=== PATIENT | female | born 1970 | race Caucasian/White ===

== ENCOUNTER 2016-10-19 14:25 | Emergency (ER) | payer BC ==
[~2016-10-19 14:25] MED LIST: ALLE180T33 PO; BIAX500T PO; BIOT300T PO; FLUTISP; PERCOCET PO; SINGULAIR PO; TOPA100T PO; VICO7.5T11 PO; VITA500019 PO; ZANT150T PO; [UNRECOGNIZED DRUG - OTHER] PO
[2016-10-19] MEDS ORDERED: ONDANSETRON 4MG/2ML VIAL (J2405) As Ordered ONE (15:00)
[2016-10-19 15:13] LABS: BASO % 0.5 % (0.0-1.0); EOS # 0.3 K/mm3 (0.0-0.50); EOS % 3.3 % (0.0-3.0); LARGE UNSTAINED CELL # 0.2 K/mm3 (0.0-0.4); LARGE UNSTAINED CELL % 2.1 % (0.0-4.0); LYMPH # 3.1 K/mm3 (1.5-4.5); LYMPH % 32.7 % (24.0-44.0); MEAN CORPUSCULAR HEMOGLOBIN 28.6 pg (27.0-33.0); MEAN CORPUSCULAR HGB CONC 33.8 g/dl (32.0-36.5); MEAN CORPUSCULAR VOLUME 84.6 fl (80.0-96.0); MONO # 0.5 K/mm3 (0.0-0.8); MONO % 5.8 % (0.0-5.0); NEUTROPHILS # 5.2 K/mm3 (1.8-7.7); NEUTROPHILS % 55.6 % (36.0-66.0); PLATELET COUNT, AUTOMATED 278 k/mm3 (150-450); RED CELL DISTRIBUTION WIDTH 12.7 % (11.5-14.5); WHITE BLOOD COUNT 9.3 K/mm3 (4.0-10.0)
[2016-10-19 15:31] LABS: ALBUMIN 3.8 GM/DL (3.2-5.2); ALBUMIN/GLOBULIN RATIO 1.46 (1.00-1.93); ALKALINE PHOSPHATASE 48 U/L (45-117); ALT/SGPT 18 U/L (12-78); ANION GAP 9 MEQ/L (8-16); AST/SGOT 15 U/L (15-37); BILIRUBIN,DIRECT < 0.1 MG/DL (0.0-0.2); BILIRUBIN,TOTAL 0.1 MG/DL (0.2-1.0); BLOOD UREA NITROGEN 17 MG/DL (7-18); CALCIUM LEVEL 8.3 MG/DL (8.5-10.1); CARBON DIOXIDE LEVEL 21 MEQ/L (21-32); CHLORIDE LEVEL 110 MEQ/L (98-107); CREATININE FOR GFR 0.97 MG/DL (0.55-1.02); GLOMERULAR FILTRATION RATE > 60.0 (>58); GLUCOSE, FASTING 122 MG/DL (70-105); POTASSIUM SERUM 3.7 MEQ/L (3.5-5.1); SODIUM LEVEL 140 MEQ/L (136-145); TOTAL PROTEIN 6.4 GM/DL (6.4-8.2)
--- NOTE | 2016-10-19 16:53 | REP ---
Abdominal right upper quadrant ultrasound: There is a positive Richards's sign to transducer pressure over the right upper quadrant. The pancreas is obscured by bowel. There is no cholelithiasis, gallbladder wall thickening or pericholecystic fluid. There is no intrahepatic biliary duct dilatation. The common duct is not identified or measured. The right kidney is normal size surgeon: Seventh craniocaudad length. There is no hydronephrosis or calculus. There are scattered microcalcifications, likely vascular atheroma. There is a small sub centimeter upper pole renal cortical cyst. Impression: No cholelithiasis. No evidence of acute cholecystitis. No intrahepatic biliary duct dilatation, the common duct is not identified and measured. No hydronephrosis. Right renal cortical cyst. Pancreas obscured by bowel. No ascites. Signed by Daniel Wilcox MD 10/19/2016 04:44 P
[2016-10-19] MEDS ORDERED: GASTROGRAFIN SOLUTION 30ML (Q9963) As Ordered ONE (17:22)
[2016-10-19] MEDS ORDERED: ISOVUE-370 76% 100ML VIAL (Q9967) As Ordered ONE (18:56)
--- NOTE | 2016-10-19 19:50 | REPUSA ---
CLINICAL HISTORY: Abdominal pain. TECHNIQUE: Multiple axial, sagittal and coronal CT images were obtained through the abdomen and pelvi s after administration of oral and intravenous contrast material. COMMENTS: The liver is of uniform attenuation without mass or defect. There is no intra or extrahepatic biliary ductal dilatation. The spleen is normal. The gallbladder is within normal limits. The pancreas is of normal contour and attenuation characteristics. There is no evidence of adrenal mass. Both kidneys demonstrate prompt and equal nephrograms. The kidneys are normal in size, shape and conf iguration. There is no evidence of renal or ureteral mass. No renal or ureteral calculi are identifie d. There is no hydroureter or hydronephrosis. No evidence for appendicitis. There is no bowel wall thickening. No evidence for small or large araceli l obstruction. There is no evidence of abdominal ascites or lymphadenopathy. There is no evidence of intrinsic or extrinsic bladder mass. There is no pelvic ascites or lymphadeno agustín. S/p hysterectomy. Images of the lung bases show no evidence of pleural or parenchymal mass. There are no pleural effusi ons. The bony structures are free of lytic or blastic lesions. Multilev IMPRESSION: No evidence of acute abdominal or pelvic pathology. Thank you for your kind referral of this patient.
--- NOTE | 2016-10-19 21:03 | EDDOCDS ---
Nurse's Notes [facility] Name: Ashlee Christine Age: 46 yrs Sex: Female : 1970 Arrival Date: 10/19/2016 Time: 14:25 Bed 10 Private MD: Sil Diagnosis: Generalized abdominal pain Presentation: 10/19 14:28 Presenting complaint: Patient states: Sharp abdominal pain radiating to back and up to ck1 shoulders. C/O Nausea, denies vomiting. Risk factors: the patient reports no vaginal bleeding. Adult Sepsis Screening: The patient does not have new or worsening altered mentation. Patient's respiratory rate is less than 22. Systolic blood pressure is greater than 100. Patient has a qSOFA score of 0- Negative Sepsis Screen. Suicide/Homicide risk assessment- the patient denies having any suicidal and/or homicidal ideations and does not present with any other emotional, behavioral or mental health complaints. Status: Patient is not a neon sign servicer or dependent. Transition of care: patient was not received from another setting of care. 14:28 Acuity: POP Level 3 ck1 14:28 Method Of Arrival: Walkin/Carried/Asstd ck1 Triage Assessment: 14:35 General: Appears in no apparent distress, comfortable, Behavior is appropriate for age, ck1 cooperative. Pain: Location: back Pain currently is 5 out of 10 on a pain scale. HIV screening NA for this visit Offered previously. Respiratory: Respiratory effort is unlabored, Respiratory pattern is regular, symmetrical. GI: Reports nausea, Denies vomiting, no BM x's 3 days. Derm: Skin is intact, is healthy with good turgor, Skin is pink, warm & dry. GEOLOGICAL E LOGGER: 14:35 LMP N/A - partial hysterectomy ck1 Historical: - Allergies: Morphine (Vomit); - Home Meds: 1. Topamax 100 mg Oral tab daily 2. Nortriptyline Unknown Oral once daily 3. Singulair 10 mg Oral tab 1 tab once daily 4. Phenobarbital Oral once daily 5. Shaista 180 mg oral tab once daily 6. omeprazole 40 mg Oral cpDR 1 cap 2 times per day 7. cefdinir 300 mg Oral cap 1 cap every 12 hours 8. Vicodin ES 7.5-300 mg Oral tab PRN (Last dose: Unknown) - PMHx: GERD; Seasonal Allergies; gallbladder disease; - PSHx: back surgery; partial hysterectomy; Laparoscopy; - Social history: Smoking status: Patient states former smoker of tobacco. No barriers to communication noted, The patient speaks fluent Croatian, Speaks appropriately for age. - Family history: Not pertinent. - : The pt / caregiver states he / she is not on anticoagulants. Home medication list is obtained from the patient. - Exposure Risk Screening:: None identified. Screenin:03 Screening information is obtained from the patient. Fall risk: No risks identified. kr3 Assistance ADL's: requires no assistance with activities of daily living. Abuse/DV Screen: The patient / caregiver reports he/she is: not in a situation that causes fear, pain or injury. Nutritional screening: No deficits noted. Advance Directives: Currently, there is no health care proxy. home support is adequate. Assessment: 15:02 General: Appears in no apparent distress, comfortable, Behavior is appropriate for age, kr3 cooperative. Pain: Location: right upper quadrant Pain currently is 4 out of 10 on a pain scale. Neurological: No deficits noted. Respiratory: Respiratory effort is even, unlabored. GI: Abdomen is distended, Bowel sounds present X 4 quads. Abd is tender to palpation in right upper quadrant Reports bloating, constipation, nausea. Derm: Skin is pink, warm & dry. 15:27 Reassessment: Patient states feeling better. resting with eyes closed. kr3 16:32 Reassessment: Patient appears in no apparent distress at this time. Pain: Location: kr3 right upper quadrant Pain currently is 0 out of 10 on a pain scale. At worst was 8 out of 10 on a pain scale. Pain: Quality of pain is described as sharp, stabbing. GI: Denies nausea. Derm: Skin is normal. 16:32 Adult Sepsis Screening: The patient does not have new or worsening altered mentation. kr3 Patient's respiratory rate is less than 22. Patient has a qSOFA score of 0- Negative Sepsis Screen. 17:14 Reassessment: Patient appears in no apparent distress at this time. kr3 18:44 Reassessment: Patient appears in no apparent distress at this time. resting with eyes kr3 closed. Respiratory: Respiratory effort is even, unlabored. 19:19 Reassessment: continues to c/o upper abdominal pain.. General: Appears in no apparent jp6 distress, comfortable, Behavior is appropriate for age, cooperative. Pain: Location: abdomen Pain currently is 4 out of 10 on a pain scale. Neurological: No deficits noted. EENT: No deficits noted. Cardiovascular: Capillary refill < 3 seconds Heart tones S1 S2 present. Respiratory: Airway is patent Respiratory effort is even, unlabored, Respiratory pattern is regular, symmetrical, Breath sounds are clear bilaterally. GI: Abdomen is distended, Bowel sounds present X 4 quads. hyperactive in right upper quadrant, left upper quadrant, right lower quadrant and left lower quadrant. : No deficits noted. Derm: Skin is pink, warm & dry. Musculoskeletal: No deficits noted. 21:00 Reassessment: Patient appears in no apparent distress at this time. Patient states jp6 feeling better. Pain: Pain currently is 2 out of 10 on a pain scale. Respiratory: Airway is patent Respiratory effort is even, unlabored, Respiratory pattern is regular, symmetrical. Derm: Skin is pink, warm & dry. Vital Signs: 14:27 BP 135 / 82; Pulse 80; Resp 18; Temp 97.4(O); Pulse Ox 100% on R/A; Weight 68.04 kg elp (R); Height 5 ft. 1 in. (154.94 cm) (R); Pain 8/10; 17:53 BP 106 / 62; Pulse 62; Resp 16; Pulse Ox 100% on R/A; kr3 21:00 BP 118 / 73; Pulse 68; Resp 16; Temp 96.6; Pulse Ox 95% on R/A; Pain 2/10; jp6 14:27 Body Mass Index 28.34 (68.04 kg, 154.94 cm) [facility] Vitals: 14:27 Log In Time: October 19, 2016 at 14:17. [facility] ED Course: 14:26 Patient visited by Arielle Coffman PCA. elp 14:26 Patient moved to Waiting elp 14:27 Sil is Private Physician. elp 14:28 Patient visited by Arielle Coffman PCA. elp 14:28 Patient moved to Pre RCE elp 14:30 Triage Initiated ck1 14:36 Elsi Durham,NELSON is Primary Nurse. ck1 14:36 Kevin Arteaga MD is Attending Physician. br1 14:36 Patient moved to 10 ck1 14:45 Patient visited by Kevin Arteaga MD. br1 15:01 Lipase Sent. kr3 15:01 Liver Profile Sent. kr3 15:02 BMP Sent. kr3 15:02 CBC with Diff Sent. kr3 15:03 The patient / caregiver is instructed regarding the plan of care and ED course. Patient janeth has correct armband on for positive identification. Placed in gown. Bed in low position. Side rails up X 1. 15:27 Patient visited by Elsi Durham RN. kr3 16:03 Patient moved to Ultrasound kr3 16:03 Inserted saline lock: 20 gauge in left antecubital area The patient tolerated the kr3 procedure well. 16:03 No procedures done that require assistance. kr3 16:31 Patient moved to 10 kr3 16:32 Patient visited by Elsi Durham RN. kr3 17:08 [facility] Payment Agreement was scanned into [employer] and attached to record. zo 17:12 Patient visited by Kevin Arteaga MD. br1 17:14 Assisted to bathroom. kr3 17:30 Ultrasound Abd Limited Returned. EDMS 17:47 Patient visited by Elsi Durham RN. kr3 18:44 Patient visited by Elsi Durham RN. kr3 19:29 Primary Nurse role handed off by Elsi Durham RN jp6 19:29 Jeannie Thacker,RN is Primary Nurse. jp6 20:01 Patient visited by Jeannie Thacker RN. jp6 20:05 Patient visited by Kevin Arteaga MD. br1 20:14 Sil is Referral Physician. br1 20:14 Edu Fernando is Referral Physician. br1 20:14 CT ABD & PELVIS: IV and Oral Contrast Returned. EDMS 21:00 Discontinued lock intact, bleeding controlled, pressure dressing applied, No jp6 redness/swelling at site. Administered Medications: 15:01 Not Given (Patient Refused): morphine 4 mg IVP once br1 15:05 Drug: Ondansetron 4 mg [ondansetron HCl 2 mg/mL intravenous solution (2 mL)] Route: ld5 IVP; Site: left antecubital; 15:27 Follow up: Response: Nausea is decreased kr3 15:13 Drug: NS 0.9% 1000 ml [sodium chloride 0.9 % intravenous solution] Route: IV; Rate: 150 ld5 mL/hr; Site: left antecubital; 17:37 Drug: Diatrizoate Meglumine & Sodium 10 ml [diatrizoate meglumine and diat.sodium 66 kr3 %-10 % oral solution (10 mL)] Route: PO; 18:05 Drug: Diatrizoate Meglumine & Sodium 10 ml [diatrizoate meglumine and diat.sodium 66 kr3 %-10 % oral solution (10 mL)] Route: PO; Order Results: Lab Order: CBC with Diff; SPEC'M 10/19/16 14:59 Test: WHITE BLOOD COUNT; Value: 9.3; Range: 4.0-10.0; Units: K/mm3; Status: F Test: RED BLOOD COUNT; Value: 4.62; Range: 4.00-5.40; Units: M/mm3; Status: F Test: HEMOGLOBIN; Value: 13.2; Range: 12.0-16.0; Units: g/dl; Status: F Test: HEMATOCRIT; Value: 39.1; Range: 36.0-47.0; Units: %; Status: F Test: MEAN CORPUSCULAR VOLUME; Value: 84.6; Range: 80.0-96.0; Units: fl; Status: F Test: MEAN CORPUSCULAR HEMOGLOBIN; Value: 28.6; Range: 27.0-33.0; Units: pg; Status: F Test: MEAN CORPUSCULAR HGB CONC; Value: 33.8; Range: 32.0-36.5; Units: g/dl; Status: F Test: RED CELL DISTRIBUTION WIDTH; Value: 12.7; Range: 11.5-14.5; Units: %; Status: F Test: PLATELET COUNT, AUTOMATED; Value: 278; Range: 150-450; Units: k/mm3; Status: F Test: NEUTROPHILS %; Value: 55.6; Range: 36.0-66.0; Units: %; Status: F Test: LYMPH %; Value: 32.7; Range: 24.0-44.0; Units: %; Status: F Test: MONO %; Value: 5.8; Range: 0.0-5.0; Abnormal: Above high normal; Units: %; Status: F Test: EOS %; Value: 3.3; Range: 0.0-3.0; Abnormal: Above high normal; Units: %; Status: F Test: BASO %; Value: 0.5; Range: 0.0-1.0; Units: %; Status: F Test: LARGE UNSTAINED CELL %; Value: 2.1; Range: 0.0-4.0; Units: %; Status: F Test: NEUTROPHILS #; Value: 5.2; Range: 1.8-7.7; Units: K/mm3; Status: F Test: LYMPH #; Value: 3.1; Range: 1.5-4.5; Units: K/mm3; Status: F Test: MONO #; Value: 0.5; Range: 0.0-0.8; Units: K/mm3; Status: F Test: EOS #; Value: 0.3; Range: 0.0-0.50; Units: K/mm3; Status: F Test: BASO #; Value: 0.0; Range: 0.0-0.2; Units: K/mm3; Status: F Test: LARGE UNSTAINED CELL #; Value: 0.2; Range: 0.0-0.4; Units: K/mm3; Status: F Lab Order: [facility]; SPEC'M 10/19/16 14:59 Test: GLUCOSE, FASTING; Value: 122; Range: 70-105; Abnormal: Above high normal; Units: MG/DL; Status: F Test: BLOOD UREA NITROGEN; Value: 17; Range: 7-18; Units: MG/DL; Status: F Test: CREATININE FOR GFR; Value: 0.97; Range: 0.55-1.02; Units: MG/DL; Status: F Test: GLOMERULAR FILTRATION RATE; Value: > 60.0; Range: >58; Status: F Test: SODIUM LEVEL; Value: 140; Range: 136-145; Units: MEQ/L; Status: F Test: POTASSIUM SERUM; Value: 3.7; Range: 3.5-5.1; Units: MEQ/L; Status: F Test: CHLORIDE LEVEL; Value: 110; Range: 98-107; Abnormal: Above high normal; Units: MEQ/L; Status: F Test: CARBON DIOXIDE LEVEL; Value: 21; Range: 21-32; Units: MEQ/L; Status: F Test: ANION GAP; Value: 9; Range: 8-16; Units: MEQ/L; Status: F Test: CALCIUM LEVEL; Value: 8.3; Range: 8.5-10.1; Abnormal: Below low normal; Units: MG/DL; Status: F Test Note: ; Units are mL/min/1.73 m2 Chronic Kidney Disease Staging per NKF: Stage I & II GFR >=60 Normal to Mildly Decreased Stage III GFR 30-59 Moderately Decreased Stage IV GFR 15-29 Severely Decreased Stage V GFR <15 Very Little GFR Left ESRD GFR <15 on PILOT FUEL ENGINEER Lab Order: Liver Profile; SPEC'M 10/19/16 14:59 Test: AST/SGOT; Value: 15; Range: 15-37; Units: U/L; Status: F Test: ALT/SGPT; Value: 18; Range: 12-78; Units: U/L; Status: F Test: ALKALINE PHOSPHATASE; Value: 48; Range: 45-117; Units: U/L; Status: F Test: BILIRUBIN,TOTAL; Value: 0.1; Range: 0.2-1.0; Abnormal: Below low normal; Units: MG/DL; Status: F Test: BILIRUBIN,DIRECT; Value: < 0.1; Range: 0.0-0.2; Units: MG/DL; Status: F Test: TOTAL PROTEIN; Value: 6.4; Range: 6.4-8.2; Units: GM/DL; Status: F Test: ALBUMIN; Value: 3.8; Range: 3.2-5.2; Units: GM/DL; Status: F Test: ALBUMIN/GLOBULIN RATIO; Value: 1.46; Range: 1.00-1.93; Status: F Lab Order: Lipase; SPEC'10/19/16 14:59 Test: LIPASE; Value: 215; Range: 73-393; Units: U/L; Status: F Radiology Order: Ultrasound Abd Limited Test: Ultrasound Abd Limited REASON FOR EXAMINATION: Biliary Colic; Abdominal right upper quadrant ultrasound:; ; There is a positive Richards's sign to transducer pressure over the right upper; quadrant.; ; The pancreas is obscured by bowel.; ; There is no cholelithiasis, gallbladder wall thickening or pericholecystic; fluid.; ; There is no intrahepatic biliary duct dilatation. The common duct is not; identified or measured.; ; The right kidney is normal size surgeon: Seventh craniocaudad length. There is; no hydronephrosis or calculus. There are scattered microcalcifications, likely; vascular atheroma.; ; There is a small sub centimeter upper pole renal cortical cyst.; ; Impression:; ; No cholelithiasis. No evidence of acute cholecystitis. No intrahepatic biliary; duct dilatation, the common duct is not identified and measured.; ; No hydronephrosis. Right renal cortical cyst. Pancreas obscured by bowel.; ; No ascites.; ; ; Signed by; Daniel Wilcox MD 10/19/2016 04:44 P; Radiology Order: CT ABD & PELVIS: IV and Oral Contrast Test: CT ABD & PELVIS: IV and Oral Contrast REASON FOR EXAMINATION: Abdomen Pain; ; CLINICAL HISTORY: Abdominal pain.; TECHNIQUE: Multiple axial, sagittal and coronal CT images were obtained through the abdomen and pelvi; s after administration of oral and intravenous contrast material.; COMMENTS:; The liver is of uniform attenuation without mass or defect. There is no intra or extrahepatic biliary; ductal dilatation. The spleen is normal. The gallbladder is within normal limits. The pancreas is of; normal contour and attenuation characteristics. There is no evidence of adrenal mass.; Both kidneys demonstrate prompt and equal nephrograms. The kidneys are normal in size, shape and conf; iguration. There is no evidence of renal or ureteral mass. No renal or ureteral calculi are identifie; d. There is no hydroureter or hydronephrosis.; No evidence for appendicitis. There is no bowel wall thickening. No evidence for small or large araceli; l obstruction. There is no evidence of abdominal ascites or lymphadenopathy.; There is no evidence of intrinsic or extrinsic bladder mass. There is no pelvic ascites or lymphadeno; agustín. S/p hysterectomy.; Images of the lung bases show no evidence of pleural or parenchymal mass. There are no pleural effusi; ons.; The bony structures are free of lytic or blastic lesions. Multilev; IMPRESSION:; No evidence of acute abdominal or pelvic pathology.; Thank you for your kind referral of this patient.; ; Outcome: 16:03 Ultrasound Study completed. kr3 20:14 Discharge ordered by Provider. br1 21:00 Discharge Assessment: Patient awake, alert and oriented x 3. No cognitive and/or jp6 functional deficits noted. Patient verbalized understanding of disposition instructions. patient administered narcotics - yes. Pt provided with safe discharge. The following High Risk Discharge criteria are identified: None. Discharged to home ambulatory. Condition: good Condition: improved. Discharge instructions given to patient, Instructed on discharge instructions, follow up and referral plans. medication usage, Demonstrated understanding of instructions, medications, Pt was receptive of discharge instructions/ teaching. Prescriptions given X 2. Property sent home with patient. 21:02 Patient left the ED. jp6 Signatures: Dispatcher [employer] EDMS Danielle Cope,RN RN ck1 Elsi Durham,RN RN kr3 Marsha Francisco Brian, MD MD br1 Kayley Williamson,RN RN ld5 Arielle Coffman, Jeannie Marquez,RN RN jp6 Corrections: (The following items were deleted from the chart) 15:03 14:34 Allergies: no known allergies; ck1 kr3 MTDJeannine
--- NOTE | 2016-10-19 21:03 | EDDOCDS ---
Physician Documentation [facility] Name: Ashlee Christine Age: 46 yrs Sex: Female : 1970 Arrival Date: 10/19/2016 Time: 14:25 Bed 10 Private MD: Sil Disposition: 10/19 20:18 A printed prescription was provided to the patient due to temporary technical issues br1 which prevented electronic transmission. Disposition: 10/19/16 20:14 Discharged to Home/Self Care. Impression: Generalized abdominal pain. - Condition is Stable. - Discharge Instructions: Abdominal Pain, Adult. - Prescriptions for Percocet 5- 325 mg Oral Tablet - take 1 tablet by ORAL route every 6 hours As needed MDD: 4 tabs; 10 tablet. ZOFRAN ODT 4 mg - dissolve 1 tablet by ORAL route 4 times per day As needed do not chew, do not swallow whole; 10 tablet. - Medication Reconciliation, Local Pharmacy Hours form. - Follow up: Sil; When: 2 - 3 days; Reason: Recheck today's complaints. Follow up: Edu Fernando; When: 2 - 3 days; Reason: Recheck today's complaints. - Problem is new. - Symptoms are unchanged. - Notes: You were seen in the ED for abdominal pain. Bloodwork along with ultrasound and CT scan of the abdomen showed no clear cause of the symptoms. Ultrasound did show a renal cyst that will need recheck and further evaluation with your primary doctor. You may take Percocet as needed for pain (no driving or operating machinery while on this medicine). You may take Zofran as needed for nausea. Call your primary doctor and your GI doctor in the morning to discuss today's ED visit and arrange to be seen.
Return to the ED for any return or worsening of pain, fever, inability to tolerate oral foods or liquids or any other concerns. Historical: - Allergies: Morphine (Vomit); - Home Meds: 1. Topamax 100 mg Oral tab daily 2. Nortriptyline Unknown Oral once daily 3. Singulair 10 mg Oral tab 1 tab once daily 4. Phenobarbital Oral once daily 5. Shaista 180 mg oral tab once daily 6. omeprazole 40 mg Oral cpDR 1 cap 2 times per day 7. cefdinir 300 mg Oral cap 1 cap every 12 hours 8. Vicodin ES 7.5-300 mg Oral tab PRN (Last dose: Unknown) - PMHx: GERD; Seasonal Allergies; gallbladder disease; - PSHx: back surgery; partial hysterectomy; Laparoscopy; - Social history: Smoking status: Patient states former smoker of tobacco. No barriers to communication noted, The patient speaks fluent Maldivian, Speaks appropriately for age. - Family history: Not pertinent. - : The pt / caregiver states he / she is not on anticoagulants. Home medication list is obtained from the patient. - Exposure Risk Screening:: None identified. DIRECTOR OF SPECIAL EDUCATION: 14:35 LMP N/A - partial hysterectomy ck1 Vital Signs: 14:27 BP 135 / 82; Pulse 80; Resp 18; Temp 97.4(O); Pulse Ox 100% on R/A; Weight 68.04 kg / elp 150 lbs (R); Height 5 ft. 1 in. (154.94 cm) (R); Pain 8/10; 17:53 BP 106 / 62; Pulse 62; Resp 16; Pulse Ox 100% on R/A; kr3 21:00 BP 118 / 73; Pulse 68; Resp 16; Temp 96.6; Pulse Ox 95% on R/A; Pain 2/10; jp6 14:27 Body Mass Index 28.34 (68.04 kg, 154.94 cm) elp MDM: 14:47 IV Saline Lock ordered. br1 14:47 NS 0.9% 1000 ml IV at 150 mL/hr continuous ordered. br1 14:47 morphine 4 mg IVP once ordered. br1 14:47 Ondansetron 4 mg IVP once ordered. br1 14:48 CBC with Diff Ordered. EDMS 14:48 BMP Ordered. EDMS 14:48 Liver Profile Ordered. EDMS 14:48 Lipase Ordered. EDMS 14:49 Ultrasound Abd Limited Ordered. EDMS 14:49 NOTHING BY MOUTH+DIET ordered. EDMS 15:24 CBC with Diff Reviewed. br1 15:35 BMP Reviewed. br1 15:35 Liver Profile Reviewed. br1 15:35 Lipase Reviewed. br1 17:05 Financial registration complete. zo 17:08 [facility] Payment Agreement was scanned into [employer] and attached to record. zo 17:13 CT ABD & PELVIS: IV and Oral Contrast Ordered. EDMS 17:21 Diatrizoate Meglumine & Sodium Liquid 10 ml PO once; mix in 290cc of water give at 5:35 kr3 ordered. 17:21 Diatrizoate Meglumine & Sodium Liquid 10 ml PO once; mix in 290cc of water give at 6:05 kr3 ordered. Administered Medications: 15:01 Not Given (Patient Refused): morphine 4 mg IVP once br1 15:05 Drug: Ondansetron 4 mg [ondansetron HCl 2 mg/mL intravenous solution (2 mL)] Route: ld5 IVP; Site: left antecubital; 15:27 Follow up: Response: Nausea is decreased kr3 15:13 Drug: NS 0.9% 1000 ml [sodium chloride 0.9 % intravenous solution] Route: IV; Rate: 150 ld5 mL/hr; Site: left antecubital; 17:37 Drug: Diatrizoate Meglumine & Sodium 10 ml [diatrizoate meglumine and diat.sodium 66 kr3 %-10 % oral solution (10 mL)] Route: PO; 18:05 Drug: Diatrizoate Meglumine & Sodium 10 ml [diatrizoate meglumine and diat.sodium 66 kr3 %-10 % oral solution (10 mL)] Route: PO; Signatures: Dispatcher [employer] EDMS Danielle CopeRN RN ck1 Elsi Durham RN RN kr3 Marsha Francisco Brian, MD MD br1 Jeannie Thacker RN RN jp6 Kayley Williamson RN ld5 The chart was reviewed and I authenticate all verbal orders and agree with the evaluation and treatment provided.Corrections: (The following items were deleted from the chart) 15:03 14:34 Allergies: no known allergies; ck1 kr3 Attachments: 17:08 [facility] [place] [place] [facility]
--- NOTE | 2016-10-21 22:03 | EDDOCDS ---
Nurse's Notes [facility] Name: Ashlee Christine Age: 46 yrs Sex: Female : 1970 Arrival Date: 10/19/2016 Time: 14:25 Bed 10 Private MD: Sil Diagnosis: Generalized abdominal pain Presentation: 10/19 14:28 Presenting complaint: Patient states: Sharp abdominal pain radiating to back and up to ck1 shoulders. C/O Nausea, denies vomiting. Risk factors: the patient reports no vaginal bleeding. Adult Sepsis Screening: The patient does not have new or worsening altered mentation. Patient's respiratory rate is less than 22. Systolic blood pressure is greater than 100. Patient has a qSOFA score of 0- Negative Sepsis Screen. Suicide/Homicide risk assessment- the patient denies having any suicidal and/or homicidal ideations and does not present with any other emotional, behavioral or mental health complaints. Status: Patient is not a bilingual customer service or dependent. Transition of care: patient was not received from another setting of care. 14:28 Acuity: POP Level 3 ck1 14:28 Method Of Arrival: Walkin/Carried/Asstd ck1 Triage Assessment: 14:35 General: Appears in no apparent distress, comfortable, Behavior is appropriate for age, ck1 cooperative. Pain: Location: back Pain currently is 5 out of 10 on a pain scale. HIV screening NA for this visit Offered previously. Respiratory: Respiratory effort is unlabored, Respiratory pattern is regular, symmetrical. GI: Reports nausea, Denies vomiting, no BM x's 3 days. Derm: Skin is intact, is healthy with good turgor, Skin is pink, warm & dry. 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 Topamax 100 mg Oral tab daily 2. Nortriptyline Unknown Oral once daily 3. Singulair 10 mg Oral tab 1 tab once daily 4. Phenobarbital Oral once daily 5. Shaista 180 mg oral tab once daily 6. omeprazole 40 mg Oral cpDR 1 cap 2 times per day 7. cefdinir 300 mg Oral cap 1 cap every 12 hours 8. Vicodin ES 7.5-300 mg Oral tab PRN (Last dose: Unknown) - PMHx: GERD; Seasonal Allergies; gallbladder disease; - PSHx: back surgery; partial hysterectomy; Laparoscopy; - Social history: Smoking status: Patient states former smoker of tobacco. No barriers to communication noted, The patient speaks fluent Vietnamese, Speaks appropriately for age. - Family history: Not pertinent. - : The pt / caregiver states he / she is not on anticoagulants. Home medication list is obtained from the patient. - Exposure Risk Screening:: None identified. Screenin:03 Screening information is obtained from the patient. Fall risk: No risks identified. kr3 Assistance ADL's: requires no assistance with activities of daily living. Abuse/DV Screen: The patient / caregiver reports he/she is: not in a situation that causes fear, pain or injury. Nutritional screening: No deficits noted. Advance Directives: Currently, there is no health care proxy. home support is adequate. Assessment: 15:02 General: Appears in no apparent distress, comfortable, Behavior is appropriate for age, kr3 cooperative. Pain: Location: right upper quadrant Pain currently is 4 out of 10 on a pain scale. Neurological: No deficits noted. Respiratory: Respiratory effort is even, unlabored. GI: Abdomen is distended, Bowel sounds present X 4 quads. Abd is tender to palpation in right upper quadrant Reports bloating, constipation, nausea. Derm: Skin is pink, warm & dry. 15:27 Reassessment: Patient states feeling better. resting with eyes closed. kr3 16:32 Reassessment: Patient appears in no apparent distress at this time. Pain: Location: kr3 right upper quadrant Pain currently is 0 out of 10 on a pain scale. At worst was 8 out of 10 on a pain scale. Pain: Quality of pain is described as sharp, stabbing. GI: Denies nausea. Derm: Skin is normal. 16:32 Adult Sepsis Screening: The patient does not have new or worsening altered mentation. kr3 Patient's respiratory rate is less than 22. Patient has a qSOFA score of 0- Negative Sepsis Screen. 17:14 Reassessment: Patient appears in no apparent distress at this time. kr3 18:44 Reassessment: Patient appears in no apparent distress at this time. resting with eyes kr3 closed. Respiratory: Respiratory effort is even, unlabored. 19:19 Reassessment: continues to c/o upper abdominal pain.. General: Appears in no apparent jp6 distress, comfortable, Behavior is appropriate for age, cooperative. Pain: Location: abdomen Pain currently is 4 out of 10 on a pain scale. Neurological: No deficits noted. EENT: No deficits noted. Cardiovascular: Capillary refill < 3 seconds Heart tones S1 S2 present. Respiratory: Airway is patent Respiratory effort is even, unlabored, Respiratory pattern is regular, symmetrical, Breath sounds are clear bilaterally. GI: Abdomen is distended, Bowel sounds present X 4 quads. hyperactive in right upper quadrant, left upper quadrant, right lower quadrant and left lower quadrant. : No deficits noted. Derm: Skin is pink, warm & dry. Musculoskeletal: No deficits noted. 21:00 Reassessment: Patient appears in no apparent distress at this time. Patient states jp6 feeling better. Pain: Pain currently is 2 out of 10 on a pain scale. Respiratory: Airway is patent Respiratory effort is even, unlabored, Respiratory pattern is regular, symmetrical. Derm: Skin is pink, warm & dry. Vital Signs: 14:27 BP 135 / 82; Pulse 80; Resp 18; Temp 97.4(O); Pulse Ox 100% on R/A; Weight 68.04 kg elp (R); Height 5 ft. 1 in. (154.94 cm) (R); Pain 8/10; 17:53 BP 106 / 62; Pulse 62; Resp 16; Pulse Ox 100% on R/A; kr3 21:00 BP 118 / 73; Pulse 68; Resp 16; Temp 96.6; Pulse Ox 95% on R/A; Pain 2/10; jp6 14:27 Body Mass Index 28.34 (68.04 kg, 154.94 cm) [facility] Vitals: 14:27 Log In Time: October 19, 2016 at 14:17. [facility] ED Course: 14:26 Patient visited by Arielle Coffman PCA. elp 14:26 Patient moved to Waiting elp 14:27 Sil is Private Physician. elp 14:28 Patient visited by Arielle Coffman PCA. elp 14:28 Patient moved to Pre RCE elp 14:30 Triage Initiated ck1 14:36 Elsi Durham,NELSON is Primary Nurse. ck1 14:36 Kevin Arteaga MD is Attending Physician. br1 14:36 Patient moved to 10 ck1 14:45 Patient visited by Kevin Arteaga MD. br1 15:01 Lipase Sent. kr3 15:01 Liver Profile Sent. kr3 15:02 BMP Sent. kr3 15:02 CBC with Diff Sent. kr3 15:03 The patient / caregiver is instructed regarding the plan of care and ED course. Patient janeth has correct armband on for positive identification. Placed in gown. Bed in low position. Side rails up X 1. 15:27 Patient visited by Elsi Durham RN. kr3 16:03 Patient moved to Ultrasound kr3 16:03 Inserted saline lock: 20 gauge in left antecubital area The patient tolerated the kr3 procedure well. 16:03 No procedures done that require assistance. kr3 16:31 Patient moved to 10 kr3 16:32 Patient visited by Elsi Durham RN. kr3 17:08 [facility] Payment Agreement was scanned into [employer] and attached to record. zo 17:12 Patient visited by Kevin Arteaga MD. br1 17:14 Assisted to bathroom. kr3 17:30 Ultrasound Abd Limited Returned. EDMS 17:47 Patient visited by Elsi Durham RN. kr3 18:44 Patient visited by Elsi Durham RN. kr3 19:29 Primary Nurse role handed off by Elsi Durham RN jp6 19:29 Jeannie Thacker,RN is Primary Nurse. jp6 20:01 Patient visited by Jeannie Thacker RN. jp6 20:05 Patient visited by Kevin Arteaga MD. br1 20:14 Sil is Referral Physician. br1 20:14 Edu Fernando is Referral Physician. br1 20:14 CT ABD & PELVIS: IV and Oral Contrast Returned. EDMS 21:00 Discontinued lock intact, bleeding controlled, pressure dressing applied, No jp6 redness/swelling at site. 10/20 09:09 T-Sheet-- Draft Copy was scanned into [employer] and attached to record. gb 09:10 Radiology Report was scanned into [employer] and attached to record. gb Administered Medications: 10/19 15:01 Not Given (Patient Refused): morphine 4 mg IVP once br1 15:05 Drug: Ondansetron 4 mg [ondansetron HCl 2 mg/mL intravenous solution (2 mL)] Route: ld5 IVP; Site: left antecubital; 15:27 Follow up: Response: Nausea is decreased kr3 15:13 Drug: NS 0.9% 1000 ml [sodium chloride 0.9 % intravenous solution] Route: IV; Rate: 150 ld5 mL/hr; Site: left antecubital; 17:37 Drug: Diatrizoate Meglumine & Sodium 10 ml [diatrizoate meglumine and diat.sodium 66 kr3 %-10 % oral solution (10 mL)] Route: PO; 18:05 Drug: Diatrizoate Meglumine & Sodium 10 ml [diatrizoate meglumine and diat.sodium 66 kr3 %-10 % oral solution (10 mL)] Route: PO; Order Results: Lab Order: CBC with Diff; SPEC'M 10/19/16 14:59 Test: WHITE BLOOD COUNT; Value: 9.3; Range: 4.0-10.0; Units: K/mm3; Status: F Test: RED BLOOD COUNT; Value: 4.62; Range: 4.00-5.40; Units: M/mm3; Status: F Test: HEMOGLOBIN; Value: 13.2; Range: 12.0-16.0; Units: g/dl; Status: F Test: HEMATOCRIT; Value: 39.1; Range: 36.0-47.0; Units: %; Status: F Test: MEAN CORPUSCULAR VOLUME; Value: 84.6; Range: 80.0-96.0; Units: fl; Status: F Test: MEAN CORPUSCULAR HEMOGLOBIN; Value: 28.6; Range: 27.0-33.0; Units: pg; Status: F Test: MEAN CORPUSCULAR HGB CONC; Value: 33.8; Range: 32.0-36.5; Units: g/dl; Status: F Test: RED CELL DISTRIBUTION WIDTH; Value: 12.7; Range: 11.5-14.5; Units: %; Status: F Test: PLATELET COUNT, AUTOMATED; Value: 278; Range: 150-450; Units: k/mm3; Status: F Test: NEUTROPHILS %; Value: 55.6; Range: 36.0-66.0; Units: %; Status: F Test: LYMPH %; Value: 32.7; Range: 24.0-44.0; Units: %; Status: F Test: MONO %; Value: 5.8; Range: 0.0-5.0; Abnormal: Above high normal; Units: %; Status: F Test: EOS %; Value: 3.3; Range: 0.0-3.0; Abnormal: Above high normal; Units: %; Status: F Test: BASO %; Value: 0.5; Range: 0.0-1.0; Units: %; Status: F Test: LARGE UNSTAINED CELL %; Value: 2.1; Range: 0.0-4.0; Units: %; Status: F Test: NEUTROPHILS #; Value: 5.2; Range: 1.8-7.7; Units: K/mm3; Status: F Test: LYMPH #; Value: 3.1; Range: 1.5-4.5; Units: K/mm3; Status: F Test: MONO #; Value: 0.5; Range: 0.0-0.8; Units: K/mm3; Status: F Test: EOS #; Value: 0.3; Range: 0.0-0.50; Units: K/mm3; Status: F Test: BASO #; Value: 0.0; Range: 0.0-0.2; Units: K/mm3; Status: F Test: LARGE UNSTAINED CELL #; Value: 0.2; Range: 0.0-0.4; Units: K/mm3; Status: F Lab Order: [facility]; SPEC'M 10/19/16 14:59 Test: GLUCOSE, FASTING; Value: 122; Range: 70-105; Abnormal: Above high normal; Units: MG/DL; Status: F Test: BLOOD UREA NITROGEN; Value: 17; Range: 7-18; Units: MG/DL; Status: F Test: CREATININE FOR GFR; Value: 0.97; Range: 0.55-1.02; Units: MG/DL; Status: F Test: GLOMERULAR FILTRATION RATE; Value: > 60.0; Range: >58; Status: F Test: SODIUM LEVEL; Value: 140; Range: 136-145; Units: MEQ/L; Status: F Test: POTASSIUM SERUM; Value: 3.7; Range: 3.5-5.1; Units: MEQ/L; Status: F Test: CHLORIDE LEVEL; Value: 110; Range: 98-107; Abnormal: Above high normal; Units: MEQ/L; Status: F Test: CARBON DIOXIDE LEVEL; Value: 21; Range: 21-32; Units: MEQ/L; Status: F Test: ANION GAP; Value: 9; Range: 8-16; Units: MEQ/L; Status: F Test: CALCIUM LEVEL; Value: 8.3; Range: 8.5-10.1; Abnormal: Below low normal; Units: MG/DL; Status: F Test Note: ; Units are mL/min/1.73 m2 Chronic Kidney Disease Staging per NKF: Stage I & II GFR >=60 Normal to Mildly Decreased Stage III GFR 30-59 Moderately Decreased Stage IV GFR 15-29 Severely Decreased Stage V GFR <15 Very Little GFR Left ESRD GFR <15 on [employer] Lab Order: Liver Profile; SPEC'M 10/19/16 14:59 Test: AST/SGOT; Value: 15; Range: 15-37; Units: U/L; Status: F Test: ALT/SGPT; Value: 18; Range: 12-78; Units: U/L; Status: F Test: ALKALINE PHOSPHATASE; Value: 48; Range: 45-117; Units: U/L; Status: F Test: BILIRUBIN,TOTAL; Value: 0.1; Range: 0.2-1.0; Abnormal: Below low normal; Units: MG/DL; Status: F Test: BILIRUBIN,DIRECT; Value: < 0.1; Range: 0.0-0.2; Units: MG/DL; Status: F Test: TOTAL PROTEIN; Value: 6.4; Range: 6.4-8.2; Units: GM/DL; Status: F Test: ALBUMIN; Value: 3.8; Range: 3.2-5.2; Units: GM/DL; Status: F Test: ALBUMIN/GLOBULIN RATIO; Value: 1.46; Range: 1.00-1.93; Status: F Lab Order: Lipase; SPEC'M 10/19/16 14:59 Test: LIPASE; Value: 215; Range: 73-393; Units: U/L; Status: F Radiology Order: Ultrasound Abd Limited Test: Ultrasound Abd Limited REASON FOR EXAMINATION: Biliary Colic; Abdominal right upper quadrant ultrasound:; ; There is a positive Richards's sign to transducer pressure over the right upper; quadrant.; ; The pancreas is obscured by bowel.; ; There is no cholelithiasis, gallbladder wall thickening or pericholecystic; fluid.; ; There is no intrahepatic biliary duct dilatation. The common duct is not; identified or measured.; ; The right kidney is normal size surgeon: Seventh craniocaudad length. There is; no hydronephrosis or calculus. There are scattered microcalcifications, likely; vascular atheroma.; ; There is a small sub centimeter upper pole renal cortical cyst.; ; Impression:; ; No cholelithiasis. No evidence of acute cholecystitis. No intrahepatic biliary; duct dilatation, the common duct is not identified and measured.; ; No hydronephrosis. Right renal cortical cyst. Pancreas obscured by bowel.; ; No ascites.; ; ; Signed by; Dnaiel Wilcox MD 10/19/2016 04:44 P; Radiology Order: CT ABD & PELVIS: IV and Oral Contrast Test: CT ABD & PELVIS: IV and Oral Contrast REASON FOR EXAMINATION: Abdomen Pain; ; CLINICAL HISTORY: Abdominal pain.; TECHNIQUE: Multiple axial, sagittal and coronal CT images were obtained through the abdomen and pelvi; s after administration of oral and intravenous contrast material.; COMMENTS:; The liver is of uniform attenuation without mass or defect. There is no intra or extrahepatic biliary; ductal dilatation. The spleen is normal. The gallbladder is within normal limits. The pancreas is of; normal contour and attenuation characteristics. There is no evidence of adrenal mass.; Both kidneys demonstrate prompt and equal nephrograms. The kidneys are normal in size, shape and conf; iguration. There is no evidence of renal or ureteral mass. No renal or ureteral calculi are identifie; d. There is no hydroureter or hydronephrosis.; No evidence for appendicitis. There is no bowel wall thickening. No evidence for small or large araceli; l obstruction. There is no evidence of abdominal ascites or lymphadenopathy.; There is no evidence of intrinsic or extrinsic bladder mass. There is no pelvic ascites or lymphadeno; agustín. S/p hysterectomy.; Images of the lung bases show no evidence of pleural or parenchymal mass. There are no pleural effusi; ons.; The bony structures are free of lytic or blastic lesions. Multilev; IMPRESSION:; No evidence of acute abdominal or pelvic pathology.; Thank you for your kind referral of this patient.; ; Outcome: 16:03 Ultrasound Study completed. kr3 20:14 Discharge ordered by Provider. br1 21:00 Discharge Assessment: Patient awake, alert and oriented x 3. No cognitive and/or jp6 functional deficits noted. Patient verbalized understanding of disposition instructions. patient administered narcotics - yes. Pt provided with safe discharge. The following High Risk Discharge criteria are identified: None. Discharged to home ambulatory. Condition: good Condition: improved. Discharge instructions given to patient, Instructed on discharge instructions, follow up and referral plans. medication usage, Demonstrated understanding of instructions, medications, Pt was receptive of discharge instructions/ teaching. Prescriptions given X 2. Property sent home with patient. 21:02 Patient left the ED. jp6 Signatures: Dispatcher [employer] EDMS Karmen Thurston, Reg Reg Danielle Yoon,RN RN ck1 Elsi Durham,RN RN kr3 Marsha Francisco Brian, MD MD br1 Kayley Williamson,RN RN ld5 Arielle Coffman PCA PCA elp Palmer, Jessica,RN RN jp6 Corrections: (The following items were deleted from the chart) 15:03 14:34 Allergies: no known allergies; ck1 kr3 Chart Complete MTDD
--- NOTE | 2016-10-21 22:03 | EDDOCDS ---
Physician Documentation [facility] Name: Ashlee Christine Age: 46 yrs Sex: Female : 1970 Arrival Date: 10/19/2016 Time: 14:25 Bed 10 Private MD: Sil Disposition: 10/19 20:18 A printed prescription was provided to the patient due to temporary technical issues br1 which prevented electronic transmission. Disposition: 10/19/16 20:14 Discharged to Home/Self Care. Impression: Generalized abdominal pain. - Condition is Stable. - Discharge Instructions: Abdominal Pain, Adult. - Prescriptions for Percocet 5- 325 mg Oral Tablet - take 1 tablet by ORAL route every 6 hours As needed MDD: 4 tabs; 10 tablet. ZOFRAN ODT 4 mg - dissolve 1 tablet by ORAL route 4 times per day As needed do not chew, do not swallow whole; 10 tablet. - Medication Reconciliation, Local Pharmacy Hours form. - Follow up: Sil; When: 2 - 3 days; Reason: Recheck today's complaints. Follow up: Edu Fernando; When: 2 - 3 days; Reason: Recheck today's complaints. - Problem is new. - Symptoms are unchanged. - Notes: You were seen in the ED for abdominal pain. Bloodwork along with ultrasound and CT scan of the abdomen showed no clear cause of the symptoms. Ultrasound did show a renal cyst that will need recheck and further evaluation with your primary doctor. You may take Percocet as needed for pain (no driving or operating machinery while on this medicine). You may take Zofran as needed for nausea. Call your primary doctor and your GI doctor in the morning to discuss today's ED visit and arrange to be seen.
Return to the ED for any return or worsening of pain, fever, inability to tolerate oral foods or liquids or any other concerns. Historical: - Allergies: Morphine (Vomit); - Home Meds: 1. Topamax 100 mg Oral tab daily 2. Nortriptyline Unknown Oral once daily 3. Singulair 10 mg Oral tab 1 tab once daily 4. Phenobarbital Oral once daily 5. Shaista 180 mg oral tab once daily 6. omeprazole 40 mg Oral cpDR 1 cap 2 times per day 7. cefdinir 300 mg Oral cap 1 cap every 12 hours 8. Vicodin ES 7.5-300 mg Oral tab PRN (Last dose: Unknown) - PMHx: GERD; Seasonal Allergies; gallbladder disease; - PSHx: back surgery; partial hysterectomy; Laparoscopy; - Social history: Smoking status: Patient states former smoker of tobacco. No barriers to communication noted, The patient speaks fluent Albanian, Speaks appropriately for age. - Family history: Not pertinent. - : The pt / caregiver states he / she is not on anticoagulants. Home medication list is obtained from the patient. - Exposure Risk Screening:: None identified. 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 1 in. (154.94 cm) (R); Pain 8/10; 17:53 BP 106 / 62; Pulse 62; Resp 16; Pulse Ox 100% on R/A; kr3 21:00 BP 118 / 73; Pulse 68; Resp 16; Temp 96.6; Pulse Ox 95% on R/A; Pain 2/10; jp6 14:27 Body Mass Index 28.34 (68.04 kg, 154.94 cm) elp MDM: 14:47 IV Saline Lock ordered. br1 14:47 NS 0.9% 1000 ml IV at 150 mL/hr continuous ordered. br1 14:47 morphine 4 mg IVP once ordered. br1 14:47 Ondansetron 4 mg IVP once ordered. br1 14:48 CBC with Diff Ordered. EDMS 14:48 BMP Ordered. EDMS 14:48 Liver Profile Ordered. EDMS 14:48 Lipase Ordered. EDMS 14:49 Ultrasound Abd Limited Ordered. EDMS 14:49 NOTHING BY MOUTH+DIET ordered. EDMS 15:24 CBC with Diff Reviewed. br1 15:35 BMP Reviewed. br1 15:35 Liver Profile Reviewed. br1 15:35 Lipase Reviewed. br1 17:05 Financial registration complete. zo 17:08 [facility] Payment Agreement was scanned into [employer] and attached to record. zo 17:13 CT ABD & PELVIS: IV and Oral Contrast Ordered. EDMS 17:21 Diatrizoate Meglumine & Sodium Liquid 10 ml PO once; mix in 290cc of water give at 5:35 kr3 ordered. 17:21 Diatrizoate Meglumine & Sodium Liquid 10 ml PO once; mix in 290cc of water give at 6:05 kr3 ordered. 10/20 09:09 T-Sheet-- Draft Copy was scanned into [employer] and attached to record. gb 09:10 Radiology Report was scanned into [employer] and attached to record. gb Administered Medications: 10/19 15:01 Not Given (Patient Refused): morphine 4 mg IVP once br1 15:05 Drug: Ondansetron 4 mg [ondansetron HCl 2 mg/mL intravenous solution (2 mL)] Route: ld5 IVP; Site: left antecubital; 15:27 Follow up: Response: Nausea is decreased kr3 15:13 Drug: NS 0.9% 1000 ml [sodium chloride 0.9 % intravenous solution] Route: IV; Rate: 150 ld5 mL/hr; Site: left antecubital; 17:37 Drug: Diatrizoate Meglumine & Sodium 10 ml [diatrizoate meglumine and diat.sodium 66 kr3 %-10 % oral solution (10 mL)] Route: PO; 18:05 Drug: Diatrizoate Meglumine & Sodium 10 ml [diatrizoate meglumine and diat.sodium 66 kr3 %-10 % oral solution (10 mL)] Route: PO; Signatures: Dispatcher [employer] EDMS Karmen Thurston, Reg Reg gb Danielle CopeRN RN ck1 Elsi Durham RN RN kr3 Marsha Francisco Brian, MD MD br1 Jeannie Thacker RN RN jp6 Kayley Williamson RN ld5 The chart was reviewed and I authenticate all verbal orders and agree with the evaluation and treatment provided.Corrections: (The following items were deleted from the chart) 15:03 14:34 Allergies: no known allergies; ck1 kr3 Attachments: 17:08 [facility] Payment Agreement zo 10/20 09:09 T-Sheet-- Draft Copy gb Chart Complete MTDD
--- NOTE | 2016-10-21 22:03 | EDDOCDS ---
Physician Documentation [facility] Name: Ashlee Christine Age: 46 yrs Sex: Female : 1970 Arrival Date: 10/19/2016 Time: 14:25 Bed 10 Private MD: Sil Disposition: 10/19 20:18 A printed prescription was provided to the patient due to temporary technical issues br1 which prevented electronic transmission. Disposition: 10/19/16 20:14 Discharged to Home/Self Care. Impression: Generalized abdominal pain. - Condition is Stable. - Discharge Instructions: Abdominal Pain, Adult. - Prescriptions for Percocet 5- 325 mg Oral Tablet - take 1 tablet by ORAL route every 6 hours As needed MDD: 4 tabs; 10 tablet. ZOFRAN ODT 4 mg - dissolve 1 tablet by ORAL route 4 times per day As needed do not chew, do not swallow whole; 10 tablet. - Medication Reconciliation, Local Pharmacy Hours form. - Follow up: Sil; When: 2 - 3 days; Reason: Recheck today's complaints. Follow up: Edu Fernando; When: 2 - 3 days; Reason: Recheck today's complaints. - Problem is new. - Symptoms are unchanged. - Notes: You were seen in the ED for abdominal pain. Bloodwork along with ultrasound and CT scan of the abdomen showed no clear cause of the symptoms. Ultrasound did show a renal cyst that will need recheck and further evaluation with your primary doctor. You may take Percocet as needed for pain (no driving or operating machinery while on this medicine). You may take Zofran as needed for nausea. Call your primary doctor and your GI doctor in the morning to discuss today's ED visit and arrange to be seen.
Return to the ED for any return or worsening of pain, fever, inability to tolerate oral foods or liquids or any other concerns. Historical: - Allergies: Morphine (Vomit); - Home Meds: 1. Topamax 100 mg Oral tab daily 2. Nortriptyline Unknown Oral once daily 3. Singulair 10 mg Oral tab 1 tab once daily 4. Phenobarbital Oral once daily 5. Shaista 180 mg oral tab once daily 6. omeprazole 40 mg Oral cpDR 1 cap 2 times per day 7. cefdinir 300 mg Oral cap 1 cap every 12 hours 8. Vicodin ES 7.5-300 mg Oral tab PRN (Last dose: Unknown) - PMHx: GERD; Seasonal Allergies; gallbladder disease; - PSHx: back surgery; partial hysterectomy; Laparoscopy; - Social history: Smoking status: Patient states former smoker of tobacco. No barriers to communication noted, The patient speaks fluent Kinyarwanda, Speaks appropriately for age. - Family history: Not pertinent. - : The pt / caregiver states he / she is not on anticoagulants. Home medication list is obtained from the patient. - Exposure Risk Screening:: None identified. SNAILER: 14:35 LMP N/A - partial hysterectomy ck1 Vital Signs: 14:27 BP 135 / 82; Pulse 80; Resp 18; Temp 97.4(O); Pulse Ox 100% on R/A; Weight 68.04 kg / elp 150 lbs (R); Height 5 ft. 1 in. (154.94 cm) (R); Pain 8/10; 17:53 BP 106 / 62; Pulse 62; Resp 16; Pulse Ox 100% on R/A; kr3 21:00 BP 118 / 73; Pulse 68; Resp 16; Temp 96.6; Pulse Ox 95% on R/A; Pain 2/10; jp6 14:27 Body Mass Index 28.34 (68.04 kg, 154.94 cm) elp MDM: 14:47 IV Saline Lock ordered. br1 14:47 NS 0.9% 1000 ml IV at 150 mL/hr continuous ordered. br1 14:47 morphine 4 mg IVP once ordered. br1 14:47 Ondansetron 4 mg IVP once ordered. br1 14:48 CBC with Diff Ordered. EDMS 14:48 BMP Ordered. EDMS 14:48 Liver Profile Ordered. EDMS 14:48 Lipase Ordered. EDMS 14:49 Ultrasound Abd Limited Ordered. EDMS 14:49 NOTHING BY MOUTH+DIET ordered. EDMS 15:24 CBC with Diff Reviewed. br1 15:35 BMP Reviewed. br1 15:35 Liver Profile Reviewed. br1 15:35 Lipase Reviewed. br1 17:05 Financial registration complete. zo 17:08 [facility] Payment Agreement was scanned into [employer] and attached to record. zo 17:13 CT ABD & PELVIS: IV and Oral Contrast Ordered. EDMS 17:21 Diatrizoate Meglumine & Sodium Liquid 10 ml PO once; mix in 290cc of water give at 5:35 kr3 ordered. 17:21 Diatrizoate Meglumine & Sodium Liquid 10 ml PO once; mix in 290cc of water give at 6:05 kr3 ordered. 10/20 09:09 T-Sheet-- Draft Copy was scanned into [employer] and attached to record. gb 09:10 Radiology Report was scanned into [employer] and attached to record. gb Administered Medications: 10/19 15:01 Not Given (Patient Refused): morphine 4 mg IVP once br1 15:05 Drug: Ondansetron 4 mg [ondansetron HCl 2 mg/mL intravenous solution (2 mL)] Route: ld5 IVP; Site: left antecubital; 15:27 Follow up: Response: Nausea is decreased kr3 15:13 Drug: NS 0.9% 1000 ml [sodium chloride 0.9 % intravenous solution] Route: IV; Rate: 150 ld5 mL/hr; Site: left antecubital; 17:37 Drug: Diatrizoate Meglumine & Sodium 10 ml [diatrizoate meglumine and diat.sodium 66 kr3 %-10 % oral solution (10 mL)] Route: PO; 18:05 Drug: Diatrizoate Meglumine & Sodium 10 ml [diatrizoate meglumine and diat.sodium 66 kr3 %-10 % oral solution (10 mL)] Route: PO; Signatures: Dispatcher MedHoG2 Crowd EDMS Karmen Thurston, Reg Reg gb Danielle CopeRN RN ck1 Elsi Durham RN RN kr3 Marsha Francisco Brian, MD MD br1 Jeannie Thacker RN RN jp6 Kayley Williamson RN ld5 The chart was reviewed and I authenticate all verbal orders and agree with the evaluation and treatment provided.Corrections: (The following items were deleted from the chart) 15:03 14:34 Allergies: no known allergies; ck1 kr3 Attachments: 17:08 [facility] Payment Agreement zo 10/20 09:09 T-Sheet-- Draft Copy gb Chart Complete MTDD
== END 2016-10-19 21:02 | disposition home or self-care (01) ==
LOC: M ED 14:25
DX: R10.84 Generalized abdominal pain (principal); K21.9 Gastro-esophageal reflux disease without esophagitis; K82.9 Disease of gallbladder, unspecified; J30.9 Allergic rhinitis, unspecified; Z90.79 Acquired absence of other genital organ(s); Z87.891 Personal history of nicotine dependence; Z79.899 Other long term (current) drug therapy; Z88.5 Allergy status to narcotic agent
CPT/HCPCS: 74177; 76705; 80048; 80076; 83690; 85025; 96374; 99284; J2405; Q9963; Q9967

== ENCOUNTER → 2016-11-07 | Outpatient (CLI) | payer BC ==
--- NOTE | 2016-11-10 05:47 | SLEEPHOME ---
DATE OF PROCEDURE: 11/07/2016 ORDERED BY: Dya Neff NP Diagnostic home sleep testing was performed due to concern for the obstructive sleep apnea syndrome. For testing, a NOX-T3 respiratory monitoring device. Continuous record was made of pulse, oxygen saturation, airflow, chest and abdominal strain, and body position. 10 hours and 59 minutes of data were reviewed. 7 hours and 38 minutes were marked as time in bed. During the interval marked time in bed, there were 25 respiratory events identified of 10 seconds in duration or greater. The events were primarily obstructive. Baseline heart 72 beats per minute. Heart rate ranged 555-109. Baseline saturation 96%. Lowest oxygen saturation 89%. Testing was performed in both the supine and non-supine positions. The events were more frequent and more significant in the supine posture. IMPRESSION: Abnormal home sleep testing with repetitive respiratory events and oxygen desaturations to 89% with a respiratory event index of 3.3 is consistent with obstructive sleep apnea syndrome. RECOMMENDATION: Sleep position retraining for avoidance of the supine posture may be sufficient to address the patient's symptoms. If symptoms persist, formal in-laboratory testing has been found more sensitive for identifying mild disease.
== END ==
LOC: M SLEEP HO 11:25
PROVIDERS: ATTEND Nurse Practitioner Adult Health
DX: G47.30 Sleep apnea, unspecified (principal)

== ENCOUNTER → 2016-12-07 | Outpatient (CLI) | payer BC ==
[~2016-12-07] VITALS: Ht 154.9 cm; Wt 68.0 kg
[~2016-12-07] MED LIST changes: +DOXY-278 PO; +FENO48TA2 PO; +LIDOCAINE 2% INJ 100 MG/5 ML SDV (FOR ANES.) As Ordered ONE; +NORT50CA PO; +NS 1,000 ML IV SCH; +PROPOFOL 200 MG/20 ML VIAL As Ordered ONE; +PROT1TAB2 PO; +SING10TA32 PO; +TOPA100T8 PO
--- NOTE | 2016-12-07 10:00 | ROOR ---
Patient Name: Ashlee hCristine Procedure Date: 12/07/2016 9:44 AM Date of : 1970 Age: 46 Room: [facility] Gender: Female Note Status: Finalized Procedure: Upper GI endoscopy Indications: Epigastric abdominal pain Providers: Cholo Gordillo Jr, MD Referring MD: Jackie BARBER DO Requesting Provider: Medicines: Propofol per Anesthesia Complications: No immediate complications. Procedure: Pre-Anesthesia Assessment: - Prior to the procedure, a History and Physical was performed, and patient medications and allergies were reviewed. The patient is competent. The risks and benefits of the procedure and the sedation options and risks were discussed with the patient. All questions were answered and informed consent was obtained. Patient identification and proposed procedure were verified by the physician and the nurse in the pre-procedure area and in the procedure room. Mental Status Examination: alert and oriented. Airway Examination: normal oropharyngeal airway and neck mobility. Respiratory Examination: clear to auscultation. CV Examination: normal. ASA Grade Assessment: II - A patient with mild systemic disease. After reviewing the risks and benefits, the patient was deemed in satisfactory condition to undergo the procedure. The anesthesia plan was to use moderate sedation / analgesia (conscious sedation). Immediately prior to administration of medications, the patient was re-assessed for adequacy to receive sedatives. The heart rate, respiratory rate, oxygen saturations, blood pressure, adequacy of pulmonary ventilation, and response to care were monitored throughout the procedure. The physical status of the patient was re-assessed after the procedure. The Endoscope was introduced through the mouth, and advanced to the second part of duodenum. The upper GI endoscopy was accomplished without difficulty. The patient tolerated the procedure well. Findings: The upper third of the esophagus, middle third of the esophagus and lower third of the esophagus were normal. The gastroesophageal junction, cardia, gastric fundus and gastric body were normal. Patchy moderate inflammation characterized by congestion (edema), erythema and friability was found in the gastric antrum and in the prepyloric region of the stomach. Biopsies were taken with a cold forceps for histology. The duodenal bulb, first portion of the duodenum and second portion of the duodenum were normal. Biopsies for histology were taken with a cold forceps for evaluation of celiac disease. Impression: - Normal upper third of esophagus, middle third of esophagus and lower third of esophagus. - Normal gastroesophageal junction, cardia, gastric fundus and gastric body. - Gastritis. Biopsied. - Normal duodenal bulb, first portion of the duodenum and second portion of the duodenum. Biopsied. Recommendation: - Discharge patient to home (ambulatory). - Return to my office in 2 weeks. Cholo Gordillo MD Cholo Gordillo Jr, MD 12/07/2016 10:00:06 AM This report has been signed electronically. Number of Addenda: 0 Note Initiated On: 12/07/2016 9:44 AM Estimated Blood Loss: Estimated blood loss: none.
[2016-12-07 10:26] VITALS: BP 120/66
== END ==
LOC: M OPP 08:48
PROVIDERS: ATTEND Surgery
DX: K29.80 Duodenitis without bleeding (principal); R10.13 Epigastric pain; Z91.09 Other allergy status, other than to drugs and biological substances; Z88.5 Allergy status to narcotic agent; Z88.6 Allergy status to analgesic agent

== ENCOUNTER → 2017-01-18 | Outpatient (REF) | payer BC ==
[~2017-01-18] MED LIST changes: -LIDOCAINE 2% INJ 100 MG/5 ML SDV (FOR ANES.) As Ordered ONE; -NS 1,000 ML IV SCH; -PROPOFOL 200 MG/20 ML VIAL As Ordered ONE
== END ==
LOC: M LAB REF 14:35
PROVIDERS: ATTEND Physician Assistant
DX: R19.7 Diarrhea, unspecified (principal)

== ENCOUNTER → 2017-01-30 | Outpatient (REF) | payer BC | LOC: M LAB REF 09:10 | PROVIDERS: ATTEND Physician Assistant | DX: A02.0 Salmonella enteritis (principal) ==

== ENCOUNTER → 2017-01-31 | Outpatient (REF) | payer BC | LOC: M LAB REF 09:15 | PROVIDERS: ATTEND Physician Assistant | DX: A02.0 Salmonella enteritis (principal) ==

== ENCOUNTER → 2017-02-06 | Outpatient (REF) | payer BC | LOC: M LAB REF 09:09 | PROVIDERS: ATTEND Physician Assistant | DX: A02.0 Salmonella enteritis (principal) ==

== ENCOUNTER → 2017-06-28 | Outpatient (CLI) | payer BC ==
[~2017-06-28] MED LIST changes: +TOPA100T12 PO; -TOPA100T8 PO
--- NOTE | 2017-06-28 14:27 | REPMRS ---
Patient History The patient states she had a clinical breast exam in June 2017. Patient is nulliparous. Family history of colorectal cancer in maternal grandmother at age 50 or over. Taking estrogen for 1 year 4 months. Digital Mammo Diagnostic Bilateral: Left Breast - June 28, 2017 - Exam #: [id number] CC and MLO view(s) were taken of the left breast. Technologist: Lara Carranza, Technologist Prior study comparison: December 29, 2015, digital woman screen mammo, performed at [facility]. July 29, 2014, digital woman screen mammo, performed at [facility]. April 28, 2011, bilateral digital mammo screening bilat, performed at [facility]. FINDINGS: There are scattered fibroglandular densities. There has been no change in the appearance of the mammogram from the prior studies. There is a mild amount of scattered fibroglandular density which is fairly symmetric. There is no interval development of dominant mass, architectural distortion, or clustered microcalcification suggestive of malignancy. ASSESSMENT: BI-RADS/ACR category 1 mammogram. Negative. Recommendation Routine screening mammogram in 1 year (for women over age 40). This mammogram was interpreted with the aid of an FDA-approved computer-aided dectection system. Electronically Signed By: Yovany Ghosh MD 06/28/17 0967
== END ==
LOC: M RAD 13:50
PROVIDERS: ATTEND Nurse Practitioner Women's Health
DX: N64.4 Mastodynia (principal); Z92.23 Personal history of estrogen therapy

== ENCOUNTER → 2017-09-04 | Outpatient (REF) | payer BC | LOC: M SFHCWAGY 11:58 | PROVIDERS: ATTEND Nurse Practitioner Women's Health | DX: Z11.3 Encounter for screening for infections with a predominantly sexual mode of transmission (principal) ==

== ENCOUNTER → 2017-09-24 | Outpatient (CLI) | payer BC ==
[2017-09-24 21:49] LABS: BASO # 0.1 10^3/uL (0.0-0.2); BASO % 1.1 % (0.0-1.0); EOS # 0.2 10^3/uL (0.0-0.50); EOS % 2.7 % (0.0-3.0); HEMOGLOBIN 14.1 g/dl (12.0-16.0); IMMATURE GRANULOCYTE % 0.3 % (0-0); LYMPH # 3.1 10^3/uL (1.5-4.5); LYMPH % 39.5 % (24.0-44.0); MEAN CORPUSCULAR HEMOGLOBIN 28.6 pg (27.0-33.0); MEAN CORPUSCULAR HGB CONC 33.6 g/dl (32.0-36.5); MEAN CORPUSCULAR VOLUME 85.2 fl (80.0-96.0); MONO # 0.6 10^3/uL (0.0-0.8); MONO % 6.9 % (0.0-5.0); NEUTROPHILS # 3.9 10^3/uL (1.8-7.7); NEUTROPHILS % 49.5 % (36.0-66.0); PLATELET COUNT, AUTOMATED 361 10^3/uL (150-450); RED BLOOD COUNT 4.93 10^6/uL (4.00-5.40); RED CELL DISTRIBUTION WIDTH 12.5 % (11.5-14.5); WHITE BLOOD COUNT 7.9 10^3/uL (4.0-10.0)
[2017-09-25 08:18] LABS: CONTROL LINE MONO INT CTR LINE PRESENT; MONO SCRN NEGATIVE (NEGATIVE)
[2017-09-27 00:06] LABS: EBV VIRAL CAPSID AG IgM <36.0 U/mL (0.0-35.9)
[2017-09-27 00:06] LABS: EBV VIRAL CAPSID AG IgG 91.2 U/mL (0.0-17.9)
== END ==
LOC: M ADAMS 17:27
DX: J02.9 Acute pharyngitis, unspecified (principal); R53.83 Other fatigue
CPT/HCPCS: 86665

== ENCOUNTER → 2017-10-11 | Outpatient (REF) | payer BC ==
[2017-10-11 12:16] LABS: HEMATOCRIT 39.4 % (36.0-47.0); HEMOGLOBIN 12.9 g/dl (12.0-16.0); MEAN CORPUSCULAR HEMOGLOBIN 28.4 pg (27.0-33.0); MEAN CORPUSCULAR HGB CONC 32.7 g/dl (32.0-36.5); MEAN CORPUSCULAR VOLUME 86.8 fl (80.0-96.0); PLATELET COUNT, AUTOMATED 296 10^3/uL (150-450); RED BLOOD COUNT 4.54 10^6/uL (4.00-5.40); RED CELL DISTRIBUTION WIDTH 12.5 % (11.5-14.5)
[2017-10-11 12:42] LABS: ALBUMIN/GLOBULIN RATIO 1.43 (1.00-1.93); ALKALINE PHOSPHATASE 43 U/L (45-117); ALT/SGPT 21 U/L (12-78); ANION GAP 8 MEQ/L (8-16); AST/SGOT 13 U/L (7-37); BILIRUBIN,TOTAL 0.3 MG/DL (0.2-1.0); BLOOD UREA NITROGEN 19 MG/DL (7-18); CALCIUM LEVEL 8.7 MG/DL (8.5-10.1); CARBON DIOXIDE LEVEL 24 MEQ/L (21-32); CHLORIDE LEVEL 111 MEQ/L (98-107); CHOLESTEROL LEVEL 215 MG/DL (<200); CHOLESTEROL RISK RATIO 3.307 (<5); CREATININE FOR GFR 1.08 MG/DL (0.55-1.02); FREE T4 0.87 NG/DL (0.76-1.46); GLOMERULAR FILTRATION RATE 57.4 (>58); GLUCOSE, FASTING 109 MG/DL (70-100); HDL CHOLESTEROL 65 MG/DL (>40); LDL CHOLESTEROL 121.6 MG/DL (<100); NON-HDL-C 150 MG/DL; POTASSIUM SERUM 4.6 MEQ/L (3.5-5.1); SODIUM LEVEL 143 MEQ/L (136-145); TOTAL PROTEIN 6.8 GM/DL (6.4-8.2); TRIGLYCERIDES LEVEL 142 MG/DL (<150)
== END ==
LOC: M LABDRAW1 10:47
DX: Z13.220 Encounter for screening for lipoid disorders (principal); R19.7 Diarrhea, unspecified; Z13.29 Encounter for screening for other suspected endocrine disorder

== ENCOUNTER → 2018-01-17 | Outpatient (REF) | payer BC | LOC: M LAB REF 15:24 | DX: A09 Infectious gastroenteritis and colitis, unspecified (principal) | CPT/HCPCS: 87507 ==

== ENCOUNTER → 2018-02-12 | Outpatient (CLI) | payer BC ==
[2018-02-12 19:06] LABS: BASO # 0.1 10^3/uL (0.0-0.2); BASO % 0.8 % (0.0-1.0); EOS # 0.1 10^3/uL (0.0-0.50); EOS % 1.3 % (0.0-3.0); HEMATOCRIT 42.7 % (36.0-47.0); IMMATURE GRANULOCYTE % 0.3 % (0-3.0); LYMPH # 3.6 10^3/uL (1.5-4.5); LYMPH % 33.9 % (24.0-44.0); MEAN CORPUSCULAR HEMOGLOBIN 28.2 pg (27.0-33.0); MEAN CORPUSCULAR HGB CONC 32.8 g/dl (32.0-36.5); MEAN CORPUSCULAR VOLUME 86.1 fl (80.0-96.0); MONO # 0.6 10^3/uL (0.0-0.8); MONO % 5.7 % (0.0-5.0); NEUTROPHILS # 6.2 10^3/uL (1.8-7.7); PLATELET COUNT, AUTOMATED 378 10^3/uL (150-450); RED BLOOD COUNT 4.96 10^6/uL (4.00-5.40); RED CELL DISTRIBUTION WIDTH 13.2 % (11.5-14.5); WHITE BLOOD COUNT 10.7 10^3/uL (4.0-10.0)
[2018-02-12 19:47] LABS: TOTAL 25(OH) VITAMIN D 23.1 NG/ML (30.0-100.0)
[2018-02-12 19:51] LABS: ALBUMIN 4.4 GM/DL (3.2-5.2); ALBUMIN/GLOBULIN RATIO 1.42 (1.00-1.93); ALKALINE PHOSPHATASE 49 U/L (45-117); ALT/SGPT 44 U/L (12-78); ANION GAP 9 MEQ/L (8-16); AST/SGOT 27 U/L (7-37); BILIRUBIN,TOTAL 0.4 MG/DL (0.2-1.0); BLOOD UREA NITROGEN 20 MG/DL (7-18); CARBON DIOXIDE LEVEL 24 MEQ/L (21-32); CHLORIDE LEVEL 109 MEQ/L (98-107); CREATININE FOR GFR 1.17 MG/DL (0.55-1.30); FREE T4 0.94 NG/DL (0.76-1.46); GLOMERULAR FILTRATION RATE 52.3 (>58); GLUCOSE, FASTING 87 MG/DL (70-100); POTASSIUM SERUM 4.3 MEQ/L (3.5-5.1); SODIUM LEVEL 142 MEQ/L (136-145); TOTAL PROTEIN 7.5 GM/DL (6.4-8.2)
[2018-02-15 03:02] LABS: Lyme Disease IgG/IgM Antibodie <0.91 ISR (0.00-0.90); Lyme Disease IgM Ab Quantitati <0.80 index (0.00-0.79)
== END ==
LOC: M SMT 15:42
DX: R53.83 Other fatigue (principal)

== ENCOUNTER → 2018-02-25 | Outpatient (REF) | payer BC ==
[2018-02-25 13:45] LABS: APPEARANCE, URINE CLOUDY (CLEAR); BACTERIA, URINE AUTO 1+ (NEGATIVE); BILIRUBIN, URINE AUTO NEGATIVE (NEGATIVE); BLOOD, URINE BLOOD NEGATIVE (NEGATIVE); COLOR, URINE AMBER (YELLOW); GLUCOSE, URINE (UA) AUTO NEGATIVE (NEGATIVE); KETONE, URINE AUTO NEGATIVE (NEGATIVE); LEUKOCYTE ESTERASE, URINE AUTO TRACE (NEGATIVE); MUCUS, URINE SMALL (NEGATIVE); NITRITE, URINE AUTO NEGATIVE (NEGATIVE); PROTEIN, URINE AUTO NEGATIVE (NEGATIVE); RBC, URINE AUTO 0 /HPF (0-3); SPECIFIC GRAVITY URINE AUTO 1.006 (1.002-1.035); SQUAMOUS EPITHELIAL CELL UR AU 1 /HPF (0-6); UROBILINOGEN, URINE AUTO 0.2 mg/dL (0.0-2.0); WBC, URINE AUTO 3 /HPF (0-3)
== END ==
LOC: M LAB REF 13:11
DX: N39.0 Urinary tract infection, site not specified (principal)
CPT/HCPCS: 81001

== ENCOUNTER 2018-05-30 08:32 | Day surgery (SDC) | payer BC ==
[~2018-05-30 08:32] MED LIST changes: -ALLE180T33 PO; -BIAX500T PO; -BIOT300T PO; -DOXY-278 PO; -FENO48TA2 PO; -FLUTISP; +LIDOCAINE 2% INJ 100 MG/5 ML SDV (FOR ANES.) As Ordered; -NORT50CA PO; -PERCOCET PO; +PROPOFOL 200 MG/20 ML VIAL As Ordered; -PROT1TAB2 PO; -SING10TA32 PO; -SINGULAIR PO; -TOPA100T PO; -TOPA100T12 PO; -VICO7.5T11 PO; -VITA500019 PO; -ZANT150T PO; -[UNRECOGNIZED DRUG - OTHER] PO
[2018-05-30] MEDS: NS 1,000 ML IV (09:10)
== END 2018-05-30 10:33 | disposition home or self-care (01) ==
LOC: M OPP 08:32
DX: Z12.11 Encounter for screening for malignant neoplasm of colon (principal); D12.4 Benign neoplasm of descending colon; E78.5 Hyperlipidemia, unspecified; K21.9 Gastro-esophageal reflux disease without esophagitis; R12 Heartburn; M19.90 Unspecified osteoarthritis, unspecified site; G43.909 Migraine, unspecified, not intractable, without status migrainosus; J45.909 Unspecified asthma, uncomplicated; G47.30 Sleep apnea, unspecified; G62.9 Polyneuropathy, unspecified; J32.9 Chronic sinusitis, unspecified; Z88.5 Allergy status to narcotic agent; Z88.8 Allergy status to other drugs, medicaments and biological substances; Z79.899 Other long term (current) drug therapy
CPT/HCPCS: 45380

== ENCOUNTER → 2018-08-27 | Outpatient (CLI) | payer BC ==
[2018-08-27 14:08] LABS: ANION GAP 7 MEQ/L (8-16); BLOOD UREA NITROGEN 27 MG/DL (7-18); CALCIUM LEVEL 8.8 MG/DL (8.5-10.1); CARBON DIOXIDE LEVEL 22 MEQ/L (21-32); CHLORIDE LEVEL 111 MEQ/L (98-107); CHOLESTEROL LEVEL 223 MG/DL (<200); CHOLESTEROL RISK RATIO 3.596 (<5); CREATININE FOR GFR 1.71 MG/DL (0.55-1.30); GLOMERULAR FILTRATION RATE 33.6 (>51); GLUCOSE, FASTING 114 MG/DL (70-100); HDL CHOLESTEROL 62 MG/DL (>40); LDL CHOLESTEROL 134 MG/DL (<100); NON-HDL-C 161 MG/DL; POTASSIUM SERUM 4.9 MEQ/L (3.5-5.1); SODIUM LEVEL 140 MEQ/L (136-145); TRIGLYCERIDES LEVEL 133 MG/DL (<150)
[2018-08-27 14:28] LABS: ESTIMATED AVERAGE GLUCOSE 131 MG/DL (60-110); HEMOGLOBIN A1c 6.2 %
== END ==
LOC: M SMT 08:12
DX: R73.01 Impaired fasting glucose (principal); E78.2 Mixed hyperlipidemia
CPT/HCPCS: 83036

== ENCOUNTER → 2018-11-21 | Outpatient (CLI) | payer BC ==
[~2018-11-21] MED LIST changes: +ALLE180T33 PO; +BIAX500T PO; +BIOT300T PO; +DOXY-350 PO; +FENO48TA2 PO; +FLUTISP; -LIDOCAINE 2% INJ 100 MG/5 ML SDV (FOR ANES.) As Ordered; +METH75TA; +MULT1TAB10 PO; +NORT50CA PO; +PERCOCET PO; -PROPOFOL 200 MG/20 ML VIAL As Ordered; +PROT1TAB2 PO; +SING10TA32 PO; +SINGULAIR PO; +TOPA100T PO; +TOPA100T12 PO; +VICO7.5T11 PO; +VITA200015 PO; +VITA400C7 PO; +VITA500019 PO; +VITA500046 PO; +ZANT150T PO; +[UNRECOGNIZED DRUG - OTHER] PO; +[UNRECOGNIZED DRUG - OTHER] PO
[2018-11-21 10:53] LABS: BASO # 0.1 10^3/uL (0.0-0.2); EOS # 0.3 10^3/uL (0.0-0.50); EOS % 2.6 % (0.0-3.0); HEMOGLOBIN 13.4 g/dl (12.0-15.5); LYMPH # 2.9 10^3/uL (1.5-4.5); LYMPH % 26.5 % (24.0-44.0); MEAN CORPUSCULAR HEMOGLOBIN 28.5 pg (27.0-33.0); MEAN CORPUSCULAR HGB CONC 33.5 g/dl (32.0-36.5); MEAN CORPUSCULAR VOLUME 84.9 fl (80.0-96.0); MONO # 0.7 10^3/uL (0.0-0.8); MONO % 6.9 % (0.0-5.0); NEUTROPHILS # 6.8 10^3/uL (1.8-7.7); NEUTROPHILS % 62.7 % (36.0-66.0); PLATELET COUNT, AUTOMATED 323 10^3/uL (150-450); RED BLOOD COUNT 4.71 10^6/uL (4.00-5.40); WHITE BLOOD COUNT 10.8 10^3/uL (4.0-10.0)
[2018-11-21 11:41] LABS: ALBUMIN 3.8 GM/DL (3.2-5.2); BILIRUBIN,TOTAL 0.6 MG/DL (0.2-1.0); CALCIUM LEVEL 8.4 MG/DL (8.5-10.1); CHOLESTEROL RISK RATIO 4.555 (<5); CREATININE FOR GFR 1.04 MG/DL (0.55-1.30); GLOMERULAR FILTRATION RATE 59.7 (>51); POTASSIUM SERUM 4.5 MEQ/L (3.5-5.1); THYROID STIMULATING HORMONE 2.62 uIU/ML (0.358-3.740); TOTAL 25(OH) VITAMIN D 24.9 NG/ML (30.0-100.0); TOTAL PROTEIN 6.6 GM/DL (6.4-8.2)
[2018-11-21 11:52] LABS: HEMOGLOBIN A1c 5.9 %
== END ==
LOC: M LAB 08:54
PROVIDERS: ATTEND Internal Medicine Cardiovascular Disease
DX: E78.1 Pure hyperglyceridemia (principal); E55.9 Vitamin D deficiency, unspecified; E78.00 Pure hypercholesterolemia, unspecified

== ENCOUNTER → 2018-11-21 | Outpatient (CLI) | payer BC ==
--- NOTE | 2018-11-21 16:24 | REPMRS ---
Patient History The patient states she had a clinical breast exam in 11/2018. Patient is nulliparous. Family history of colorectal cancer at age 50 or over in maternal grandmother, breast cancer at age 68 in paternal aunt. Taking estrogen for 3 years. 3D TOMOSYNTHESIS WAS PERFORMED. Digital Woman Screen Mammo: November 21, 2018 - Exam #: [id number] Bilateral CC and MLO view(s) were taken. Technologist: Loretta Baron, Technologist Prior study comparison: June 28, 2017, left breast digital mammo diagnostic bilateral, performed at [facility]. December 29, 2015, digital woman screen mammo performed at [facility]. FINDINGS: There are scattered fibroglandular densities. There has been no change in the appearance of the mammogram from the prior studies. There is a mild amount of residual fibroglandular tissue which is fairly symmetric. There is no interval development of dominant mass, architectural distortion, or clustered microcalcification suggestive of malignancy. Assessment: BI-RADS/ACR category 1 mammogram. Negative Mammogram. Recommendation Routine screening mammogram in 1 year (for women over age 40). This mammogram was interpreted with the aid of an FDA-approved computer-aided dectection system. Electronically Signed By: Daniel Ford MD 11/21/18 5939
== END ==
LOC: M WHC 14:08
PROVIDERS: ATTEND Nurse Practitioner Women's Health
DX: Z12.31 Encounter for screening mammogram for malignant neoplasm of breast (principal); Z80.3 Family history of malignant neoplasm of breast; Z80.0 Family history of malignant neoplasm of digestive organs

== ENCOUNTER → 2019-05-14 | Outpatient (CLI) | payer BC ==
[~2019-05-14] MED LIST changes: +FLUT1SPR2; -FLUTISP; +METH750T2; -METH75TA; +OXYC1TAB23 PO; -PERCOCET PO
[2019-05-14 16:24] LABS: HEMATOCRIT 38.5 % (36.0-47.0); HEMOGLOBIN 12.6 g/dl (12.0-15.5); MEAN CORPUSCULAR HEMOGLOBIN 28.6 pg (27.0-33.0); MEAN CORPUSCULAR HGB CONC 32.7 g/dl (32.0-36.5); MEAN CORPUSCULAR VOLUME 87.5 fl (80.0-96.0); PLATELET COUNT, AUTOMATED 360 10^3/uL (150-450)
[2019-05-14 16:52] LABS: ALT/SGPT 35 U/L (12-78); BILIRUBIN,DIRECT < 0.1 MG/DL (0.0-0.2); BILIRUBIN,TOTAL 0.4 MG/DL (0.2-1.0); BLOOD UREA NITROGEN 24 MG/DL (7-18); CALCIUM LEVEL 9.4 MG/DL (8.5-10.1); CARBON DIOXIDE LEVEL 29 MEQ/L (21-32); CHLORIDE LEVEL 102 MEQ/L (98-107); CREATININE FOR GFR 1.03 MG/DL (0.55-1.30); GLOMERULAR FILTRATION RATE > 60.0 (>51); GLUCOSE, FASTING 117 MG/DL (70-100); PHOSPHORUS LEVEL 3.4 MG/DL (2.5-4.9); SODIUM LEVEL 136 MEQ/L (136-145); TOTAL PROTEIN 6.8 GM/DL (6.4-8.2)
== END ==
LOC: M LAB 15:58
PROVIDERS: ATTEND Podiatrist Foot & Ankle Surgery
DX: B35.1 Tinea unguium (principal); Z79.899 Other long term (current) drug therapy

== ENCOUNTER → 2019-07-22 | Outpatient (REF) | payer BC ==
[~2019-07-22] MED LIST changes: +FENO48TA13 PO; -FENO48TA2 PO; +VICO7.5T12 PO
== END ==
LOC: M SFHCPLAZ 18:24
PROVIDERS: ATTEND Dermatology
DX: D48.9 Neoplasm of uncertain behavior, unspecified (principal)

== ENCOUNTER → 2019-07-31 | Outpatient (REF) | payer BC | LOC: M LAB REF 18:07 | PROVIDERS: ATTEND Dermatology | DX: L28.0 Lichen simplex chronicus (principal) ==

== ENCOUNTER 2019-08-12 07:39 | Emergency (ER) | payer BC ==
[~2019-08-12] VITALS: Ht 157.5 cm; Wt 73.0 kg
[2019-08-12] MEDS ORDERED: ONDANSETRON 4MG/2ML VIAL (J2405) IV ONE (08:15)
[2019-08-12 08:55] LABS: BASO % 0.4 % (0.0-1.0); EOS % 0.4 % (0.0-3.0); HEMATOCRIT 39.5 % (36.0-47.0); HEMOGLOBIN 13.2 g/dl (12.0-15.5); LYMPH # 1.1 10^3/uL (1.5-5.0); LYMPH % 11.1 % (24.0-44.0); MEAN CORPUSCULAR HEMOGLOBIN 28.6 pg (27.0-33.0); MEAN CORPUSCULAR HGB CONC 33.4 g/dl (32.0-36.5); MEAN CORPUSCULAR VOLUME 85.5 fl (80.0-96.0); MONO # 0.7 10^3/uL (0.0-0.8); MONO % 6.8 % (0.0-5.0); NEUTROPHILS # 7.7 10^3/uL (1.5-8.5); NEUTROPHILS % 81.1 % (36.0-66.0); PLATELET COUNT, AUTOMATED 274 10^3/uL (150-450); RED BLOOD COUNT 4.62 10^6/uL (4.00-5.40); WHITE BLOOD COUNT 9.5 10^3/uL (4.0-10.0)
--- NOTE | 2019-08-12 09:11 | REP ---
Clinical: Right upper quadrant pain with nausea and vomiting. Technique: Real time crisostomo scale ultrasound examination using curved array transducer. Findings: Liver and visualized pancreas are normal in contour, size, echogenicity without focal hepatic or pancreatic lesion identified. The gallbladder is normal and without gallstones, wall thickening, or pericholecystic fluid. No biliary ductal dilatation is appreciated and the common bile duct measures 4.4 mm diameter. The right kidney measures 11.4 x 3.8 x 5.6 cm and includes 8 mm lower pole cyst without hydronephrosis. No ascites in the visualized right upper quadrant. Impression: 1. Subcentimeter left renal cyst. 2. Otherwise grossly unremarkable examination. Electronically Signed by Ilan Manuel MD 08/12/2019 09:03 A
[2019-08-12 09:21] LABS: ALBUMIN 3.7 GM/DL (3.2-5.2); ALT/SGPT 33 U/L (12-78); BILIRUBIN,DIRECT < 0.1 MG/DL (0.0-0.2); BILIRUBIN,TOTAL 0.4 MG/DL (0.2-1.0); LIPASE 118 U/L (73-393); TOTAL PROTEIN 6.6 GM/DL (6.4-8.2)
[2019-08-12 10:33] LABS: INFLUENZA A AMPLIFICATION NEGATIVE (NEGATIVE); INFLUENZA B AMPLIFICATION NEGATIVE (NEGATIVE)
--- NOTE | 2019-08-12 12:09 | REP ---
Clinical: Abdominal pain and hematuria. Technique: Axial noncontrast images from the lung bases to the pubic symphysis with coronal and sagittal re-formations. Comparison: 10/19/2016. Findings: Small nonobstructing intrarenal calculi measure up to approximately 3 mm bilaterally. No hydroureteronephrosis, perinephric stranding, or obstructing ureteral calculi identified. The bladder is unremarkable. Liver, spleen, pancreas, gallbladder, and bilateral adrenal glands are normal for noncontrast evaluation. The enteric system is without obstruction or acute inflammatory process. Pelvis demonstrates normal bladder and prior hysterectomy. No ascites. No free air. No adenopathy. Abdominal aorta without aneurysm. Musculoskeletal structures without focal abnormality. Lung bases are clear. Impression: 1. Few small bilateral nonobstructing nephroliths up to 3 mm. No acute obstructive uropathy. Electronically Signed by Ilan Manuel MD 08/12/2019 12:00 P
[2019-08-12 12:14] VITALS: BP 114/65
[2019-08-12] MEDS ORDERED: ONDA4TAB6 PO (12:33)
--- NOTE | 2019-08-13 08:42 | ECGEPIP ---
[facility] - ED Test Date: 2019-08-12 Pat Name: NAYLA KIM Department: Room: - Gender: Female Nuclear Physician: BARBRA : 1970 Requested By: MIKA FAY Order Number: [id number] Reading MD: Bull Stern Measurements Intervals [place] Rate: 86 P: 58 ME: 167 QRS: 99 QRSD: 91 T: 74 QT: 373 QTc: 448 Interpretive Statements SINUS RHYTHM BORDERLINE RIGHT AXIS DEVIATION NO PRIORS FOR COMPARISON Electronically Signed on 08-13-2019 8:42:22 EST by Bull Stern
== END 2019-08-12 12:53 | disposition home or self-care (01) ==
LOC: M ED 07:39
DX: R11.2 Nausea with vomiting, unspecified (principal); R50.9 Fever, unspecified; Z20.828 Contact with and (suspected) exposure to other viral communicable diseases; E78.9 Disorder of lipoprotein metabolism, unspecified; Z79.899 Other long term (current) drug therapy; Z88.5 Allergy status to narcotic agent; J30.81 Allergic rhinitis due to animal (cat) (dog) hair and dander; J30.1 Allergic rhinitis due to pollen
CPT/HCPCS: 74176; 76705; 80047; 80076; 81001; 83690; 85025; 87502; 93005; 96374; 99284; J2405

== ENCOUNTER → 2019-10-28 | Outpatient (REF) | payer BC ==
[~2019-10-28] MED LIST changes: -FENO48TA13 PO; +FENO48TA7 PO; +ONDA4TAB6 PO
== END ==
LOC: M LAB REF 09:38
PROVIDERS: ATTEND Dermatology
DX: D48.9 Neoplasm of uncertain behavior, unspecified (principal)

== ENCOUNTER → 2019-10-30 | Outpatient (REF) | payer BC ==
[2019-10-31 14:07] LABS: FATS NEUTRAL Normal (.); FATS TOTAL Normal (.)
== END ==
LOC: M LAB REF 13:48
PROVIDERS: ATTEND Nurse Practitioner Adult Health
DX: R10.816 Epigastric abdominal tenderness (principal); R19.5 Other fecal abnormalities

== ENCOUNTER → 2020-03-11 | Outpatient (REF) | payer BC | LOC: M LAB REF 17:30 | PROVIDERS: ATTEND Physician Assistant | DX: D23.9 Other benign neoplasm of skin, unspecified (principal) ==

== ENCOUNTER → 2020-04-08 | Outpatient (CLI) | payer BC ==
--- NOTE | 2020-04-08 10:28 | REPMRS ---
Patient History The patient states she had a clinical breast exam in 03/2020. Patient is nulliparous. Family history of colorectal cancer at age 50 or over in maternal grandmother, breast cancer at age 68 in paternal aunt, breast cancer at age 46 in sister. Took estrogen for 3 years. Digital Woman Screen Mammo: April 08, 2020 - Exam #: [id number] Bilateral CC and MLO view(s) were taken. Technologist: Loretta Baron, Technologist Prior study comparison: November 21, 2018, bilateral digital woman screen mammo performed at [facility]. June 28, 2017, left breast digital mammo diagnostic bilateral, performed at [facility]. December 29, 2015, digital woman screen mammo performed at [facility]. FINDINGS: There are scattered fibroglandular densities. The Volpara volumetric breast density category is:B. There has been no change in the appearance of the mammogram from the prior studies. There is a mild amount of scattered fibroglandular density which is fairly symmetric. There is no interval development of dominant mass, architectural distortion, or grouped microcalcification suggestive of malignancy. 3-D tomosynthesis shows no additional findings. Assessment: BI-RADS/ACR category 1 mammogram. Negative Mammogram. Recommendation Breast MRI of both breasts in 6 months. Routine screening mammogram of both breasts in 1 year (for women over age 40). This patient's Lifetime Breast Cancer Risk is estimated at 23.8 %. Annual screening Breast MRI scanniing is recommended for patient's whose lifetime risk assessment is over 20%. This mammogram was interpreted with the aid of an FDA-approved computer-aided dectection system. Electronically Signed By: Yovany Ghosh MD 04/08/20 0447
== END ==
LOC: M WHC 09:20
PROVIDERS: ATTEND Nurse Practitioner Women's Health
DX: Z12.31 Encounter for screening mammogram for malignant neoplasm of breast (principal)

== ENCOUNTER → 2020-10-05 | Outpatient (CLI) | payer BC ==
[~2020-10-05] MED LIST changes: +METH-1165; -METH750T2
[2020-10-05 08:26] LABS: BASO # 0.1 10^3/uL (0.0-0.2); BASO % 1.5 % (0.0-1.0); EOS # 0.3 10^3/uL (0.0-0.5); EOS % 4.1 % (0.0-3.0); HEMATOCRIT 41.3 % (36.0-47.0); HEMOGLOBIN 13.3 g/dl (12.0-15.5); LYMPH # 2.2 10^3/uL (1.5-5.0); LYMPH % 33.9 % (24.0-44.0); MEAN CORPUSCULAR HGB CONC 32.2 g/dl (32.0-36.5); MEAN CORPUSCULAR VOLUME 86.9 fl (80.0-96.0); MONO # 0.6 10^3/uL (0.0-0.8); MONO % 8.3 % (0.0-5.0); NEUTROPHILS # 3.4 10^3/uL (1.5-8.5); PLATELET COUNT, AUTOMATED 352 10^3/uL (150-450); RED BLOOD COUNT 4.75 10^6/uL (4.00-5.40); WHITE BLOOD COUNT 6.6 10^3/uL (4.0-10.0)
[2020-10-05 09:24] LABS: ALBUMIN 3.9 GM/DL (3.2-5.2); ALT/SGPT 33 U/L (12-78); BILIRUBIN,TOTAL 0.3 MG/DL (0.2-1.0); BLOOD UREA NITROGEN 15 MG/DL (7-18); CALCIUM LEVEL 9.3 MG/DL (8.5-10.1); CARBON DIOXIDE LEVEL 25 MEQ/L (21-32); CHLORIDE LEVEL 107 MEQ/L (98-107); CHOLESTEROL LEVEL 240 MG/DL (<200); CHOLESTEROL RISK RATIO 3.809 (<5); CREATININE FOR GFR 0.96 MG/DL (0.55-1.30); GLOMERULAR FILTRATION RATE > 60.0 (>51); GLUCOSE, FASTING 110 MG/DL (70-100); HDL CHOLESTEROL 63 MG/DL (>40); LDL CHOLESTEROL 140 MG/DL (<100); NON-HDL-C 177 MG/DL; POTASSIUM SERUM 4.4 MEQ/L (3.5-5.1); SODIUM LEVEL 140 MEQ/L (136-145); TOTAL PROTEIN 6.4 GM/DL (6.4-8.2); TRIGLYCERIDES LEVEL 184 MG/DL (<150)
[2020-10-05 11:18] LABS: HEMOGLOBIN A1c 5.9 %
[2020-10-05 11:45] LABS: TOTAL 25(OH) VITAMIN D 34.4 NG/ML (30.0-100.0)
== END ==
LOC: M LAB 07:18
PROVIDERS: ATTEND Nurse Practitioner Adult Health
DX: R73.03 Prediabetes (principal)

== ENCOUNTER → 2020-10-05 | Outpatient (CLI) | payer BC ==
[2020-10-06 12:17] LABS: ANTINUCLEAR ANTIBODIES DIRECT Negative (Negative)
== END ==
LOC: M LAB 07:20
PROVIDERS: ATTEND Physician Assistant Medical
DX: M79.673 Pain in unspecified foot (principal)

== ENCOUNTER 2020-11-12 13:54 | Emergency (ER) | payer BC ==
[~2020-11-12] VITALS: Ht 157.5 cm; Wt 72.3 kg
[2020-11-12] MEDS ORDERED: SULF1TAB93 PO (14:01)
--- OUTSIDE RECORDS SUMMARY | 2020-11-12 14:29 | CCD | Continuity of Care Document ---
Author Author Ashlee COOK P.A.-C. Organization Unknown Address [address] [place] [id number] Phone [phone] Care Team Providers Care Principal Security Architect Name Role Phone SilPaulinoll DO AUTM Vilma Cruzn ANP-BC AUTM [phone] Problems Description No Information Available Social History Type Date Description Comments Sex Unknown Allergies, Adverse Reactions, Alerts Active Allergies Reaction Severity Comments Date Tramadol severe vomiting and dizziness 09/12/2010 Neurontin makes her depressed 06/01/20 11 Relpax palpitations 06/01/2011 Lyrica wt gain 12/11/2011 Flexeril severe fatigue 05/24/2012 Naproxen GI distress 02/19/2014 Medications Active Medications SIG Qnty Indications Ordering Provide r Date Imitrex 100mg Tablets 1 by mouth at onset of headache. may repeat once in 2 hours 9tabs G43.709 Andre Lawson M.D. 10/30/2019 Hydrocodone-Acetaminophen 7.5-325mg Tablets 1 po tid prn 21tabs Andre Paiz M.D. 07/23/2015 Sumatriptan Succinate 6mg/0.5ML So lution inject 1 dose subcutaneously at the onset of migraine, may repeat once in 2 hours 9units Andre Paiz M.D. 06/06/2013 Robaxin-750 750mg Tablets 1 po q 8 hrs 90tabs Andre Paiz M.D. 11/01/2012 Bilateral Wrist Splints. b/l CTS G56.01 Andre Paiz M.D. 03/28/2011 History Medications Xray Left Foot And Ankle left foot and ankle pain M79.672 Andre Paiz M.D. 05/31/2020 - 08/30/2020 Amoxicillin/Clavulanate Potassium 875-125mg Tablets 1 po bid 20tabs J01.90 Andre Paiz M.D. 05/31/2020 - 08/30/2020 Diflucan 150mg Tablets 1 po b id 2tabs Andre Paiz M.D. 05/31/2020 - 08/30/2020 Immunizations Description No Information Available Vital Signs Date Vital Result Comment 05/31/2020 5:33am BP Systolic 140 mmHg BP Diastolic 80 mmHg Heart Rate 76 /min Respiratory Rate 16 /min Weight 164.00 lb 10/30/2019 6:56am BP Systolic 110 mmHg BP Diastolic 78 mmHg Heart Rate 80 /min Respiratory Rate 16 /min Results Test Acquired Date Facility Test Result H/L Range Note Laboratory test finding 10/05/2020 [facility] Erythrocyte Sedimentation Rate 6 mm/hr Normal 0-30 Rheumatoid Factor Quant < 10.0 IU/mL Normal <15.0 Antinuclear Antibodies 10/05/2020 [facility] Antinuclear Antibodies Direct Negative Normal Negative 1 1 Performed at: RN - [facility] [address] [id number] [employer] Dispatcher: Geraldine Martinez MD, Phone: [phone] Procedures Date Code Description Status 06/22/2020 57391 MRI Spine Lumbar W/O Contrast Co mpleted 06/22/2020 08558 MRI Spine Lumbar W/O Contrast Co mpleted Medical Devices Description No Information Available Encounters Type Date Location Provider Dx Diagnosis Office Visit 08/30/2020 10:45a Main office - [place] Maryse singh, P.A.-C. M54.5 Low back pain M51.36 Other intervertebral disc de generation, lumbar region M54.18 Radiculopathy, sacral and sa crococcygeal region M54.2 Cervicalgia M79.7 Fibromyalgia G43.709 Chronic migraine w/o aura, n ot intractable, w/o stat migr M54.81 Occipital neuralgia M25.572 Pain in left ankle and joint s of left foot Office Visit 05/31/2020 2:15p Main office - [place] Maryse singh P.A.-C. G43.709 Chronic migraine w/o aura, not intractab le, w/o stat migr M54.81 Occipital neuralgia M79.7 Fibromyalgia M54.2 Cervicalgia M54.5 Low back pain M54.18 Radiculopathy, sacral and sa crococcygeal region M79.672 Pain in left foot M25.572 Pain in left ankle and joint s of left foot J01.90 Acute sinusitis, unspecified Assessments Date Code Description Provider 08/30/2020 M54.5 Low back pain Star KeenanA.-C. 08/30/2020 M51.36 Other intervertebral disc degene ration, lumbar region Maryse Cook P.A.-C. 08/30/2020 M54.18 Radiculopathy, sacral and sacroc occygeal region Maryse Cook P.A.-C. 08/30/2020 M54.2 Cervicalgia Maryse Cook P.A.-C. 08/30/2020 M79.7 Fibromyalgia Maryse Cook P.A.-C. 08/30/2020 G43.709 Chronic migraine wit hout aura, not intractable, without status migrainosus Nereida Keenan.A.-C. 08/30/2020 M54.81 Occipital neuralgia Maryse singh P.A.-C. 08/30/2020 M25.572 Pain in left ankle and joints of left foot Nereida Keenan.A.-C. 06/22/2020 M54.5 Low back pain Andre Chencho, M.D . 06/22/2020 M54.5 Low back pain MRI 06/22/2020 M54.18 Radiculopathy, sacral and sacroc occygeal region Andre Chencho, M.D. 06/22/2020 M54.18 Radiculopathy, sacral and sacroc occygeal region MRI 06/22/2020 M51.36 Other intervertebral disc degene ration, lumbar region Andre Chencho, M.D. 06/22/2020 M51.36 Other intervertebral disc degene ration, lumbar region MRI 05/31/2020 G43.709 Chronic migraine wit hout aura, not intractable, without status migrainosus Nereida Keenan.A.-C. 05/31/2020 M54.81 Occipital neuralgia Maryse singh P.A.-C. 05/31/2020 M79.7 Fibromyalgia Nereida Keenan.A.-C. 05/31/2020 M54.2 Cervicalgia Maryse Cook P.A.-C. 05/31/2020 M54.5 Low back pain Maryse Cook P.A.-C. 05/31/2020 M54.18 Radiculopathy, sacral and sacroc occygeal region Maryse Cook P.A.-C. 05/31/2020 M79.672 Pain in left foot Star MattsonA.-C. 05/31/2020 M25.572 Pain in left ankle and joints of left foot Nereida Keenan.A.-C. 05/31/2020 J01.90 Acute sinusitis, unspecified Nereida Baker.A.-C. Plan of Treatment 08/30/2020 - Nereida Keenan.A.-C.* M54.5 Low back pain* Comments:* She declines a referral to pain management. Refill of hydrocodone for #21 tabs s ent eRx. She was reminded that it is being tapered. * M51.36 Other intervertebral disc degeneration, lumbar region * M54.18 Radiculopathy, sacral and sacrococcygeal region * M54.2 Cervicalgia* Comments:* Stable. * M79.7 Fibromyalgia* Comments:* Reassess at next appt. * G43.709 Chronic migraine without aura, not intractable, without status migrainosus* Comments:* Controlled. * M54.81 Occipital neuralgia* Comments:* Stable. * M25.572 Pain in left ankle and joints of left foot* Comments:* She did not have her labs or xray performed. There is a family history of RA. She was encouraged to have labs drawn. New order faxed. * Follow up:* 3 months Functional Status Description No Information Available Mental Status Description No Information Available Referrals Refer to Reason for Referral Status Appt Date Andre Paiz M.D. Created [facility] [place] [address] [phone] Andre Paiz M.D. Created [facility] [address] [place] [address] [phone]
--- OUTSIDE RECORDS SUMMARY | 2020-11-12 14:29 | CCD | Continuity of Care Document ---
Author Author Ashlee COOK P.A.-C. Organization Unknown Address [address] [place] [address] Phone [phone] Care Team Providers Care Site Safety Coordinator Name Role Phone Jackie Mujica DO AUTM [phone] AnthonyVilman ANP-BC AUTM [phone] Problems Description No Information Available Social History [...] 80 /min Respiratory Rate 16 /min Results Description No Information Available Procedures Date Code Description Status 06/22/2020 07087 MRI Spine Lumbar W/O Contrast Co mpleted 06/22/2020 57554 MRI Spine Lumbar W/O Contrast Co mpleted Medical Devices Description No Information Available Encounters Type Date Location Provider Dx Diagnosis Office Visit 05/31/2020 2:15p Main office - [place] Maryse singh P.A.-C. G43.709 Chronic migraine w/o aura, not intractab le, w/o stat migr M54.81 Occipital neuralgia M79.7 Fibromyalgia M54.2 Cervicalgia M54.5 Low back pain M54.18 Radiculopathy, sacral and sa crococcygeal region M79.672 Pain in left foot M25.572 Pain in left ankle and joint s of left foot J01.90 Acute sinusitis, unspecified Assessments Date Code Description Provider 08/30/2020 M54.5 Low back pain Maryse Cook P.A.-C. 08/30/2020 M51.36 Other intervertebral disc degene ration, lumbar region Maryse Cook P.A.-C. 08/30/2020 M54.18 Radiculopathy, sacral and sacroc occygeal region Maryse Cook P.A.-C. 08/30/2020 M54.2 Cervicalgia Nereida Keenan.A.-C. 08/30/2020 M79.7 Fibromyalgia Maryse Cook P.A.-C. 08/30/2020 G43.709 Chronic migraine wit hout aura, not intractable, without status migrainosus Nereida Keenan.A.-C. 08/30/2020 M54.81 Occipital neuralgia Nereida Gibbs.A.-C. 06/22/2020 M54.5 Low back pain Andre Chencho, [...] migrainosus Nereida Keenan.A.-C. 05/31/2020 M54.81 Occipital neuralgia Nereida Gibbs.A.-C. 05/31/2020 M79.7 Fibromyalgia Nereida Keenan.A.-C. 05/31/2020 M54.2 Cervicalgia Nereida Keenan.A.-C. 05/31/2020 M54.5 Low back pain Nereida Keenan.A.-C. 05/31/2020 M54.18 Radiculopathy, sacral and sacroc occygeal region Nereida Keenan.A.-C. 05/31/2020 M79.672 Pain in left foot Hua Mattson-CGiovani 05/31/2020 M25.572 Pain in left ankle and joints of left foot Nereida Keenan.A.-C. 05/31/2020 J01.90 Acute sinusitis, unspecified Star BakerA.BraydonCGiovani Plan of Treatment No Information Available Functional Status Description No Information Available Mental Status Description No Information Available Referrals Refer to Reason for Referral Status Appt Date Chencho, Andre, M.D. Created [facility] [address] [place] [address] [phone] Andre Paiz M.D. Created [facility] [address] [place] [address] [phone]
--- OUTSIDE RECORDS SUMMARY | 2020-11-12 14:29 | CCD | Continuity of Care Document ---
Author Author Ashlee COOK P.A.-C. Organization Unknown Address [address] [place] [address] Phone [phone] Care Team Providers Care Nuclear Medicine Pet Ct Technologist Name Role Phone Jackie Mujica DO AUTM [phone] AnthonyVilman ANP-BC AUTM [phone] Problems Description No Information Available Social History [...] Available Procedures Date Code Description Status 06/22/2020 15868 MRI Spine Lumbar W/O Contrast Co mpleted 06/22/2020 36199 MRI Spine Lumbar W/O Contrast Co mpleted Medical Devices Description No Information Available Encounters Type Date Location Provider Dx Diagnosis Office Visit 08/30/2020 10:45a Main office - [place] Maryse singh, P.A.-C. M54.5 Low back pain M51.36 Other intervertebral disc de generation, lumbar region M54.18 Radiculopathy, sacral and sa crococcygeal region M54.2 Cervicalgia M79.7 Fibromyalgia G43.709 Chronic migraine w/o aura, n ot intractable, w/o stat migr M54.81 Occipital neuralgia M25.572 Pain in left ankle and joint s of left foot Office Visit 05/31/2020 2:15p Main office - [place] Maryse singh, P.A.-C. G43.709 Chronic migraine w/o aura, not intractab le, w/o stat migr M54.81 Occipital neuralgia M79.7 Fibromyalgia M54.2 Cervicalgia M54.5 Low back pain M54.18 Radiculopathy, sacral and sa crococcygeal region M79.672 Pain in left foot M25.572 Pain in left ankle and joint s of left foot J01.90 Acute sinusitis, unspecified Assessments Date Code Description Provider 08/30/2020 M54.5 Low back pain Nereida Keenan.A.-C. 08/30/2020 M51.36 Other intervertebral disc degene ration, lumbar region Maryse Cook P.A.-C. 08/30/2020 M54.18 Radiculopathy, sacral and sacroc occygeal region Nereida Keenan.A.-C. 08/30/2020 M54.2 Cervicalgia Nereida Keenan.A.-C. 08/30/2020 M79.7 Fibromyalgia Maryse Cook P.A.-C. 08/30/2020 G43.709 Chronic migraine wit hout aura, not intractable, without status migrainosus Nereida Keenan.A.-C. 08/30/2020 M54.81 Occipital neuralgia Nereida Gibbs.A.-C. 08/30/2020 M25.572 Pain in left ankle and [...] Nereida Keenan.A.-C. 05/31/2020 M54.5 Low back pain Maryse Cook P.A.-C. 05/31/2020 M54.18 Radiculopathy, sacral and sacroc occygeal region Maryse Cook P.A.-C. 05/31/2020 M79.672 Pain in left foot Maryse coates P.A.-C. 05/31/2020 M25.572 Pain in left ankle and joints of left foot Maryse Cook P.A.-C. 05/31/2020 J01.90 Acute sinusitis, unspecified Silvina Cook P.A.-C. Plan of Treatment 08/30/2020 - Maryse Cook P.A.-C.* M54.5 Low back pain* Comments:* She declines [...] Status Appt Date Andre Paiz M.D. Created [facility] [address] [place] [address] [phone] Andre Paiz M.D. Created [facility] [address] [place] [address] [phone]
--- OUTSIDE RECORDS SUMMARY | 2020-11-12 14:29 | CCD | Continuity of Care Document ---
Author Author Ashlee ORR PA Organization Unknown Address [address] [place] [id number] Phone [phone] Care Team Providers Care Photographic Colorist Name Role Phone Theresa Mcintosh MD AUTM [phone] Emilee Cruz NP AUTM [phone] Problems Description No Information Available Social History Type Date Description Comments Sex Unknown Tobacco Use Start: Unknown End: Unknown Quit 05/25 ETOH Use Rarely consumes alcohol Tobacco Use Start: Unknown End: Unknown Patient is a former smoker Smoking Status Reviewed: 09/08/20 Patient is a former smoker Allergies, Adverse Reactions, Alerts Active Allergies Reaction Severity Comments Date Tramadol vomiting 07/09/2020 Morphine vomiting 07/09/2020 Inactive Allergies NKDA 05/24/2009 Medications Active Medications SIG Qnty Indications Ordering Provide r Date Sulfamethoxazole/Trimethoprim DS 800-160mg Tablets 1 by mouth twice a day x 7 days 14tabs J01.40 Bakari Alonso JR., M.D. 09/08/2020 Prednisone 20mg Tablets 1 tabs twice a day x 5 days 10tabs J01.40 Bakari Alonso JR., M.D. Fluticasone Propionate 50mcg/Act Suspension 2 spray each nostril every day 16gm J30.9 Bakari Alonso JR., M.D. 10/25/2016 Vicodin 5-500mg Tablets 1 tab every 6 hours as needed for pain Unknown 00//0 000 Mvi Unknown Vitamin D3 Maximum Strength 5000Unit Capsules qd Unknown Imitrex Statdose System 6mg/0.5ML Solution Auto-Inject as needed Unknown Vitamin E Unknown Ruthann Pot Unknown Fenofibrate Unknown Glucosamine Chondroitin 1500 Complex 1500Com Capsules Unknown History Medications Polymyxin B Sulfate/Trimethoprim Sulfate 39270-1.1Unit/ML-% Solution 1 drop four times a day to affected eye as directed for 5-7 days 10ml H10.31 Bakari Alonso JR., M.D. - 07/16/2020 Ketorolac Tromethamine 0.5% Soluti on 1 drop twice a day as needed for allergy symptoms / eye redness 3ml H10.31 Bakari Alonso JR., M.D. 07/09/2020 - 07/14/2020 Immunizations Description No Information Available Vital Signs Date Vital Result Comment 09/08/2020 4:51pm BP Systolic 124 mmHg BP Diastolic 84 mmHg Heart Rate 85 /min Respiratory Rate 18 /min O2 % BldC Oximetry 98 % Body Temperature 97.7 F Weight 164.00 lb Height 62 inches 5'2" BMI (Body Mass Index) 30.0 kg/m2 Pain Level 10 07/09/2020 12:09pm BP Systolic 127 mmHg BP Diastolic 86 mmHg Heart Rate 89 /min Respiratory Rate 12 /min O2 % BldC Oximetry 97 % Body Temperature 98.1 F Weight 164.00 lb Height 62 inches 5'2" BMI (Body Mass Index) 30.0 kg/m2 Pain Level 7 Results Description No Information Available Procedures Description No Information Available Medical Devices Description No Information Available Encounters Type Date Location Provider Dx Diagnosis Office Visit 09/08/2020 5:45p Main Office [facility] [place] J01.4 0 Acute pansinusitis, unspecified Z20.828 Contact w and exposure to ot h viral communicable diseases Office Visit 07/09/2020 12:50p Main Office Loly Navarrete NP H10. 31 Unspecified acute conjunctivitis, right eye Assessments Date Code Description Provider 09/08/2020 J01.40 Acute pansinusitis, unspecified [place] 09/08/2020 Z20.828 Contact with and (bowen spected) exposure to other viral communicable diseases [facility] [place] 07/09/2020 H10.31 Unspecified acute conjunctivitis , right eye Loly Navarrete NP Plan of Treatment No Information Available Functional Status Description No Information Available Mental Status Description No Information Available Referrals Description No Information Available
--- OUTSIDE RECORDS SUMMARY | 2020-11-12 14:29 | CCD | Continuity of Care Document ---
Author Author Ashlee ALFONSO PA Organization Unknown Address [address] [place] [address] Phone [phone] Care Team Providers Care Wedding Makeup Artist Name Role Phone Theresa Mcintosh MD AUTM [phone] Emilee Cruz NP AUTM [phone] Problems Description No Information Available Social History Type Date Description Comments Sex Unknown Tobacco Use Start: Unknown End: Unknown Quit 05/25 ETOH Use Rarely consumes alcohol Tobacco Use Start: Unknown End: Unknown Patient is a former smoker Smoking Status Reviewed: 10/31/20 Patient is a former smoker Allergies, Adverse Reactions, Alerts Active Allergies Reaction Severity Comments Date Tramadol vomiting 07/09/2020 Morphine vomiting 07/09/2020 Inactive Allergies NKDA 05/24/2009 Medications Active Medications SIG Qnty Indications Ordering Provide r Date Bactrim DS 800-160mg Tablets 1 tab by mouth q12 hours for 10 days 20tabs J01.90 Bakari Guillaume M.D. 10/31/2020 Prednisone 20mg Tablets 1 tab by mouth twice a day for 4 days 8tabs J01.90 Umair Zuñiga JR. 10/31/2020 Diflucan 150mg Tablets take 1 tab by mouth once 1tabs J01.90 Bakari Alonso JR., M.D. Fluticasone Propionate 50mcg/Act Suspension 2 spray each nostril every day 16gm J30.9 Bakari Alonso JR., M.D. 10/25/2016 Vicodin 5-500mg Tablets 1 tab every 6 hours as needed for pain Unknown 00/00/0 000 Mvi Unknown Vitamin D3 Maximum Strength 5000Unit Capsules qd Unknown Imitrex Statdose System 6mg/0.5ML Solution Auto-Inject as needed Unknown Vitamin E Unknown Ruthann Pot Unknown Fenofibrate Unknown Glucosamine Chondroitin 1500 Complex 1500Com Capsules Unknown History Medications Sulfamethoxazole/Trimethoprim DS 800-160mg Tablets 1 by mouth twice a day x 7 days 14tabs J01.40 Bakari Alonso JR., M.D. 09/08/2020 - 10/31/2020 Prednisone 20mg Tablets 1 tabs twice a day x 5 days 10tabs J01.40 Bakari Alonso JR., M.D. - 09/13/2020 Polymyxin B Sulfate/Trimethoprim Sulfate 80512-7.1Unit/ML-% Solution 1 drop four times a day to affected eye as directed for 5-7 days 10ml H10.31 Bakari Alonso JR., M.D. - 07/16/2020 Ketorolac Tromethamine 0.5% Soluti on 1 drop twice a day as needed for allergy symptoms / eye redness 3ml H10.31 Bakari Alonso JR., M.D. 07/09/2020 - 07/14/2020 Immunizations Description No Information Available Vital Signs Date Vital Result Comment 10/31/2020 2:32pm BP Systolic 124 mmHg BP Diastolic 85 mmHg Heart Rate 94 /min Respiratory Rate 13 /min O2 % BldC Oximetry 98 % Body Temperature 95.7 F Weight 164.00 lb Height 62 inches 5'2" BMI (Body Mass Index) 30.0 kg/m2 Pain Level 5 09/08/2020 4:51pm BP Systolic 124 mmHg BP Diastolic 84 mmHg Heart Rate 85 /min Respiratory Rate 18 /min O2 % BldC Oximetry 98 % Body Temperature 97.7 F Weight 164.00 lb Height 62 inches 5'2" BMI (Body Mass Index) 30.0 kg/m2 Pain Level 10 Results Description No Information Available Procedures Description No Information Available Medical Devices Description No Information Available Encounters Type Date Location Provider Dx Diagnosis Office Visit 10/31/2020 10:35a Main Office [facility] [place] J01.90 Acute sinusitis, unspecified Office Visit 09/08/2020 5:45p Main Office [place] J01.4 0 Acute pansinusitis, unspecified Z20.828 Contact w and exposure to ot h viral communicable diseases Office Visit 07/09/2020 12:50p Main Office Loly Navarrete NP H10. 31 Unspecified acute conjunctivitis, right eye Assessments Date Code Description Provider 10/31/2020 J01.90 Acute sinusitis, unspecified [place] 09/08/2020 J01.40 Acute pansinusitis, unspecified [place] 09/08/2020 Z20.828 Contact with and (bowen spected) exposure to other viral communicable diseases [place] 07/09/2020 H10.31 Unspecified acute conjunctivitis , right eye Loly Navarrete NP Plan of Treatment 10/31/2020 - [place]* J01.90 Acute sinusitis, unspecified* New Medication:* Bactrim DS 800-160 mg - 1 tab by mouth q12 hours for 10 days * Prednisone 20 mg - 1 tab by mouth twice a day for 4 days * Diflucan 150 mg - take 1 tab by mouth once Functional Status Description No Information Available Mental Status Description No Information Available Referrals Description No Information Available
--- OUTSIDE RECORDS SUMMARY | 2020-11-12 14:29 | CCD | Continuity of Care Document ---
Author Author Ashlee CRUZ Organization Unknown Address [address] [place] [address] Phone [phone] Care Team Providers Care Inspector Weights And Measures Name Role Phone Emilee Cruz AUTM [phone] Problems Active Problems Provider Date Migraine ELTON Presley PNP Onset: 9 Taking medication ELTON Presley PNP Onset: 9 Low back pain ELTON Presley PNP Onset: 9 Family history of diabetes mellitus ELTON Presley PNP Onset: 12/19/2018 Pure hypercholesterolemia ELTON Presley, DEJAN Onset: 12/2018 Pure hyperglyceridemia ELTON Presley, DEJAN Onset: 2018 Arthralgia of the pelvic region and thigh ELTON Presley , DEJAN Onset: 12/19/2018 Social History Type Date Description Comments Sex Unknown Tobacco Use Start: Unknown End: Quit Tobacco Use Start: Unknown Never Smoked Cigars Tobacco Use Start: Unknown Never Smoked A Pipe Tobacco Use Start: Unknown Never Used Smokeless Tobacco ETOH Use Rarely consumes alcohol Recreational Drug Use Denies Drug Use Tobacco Use Start: Unknown End: Unknown Patient is a former smoker Allergies, Adverse Reactions, Alerts Active Allergies Reaction Severity Comments Date Tramadol nausea and vomiting Moderate 12/20/19 19 Morphine Nausea, Vomiting Moderate 12/19/2018 Medications Active Medications SIG Qnty Indications Ordering Provide r Date Vitamin D (Ergocalciferol) 1.25mg (86016 Ut) Capsules take 1 capsule by mouth once a week 12caps J01.90 ELTON Presley, PNP 09/03/2020 Flonase Allergy Relief 50mcg/Act Suspension 2 sprays (50 mcg/spray) per nostril once daily 29.7ml ELTON Presley, PNP 12/19/2018 Hydrocodone-Acetaminophen 7.5-325mg Tablets 1 by mouth twice a day as needed 14tabs Maryse Cook PA Shaista Allergy 180mg Tablets 1 by mouth every day Unknown Multivitamin Adult Tablets 1 by mouth every day Unknown Vitamin E 1 by mouth every day Unknown Fenofibrate 54mg Tablets take 1 tablet by mouth once daily 90tabs ELTON Presley, PNP 000 Collagen Hydrolysate Powder 2 scoops every day Unknown Sumatriptan Succinate 100mg Tablet s Take One Tablet By Mouth AT Onset Of Headache May Repeat For One Dose In 2 Hours.Max Of 2 Tablets Per Day Unknown Sumatriptan Succinate 6mg/0.5ML Solution Auto-Inject Inject One Dose Subq AT The Onset Of Parmjit abdullahi May Repeat Once In 2 Hours . Max Of2 Doses Per Day Unknown Immunizations Description No Information Available Vital Signs Date Vital Result Comment 10/07/2020 9:59am BP Systolic 130 mmHg BP Diastolic 80 mmHg Heart Rate 82 /min Body Temperature 97.2 F Respiratory Rate 18 /min O2 % BldC Oximetry 98 % Weight 164.50 lb Weight 74.617 kg Height 62.25 inches 5'2.25" BMI (Body Mass Index) 29.8 kg/m2 BSA (Body Surface Area) 1.76 m2 12/29/2019 1:54pm BP Systolic 126 mmHg BP Diastolic 82 mmHg Heart Rate 94 /min Body Temperature 98.2 F Respiratory Rate 18 /min O2 % BldC Oximetry 97 % Weight 165.00 lb Weight 74.844 kg Height 62.25 inches 5'2.25" BMI (Body Mass Index) 29.9 kg/m2 BSA (Body Surface Area) 1.77 m2 Results Test Acquired Date Facility Test Result H/L Range Note Laboratory test finding 10/05/2020 [facility] Erythrocyte Sedimentation Rate 6 mm/hr Normal 0-30 Rheumatoid Factor Quant < 10.0 IU/mL Normal <15.0 Antinuclear Antibodies 10/05/2020 [facility] Antinuclear Antibodies Direct Negative Normal Negative 1 CBC With Differential 10/05/2020 [facility] White Blood Count 6.6 10 Normal 4.0-10.0 Red Blood Count 4.75 10 Normal 4.00-5.40 Hemoglobin 13.3 g/dL Normal 12.0-15.5 Hematocrit 41.3 % Normal 36.0-47.0 Mean Corpuscular Volume 86.9 fl Normal 80.0-96.0 Mean Corpuscular Hemoglobin 28.0 pg Normal 27.0-33.0 Mean Corpuscular HGB Conc 32.2 g/dL Normal 32.0-36.5 Red Cell Distribution Width 12.5 % Normal 11.5-14.5 Platelet Count, Automated 352 10 Normal 150-450 Neutrophils % 52.0 % Normal 36.0-66.0 Lymph % 33.9 % Normal 24.0-44.0 [place] % 8.3 % High 0.0-5.0 Eos % 4.1 % High 0.0-3.0 Baso % 1.5 % High 0.0-1.0 Immature Granulocyte % 0.2 % Normal 0-3.0 Nucleated Red Blood Cell % 0.0 % Normal 0-0 Neutrophils # 3.4 10 Normal 1.5-8.5 Lymph # 2.2 10 Normal 1.5-5.0 [place] # 0.6 10 Normal 0.0-0.8 Eos # 0.3 10 Normal 0.0-0.5 Baso # 0.1 10 Normal 0.0-0.2 Hemoglobin A1c 10/05/2020 [facility] Hemoglobin A1c 5.9 % Normal 2 Estimated Average Glucose 123 mg/dL High 60-110 Comprehensive Metabolic Profil 10/05/2020 [facility] Glucose, Fasting 110 mg/dL High 70-100 Blood Urea Nitrogen 15 mg/dL Normal 7-18 Creatinine For GFR 0.96 mg/dL Normal 0.55-1.30 Glomerular Filtration Rate > 60.0 Normal >51 3 Sodium Level 140 mEq/L Normal 136-145 Potassium Serum 4.4 mEq/L Normal 3.5-5.1 Chloride Level 107 mEq/L Normal 98-107 Carbon Dioxide Level 25 mEq/L Normal 21-32 Anion Gap 8 mEq/L Normal 8-16 Calcium Level 9.3 mg/dL Normal 8.5-10.1 Ast/Sgot 21 U/L Normal 7-37 Alt/SGPT 33 U/L Normal 12-78 Alkaline Phosphatase 45 U/L Normal 45-117 Bilirubin,Total 0.3 mg/dL Normal 0.2-1.0 Total Protein 6.4 GM/DL Normal 6.4-8.2 Albumin 3.9 GM/DL Normal 3.2-5.2 Albumin/Globulin Ratio 1.6 Normal 1.2-2.2 Lipid Panel 10/05/2020 [facility] Triglycerides Level 184 mg/dL High <150 Cholesterol Level 240 mg/dL High <200 HDL Cholesterol 63 mg/dL Normal >40 LDL Cholesterol 140 mg/dL High <100 Non-HDL-C 177 mg/dL Normal Cholesterol Risk Ratio 3.809 Normal <5 Laboratory test finding 10/05/2020 [facility] Thyroid Stimulating Hormone 2.690 uIU/ML Normal 0.358-3.740 Total 25(Oh) Vitamin D 34.4 NG/ML Normal 30.0-100.0 1 Performed at: RN - [facility] [address] [id number] Vegetable Grader: Geraldine Martinez MD, Phone: [phone] REFERENCE RANGES: <=5.6% NORMAL 5.7-6.4% SUGGESTS IMPAIRED GLUCOSE META BOLISM/PREDIABETIC >= 6.5% ABNORMAL 3 Units are mL/min/1.73 m2 Chronic Kidney Disease Staging per NKF: Stage I & II GFR >=60 Normal to Mildly Decreased Stage III GFR 30-59 Moderately Decreased Stage IV GFR 15-29 Severely Decreased Stage V GFR <15 Very Little GFR Left ESRD GFR <15 on LIQUOR DEPARTMENT MANAGER Procedures Date Code Description Status 10/07/2020 39474 Admin Patient Focused Health Ris k Assessment Instrument Completed Medical Devices Description No Information Available Encounters Description No Information Available Assessments Date Code Description Provider 10/07/2020 Z00.01 Encounter for genera l adult medical examination with abnormal findings ELTON Presley, PNP 10/07/2020 E78.00 Pure hypercholesterolemia, unspe cified ELTON Presley, PNP 10/07/2020 R73.03 Prediabetes DAVID Presley, PNP 10/07/2020 E55.9 Vitamin D deficiency, unspecifie d ELTON Presley, PNP 10/07/2020 E03.9 Hypothyroidism, unspecified ELTON Presley, PNP 10/07/2020 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 Recent labs reviewed. Goal is to keep her health issues stable so she can remain active and live independently. * E78.00 Pure hypercholesterolemia, unspecified* Comments:* Labs reviewed with the patient in detail.Lipid panel showed:TRG high at 184.CHOL high at 240.HDL at 63.LDL high at 140.She will continue with her current regimen.She was encouraged to maintain a low cholesterol diet and a regular exercise r egimen.We will continue to monitor. Total Cholesterol, LDL and TRG elevated, discussed dietary changes to improve, avoiding meat and dairy products, avoiding processed foodsDecrease saturated Fats (meat, dairy products and processed foods)Increase Unsaturated fats (fish, plants, nuts, seeds, beans and vegetable oils)Increase aerobic exerciseIncrease water intake Read Labels * R73.03 Prediabetes* Comments:* Patient's fasting glucose is high at 110 with an A1c at 5.9.Patient will benefit from maintaining a diabetic diet and a regular exercise regimen. Discussed decrease in sugar intake;No sugared drinksDo not keep sugar out where it can be readily usedNo concentrated sweets or baked goodsChoose fruits or vegetable snacksIncrease water intake.We will continue to monitor. * Follow up:* IN 3 months, fasting lab first. * E55.9 Vitamin D deficiency, unspecified* Comments:* Vit D 34.4. We will continue current supplements and will need to check bloodwork periodically. * Follow up:* FU in 3 months, fasting labs first. * E03.9 Hypothyroidism, unspecified* Comments:* TSH at 2.690.We will continue to monitor through periodic blood work. * Z79.899 Other assisted (current) drug therapy* Comments:* Patient to continue to follow the current plan of care and to look for any new or worsening symptoms. We will continue to monitor through periodic blood work. * Follow up:* FU in 3 months, fasting labs first. Functional Status Description No Information Available Mental Status Description No Information Available Referrals Refer to Reason for Referral Status Appt Date Created
--- OUTSIDE RECORDS SUMMARY | 2020-11-12 14:29 | CCD | Continuity of Care Document ---
Author Author Ashlee CRUZ Organization Unknown Address [address] [place] [address] Phone [phone] Care Team Providers Care Mortgage Loan Underwriter Name Role Phone Emilee Cruz AUTM [phone] Problems Active Problems Provider Date Migraine ELTON [...] Provide r Date Vitamin D (Ergocalciferol) 1.25mg (47299 Ut) Capsules take 1 capsule by mouth [...] H/L Range Note Laboratory test finding 10/05/2020 [facility] Erythrocyte Sedimentation Rate 6 mm/hr Normal 0-30 Rheumatoid Factor Quant < 10.0 IU/mL Normal <15.0 Antinuclear Antibodies 10/05/2020 [facility] Antinuclear Antibodies Direct Negative Normal Negative 1 CBC With Differential 10/05/2020 [facility] White Blood Count 6.6 10 Normal [...] 36.0-66.0 Lymph % 33.9 % Normal 24.0-44.0 Dundy % 8.3 % High 0.0-5.0 Eos % 4.1 % High 0.0-3.0 Baso % 1.5 % High 0.0-1.0 Immature Granulocyte % 0.2 % Normal 0-3.0 Nucleated Red Blood Cell % 0.0 % Normal 0-0 Neutrophils # 3.4 10 Normal 1.5-8.5 Lymph # 2.2 10 Normal 1.5-5.0 Dundy # 0.6 10 Normal 0.0-0.8 Eos # 0.3 10 Normal 0.0-0.5 Baso # 0.1 10 Normal 0.0-0.2 Hemoglobin A1c 10/05/2020 [facility] Hemoglobin A1c 5.9 % Normal 2 Estimated Average Glucose 123 mg/dL High 60-110 Comprehensive Metabolic Profil 10/05/2020 [facility] Glucose, Fasting 110 mg/dL High 70-100 [...] Ratio 1.6 Normal 1.2-2.2 Lipid Panel 10/05/2020 [facility] Triglycerides Level 184 mg/dL High <150 Cholesterol Level 240 mg/dL High <200 HDL Cholesterol 63 mg/dL Normal >40 LDL Cholesterol 140 mg/dL High <100 Non-HDL-C 177 mg/dL Normal Cholesterol Risk Ratio 3.809 Normal <5 Laboratory test finding 10/05/2020 [facility] Thyroid Stimulating Hormone 2.690 uIU/ML Normal 0.358-3.740 Total 25(Oh) Vitamin D 34.4 NG/ML Normal 30.0-100.0 1 Performed at: RN - [facility] [address] [id number] Engineer Rf Deployment: Geraldine Martinez MD, Phone: [phone] 2 REFERENCE RANGES: <=5.6% NORMAL 5.7-6.4% SUGGESTS IMPAIRED GLUCOSE META BOLISM/PREDIABETIC >= 6.5% ABNORMAL 3 Units are mL/min/1.73 m2 Chronic Kidney Disease Staging per NKF: Stage I & II GFR >=60 Normal to Mildly Decreased Stage III GFR 30-59 Moderately Decreased Stage IV GFR 15-29 Severely Decreased Stage V GFR <15 Very Little GFR Left ESRD GFR <15 on ORCHESTRA DIRECTOR Procedures Date Code Description Status 10/07/2020 15106 Admin Patient Focused Health Ris k Assessment [...] unspecified ELTON Presley, PNP 10/07/2020 Z79.899 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 * Z79.899 Other longterm (current) drug therapy* Comments:* Patient to continue [...]
--- OUTSIDE RECORDS SUMMARY | 2020-11-12 14:29 | CCD | Continuity of Care Document ---
Author Author Ashlee ALFONSO PA Organization Unknown Address [address] [place] [address] Phone [phone] Care Team Providers Care Assistant Banquet Manager Name Role Phone Theresa Mcintosh MD AUTM [phone] Emilee Cruz NP AUTM [phone] Problems Description No Information Available Social History [...] SIG Qnty Indications Ordering Provide r Date Fluticasone Propionate 50mcg/Act Suspension 2 spray each nostril every day 16gm J30.9 Bakari Alonso JR., M.D. 10/25/2016 Vicodin 5-500mg Tablets 1 tab every 6 hours as needed for pain Unknown 0 000 Mvi Unknown Vitamin D3 Maximum Strength [...] M.D. - 09/13/2020 Polymyxin B Sulfate/Trimethoprim Sulfate 71061-6.1Unit/ML-% Solution 1 drop four times a day [...] Description Provider 10/31/2020 J01.90 Acute sinusitis, unspecified Dee VON Rashid 09/08/2020 J01.40 Acute pansinusitis, unspecified VON Mcclelland 09/08/2020 Z20.828 Contact with and (bowen spected) exposure to other viral communicable diseases VON Mcclelland 07/09/2020 H10.31 Unspecified acute conjunctivitis , right eye Loly Navarrete NP Plan of Treatment No Information Available Functional Status Description No Information Available Mental Status Description No Information Available Referrals Description No Information Available
--- OUTSIDE RECORDS SUMMARY | 2020-11-12 14:29 | CCD | Continuity of Care Document ---
Author Organization Unknown Address Unknown Phone Unavailable Care Team Providers Care Fruit Sorter Name Role Phone Emilee Cruz AUTM [phone] Problems Active Problems Provider Date Migraine ELTON Presley PNP Onset: 9 Taking medication ELTON Presley PNP Onset: 9 Low back pain ELTON Presley PNP Onset: 9 Family history of diabetes mellitus ELTON Presley PNP Onset: 12/19/2018 Pure hypercholesterolemia ELTON Presley PNP Onset: 12/2018 Pure hyperglyceridemia ELTON Presley, DEJAN Onset: 2018 Arthralgia of the pelvic region and thigh ELTON Presley PNP Onset: 12/19/2018 Social History Type Date Description [...] Provide r Date Vitamin D (Ergocalciferol) 1.25mg (84890 Ut) Capsules take 1 capsule by mouth once a week 12caps J01.90 ELTON Presley, DEJAN 09/03/2020 Flonase Allergy Relief 50mcg/Act Suspension 2 sprays (50 mcg/spray) per nostril once daily 29.7ml ELTON Presley PNP 12/19/2018 Hydrocodone-Acetaminophen 7.5-325mg Tablets 1 by mouth twice a day as needed 14tabs Maryse Cook PA Shaista Allergy 180mg Tablets 1 by mouth every day Unknown Multivitamin Adult Tablets 1 by mouth every day Unknown Vitamin E 1 by mouth every day Unknown Fenofibrate 54mg Tablets take 1 tablet by mouth once daily 90tabs WILMAN Presley-BC, PNP 000 Collagen Hydrolysate Powder 2 scoops [...] H/L Range Note Laboratory test finding 10/05/2020 [facility] Erythrocyte Sedimentation Rate 6 mm/hr Normal 0-30 Rheumatoid Factor Quant < 10.0 IU/mL Normal <15.0 Antinuclear Antibodies 10/05/2020 [facility] Antinuclear Antibodies Direct Negative Normal Negative 1 CBC With Differential 10/05/2020 [facility] White Blood Count 6.6 10 Normal [...] 36.0-66.0 Lymph % 33.9 % Normal 24.0-44.0 Archuleta % 8.3 % High 0.0-5.0 Eos % 4.1 % High 0.0-3.0 Baso % 1.5 % High 0.0-1.0 Immature Granulocyte % 0.2 % Normal 0-3.0 Nucleated Red Blood Cell % 0.0 % Normal 0-0 Neutrophils # 3.4 10 Normal 1.5-8.5 Lymph # 2.2 10 Normal 1.5-5.0 Archuleta # 0.6 10 Normal 0.0-0.8 Eos # 0.3 10 Normal 0.0-0.5 Baso # 0.1 10 Normal 0.0-0.2 Hemoglobin A1c 10/05/2020 [facility] Hemoglobin A1c 5.9 % Normal 2 Estimated Average Glucose 123 mg/dL High 60-110 Comprehensive Metabolic Profil 10/05/2020 [facility] Glucose, Fasting 110 mg/dL High 70-100 [...] Ratio 1.6 Normal 1.2-2.2 Lipid Panel 10/05/2020 [facility] Triglycerides Level 184 mg/dL High <150 Cholesterol Level 240 mg/dL High <200 HDL Cholesterol 63 mg/dL Normal >40 LDL Cholesterol 140 mg/dL High <100 Non-HDL-C 177 mg/dL Normal Cholesterol Risk Ratio 3.809 Normal <5 Laboratory test finding 10/05/2020 [facility] Thyroid Stimulating Hormone 2.690 uIU/ML Normal 0.358-3.740 Total 25(Oh) Vitamin D 34.4 NG/ML Normal 30.0-100.0 1 Performed at: RN - [facility] [address] [id number] [employer] Teacher: Geraldine Martinez MD, Phone: [phone] 2 REFERENCE RANGES: <=5.6% NORMAL 5.7-6.4% SUGGESTS IMPAIRED GLUCOSE META BOLISM/PREDIABETIC >= 6.5% ABNORMAL 3 Units are mL/min/1.73 m2 Chronic Kidney Disease Staging per NKF: Stage I & II GFR >=60 Normal to Mildly Decreased Stage III GFR 30-59 Moderately Decreased Stage IV GFR 15-29 Severely Decreased Stage V GFR <15 Very Little GFR Left ESRD GFR <15 on CONTINUOUS YARN DYEING MACHINE OPERATOR Procedures Date Code Description Status 10/07/2020 28309 Admin Patient Focused Health Ris k Assessment [...] unspecified ELTON Presley, PNP 10/07/2020 Z79.899 Other skilled nursing (current) drug t herapy ELTON Presley, PNP [...] through periodic blood work. * Z79.899 Other skilled nursing (current) drug therapy* Comments:* Patient to continue [...]
--- OUTSIDE RECORDS SUMMARY | 2020-11-12 14:29 | CCD | Continuity of Care Document ---
Author Author Ashlee ORR PA Organization Unknown Address [address] [place] [address] Phone [phone] Care Team Providers Care Supervisor Nuclear Medicine Name Role Phone Theresa Mcintosh MD AUTM [phone] Emilee Cruz NP AUTM [phone] Problems Description No Information Available Social History [...] Unknown History Medications Polymyxin B Sulfate/Trimethoprim Sulfate 42010-3.1Unit/ML-% Solution 1 drop four times a day [...] eye Loly Navarrete NP Plan of Treatment 09/08/2020 - VON Mcclelland* J01.40 Acute pansinusitis, unspecified* New Medication:* Sulfamethoxazole/Trimethoprim DS 800-160 mg - 1 by mouth twice a day x 7 days * Prednisone 20 mg - 1 tabs twice a day x 5 days * Z20.828 Contact with and (suspected) exposure to other viral communicable diseases* Comments:* POC rapid COVID neg today Functional Status Description No Information Available Mental Status Description No Information Available Referrals Description No Information Available
--- OUTSIDE RECORDS SUMMARY | 2020-11-12 14:29 | CCD ---
Author Author [facility] Organization [facility] Address Unknown Phone Unavailable Care Team Providers Care Appliance Counselor Name Role Phone Jesse Trejo Unavailable PROBLEMS Type Condition ICD9-CM Code JSP67-NJ Code Onset Dates Condition S tatus SNOMED Code Notes Problem Candidiasis of female genitalia 112.1 Active 51549698 Problem Pelvic pain in female 625.9 Active 474384879 Problem Vulvar pruritus 698.1 Active 799573585 Problem Vitiligo L80 Active 25377850 Problem Vaginitis 616.10 Active 40416124 Problem Hx of dysplastic nevus Z86.018 Active 571239301 9101 Problem Cervicitis and endocervicitis 616.0 Active 19 5949405 Problem Suprapubic abdominal pain 789.09 Active 931411 006 Problem Burning with urination 788.1 Active 51235029 Problem Vaginal itching 698.1 Active 88695027 Problem Hx of hysterectomy for benign disease Z90.710 Ac tive 907502250 ALLERGIES Allergen (clinical drug ingredient) Drug/Non Drug Allergy do cumented on EMR Reaction Allergy Type Onset Date Status Seasonal watery/ itchy eyes/congestion Non Drug Allergy Active dust mites/ cockroaches wtery,itchy eyes/congestion Non Dr ug Allergy Active tramadol Tramadol HCl(NDC Code:[address]-94) Nausea/Vomiting Drug Allergy Active morphine Morphine Sulfate(NDC Code:[address]-94) Nausea/Vomiti ng Drug Allergy Active Mold watery,itchy eyes/congestion Non Drug Allergy Active ENCOUNTERS from 1968 to 2020-08-20 Encounter Location Date Provider Diagnosis [facility] Dermatology [address] [facility] [address] [place] [address] Aug, Jesse Trejo Nevus, halo D22.9 ; Dermatof ibroma D23.9 ; Skin tag L91.8 ; Vitiligo L80 ; Nevus of neck D22.4 and Screening, malignant neoplasm, skin Z12.83 IMMUNIZATIONS No Information SOCIAL HISTORY Sex Assigned At : Social History Observation Description Sex Assigned At Unknown Language: Question Answer Notes Languages spoken: Mohawk Sexual Hx: Question Answer Notes Had sex in the last 12 months (vaginal, oral, or anal)? Yes LMP: hyster Have you ever had an STD? No Prevention Strategies discussed: Condoms with Men only Use protection? Yes How often? Some of the time REASON FOR REFERRAL No Information VITAL SIGNS Weight 165.2 lbs Aug, Height 61 in Aug, BMI 31.21 kg/m2 Aug, Blood pressure systolic 128 mm Hg Aug, Blood pressure diastolic 88 mm Hg Aug, MEDICATIONS Medication SIG (Take, Route, Frequency, Duration) Notes Start Da te End Date Status Singulair 10 mg 1 tab(s) p.o. Once a day for 30 day(s) Not-Taking Vicodin ES 7.5-750 MG 1 tablet as needed p.o. every 12 hrs as needed Active ZyrTEC 1 tab orally once daily N ot-Taking Astelin 137 MCG/SPRAY 1 puff in each nostril Nasally Twice a day for 30 day(s) Not-Taking Multivitamins otc 1 tab(s) p.o. once a day Not-Taking Triamcinolone Acetonide 0.1 % 1 application Externally Twice a day for 30 days Active Vitamin E 400 UNIT 1 tablet Orally Once a day for 30 day(s) Jun, Active Vitamin B12 1000 MCG 1 tablet Orally Once a day for 30 day(s) Active Nortriptyline HCl 50 mg 1 tab(s) p.o. once a day for 30 day(s) Not-Taking Topamax 100 MG 1 tablet Orally at bedtime Not-Taking Flonase 50 MCG/DOSE 1 spray in each nostril Nasally Once a day f or 30 day(s) Active Estrace 0.1 MG/GM 1/2 gram Vaginal twice weekly for 90 day(s) Mar, Not-Taking Diflucan 150 MG 1 tablet Orally One dose today, repeat i n four days for 5 days Not-Taking Fenofibrate 50 MG as directed Orally Active Clarithromycin 500 MG 1 tablet Orally every 12 hrs Nov, Not-Taking Sudafed 12 Hour 120 MG 1 tablet as needed Orally every 12 hrs Not-Taking Bactrim Not-Taking Vitamin D (Ergocalciferol) 1.25 MG (96889 UT) 1 capsule Orally f or 30 day(s) Active Shaista Active Vitamin D-3 5000 UNIT 1 tab(s) Orally once a day Not-Taking PROCEDURES No Information RESULTS No Results REASON FOR VISIT wart f/u MEDICAL (GENERAL) HISTORY Type Description Date Medical History endometriosis Medical History ovarian cysts Medical History hx frequent BV after sex Medical History pre diabetic Medical History cold sores Medical History Tyrer-Cuzick 22.3%, sister w ith breast cancer at age 46, dense breasts Surgical History laparoscopy x3 Surgical History diskectomy Surgical History hysterectomy has ovaries 03/03/13 Hospitalization History No Hospitalization history informati on Goals Section No Information Health Concerns No Information MEDICAL EQUIPMENT No Information MENTAL STATUS No Information FUNCTIONAL STATUS No Information ASSESSMENTS Encounter Date Diagnosis Assessment Notes Treatment Notes Treatm ent Clinical Notes Aug, Nevus, halo (ICD-10 - D22.9) Benign-appearing today. Reassurance provided, however patient was educated moles can foreign exchange trader time. ABCDE education performed. Patient instructed to return for any changes to the mole to include size, color, itching, burning, or bleeding. Aug, Dermatofibroma (ICD-10 - D23.9) Benign-appearing today. Reassurance provided, however patient was educated moles can foreign exchange trader time. ABCDE education performed. Patient instructed to return for any changes to the mole to include size, color, itching, burning, or bleeding. Aug, Skin tag (ICD-10 - L91.8) Benign-appearing today. Reassurance provided, however patient was educated moles can foreign exchange trader time. ABCDE education performed. Patient instructed to return for any changes to the mole to include size, color, itching, burning, or bleeding. Aug, Vitiligo (ICD-10 - L80) Aug, Nevus of neck (ICD-10 - D22.4) Benign-appearing today. Reassurance provided, however patient was educated moles can foreign exchange trader time. ABCDE education performed. Patient instructed to return for any changes to the mole to include size, color, itching, burning, or bleeding. Aug, Screening, malignant neoplasm, skin (ICD-10 - Z1 2.83) PLAN OF TREATMENT Treatment Notes Assessment Notes Clinical Notes Nevus, halo Benign-appearing tod ay. Reassurance provided, however patient was educated moles can foreign exchange trader time. ABCDE education performed. Patient instructed to return for any changes to the mole to include size, color, itching, burning, or bleeding. Dermatofibroma Benign-appearing tod ay. Reassurance provided, however patient was educated moles can foreign exchange trader time. ABCDE education performed. Patient instructed to return for any changes to the mole to include size, color, itching, burning, or bleeding. Skin tag Benign-appearing tod ay. Reassurance provided, however patient was educated moles can foreign exchange trader time. ABCDE education performed. Patient instructed to return for any changes to the mole to include size, color, itching, burning, or bleeding. Nevus of neck Benign-appearing tod ay. Reassurance provided, however patient was educated moles can foreign exchange trader time. ABCDE education performed. Patient instructed to return for any changes to the mole to include size, color, itching, burning, or bleeding. Next Appt Details Provider Name:Jesse Trejo, 11-23 03:30:00 PM, [address] [place] [address], [id number], Provider Name:Jesse Trejo, 12-14 07:30:00 AM, [address] [place] [address], [id number], Insurance Providers Payer Name Payer Address Payer Phone Insured Name Patient Relati onship to Insured Coverage Start Date Coverage End Date BCBS JOSÉ MIGUEL VALENCIA PPO [phone] [facility] [place] [address] NAYLA KIM
--- OUTSIDE RECORDS SUMMARY | 2020-11-12 14:29 | CCD | Continuity of Care Document ---
Author Author Ashlee CRUZ Organization Unknown Address [address] [place] [address] Phone [phone] Care Team Providers Care Chief Crew Scheduler Name Role Phone Emilee Cruz AUTM [phone] Problems Active Problems Provider Date Migraine ELTON [...] Provide r Date Vitamin D (Ergocalciferol) 1.25mg (29041 Ut) Capsules take 1 capsule by mouth [...] H/L Range Note Laboratory test finding 10/05/2020 [facility] Erythrocyte Sedimentation Rate 6 mm/hr Normal 0-30 Rheumatoid Factor Quant < 10.0 IU/mL Normal <15.0 Antinuclear Antibodies 10/05/2020 [facility] Antinuclear Antibodies Direct Negative Normal Negative 1 CBC With Differential 10/05/2020 [facility] White Blood Count 6.6 10 Normal [...] 36.0-66.0 Lymph % 33.9 % Normal 24.0-44.0 Hemphill % 8.3 % High 0.0-5.0 Eos % 4.1 % High 0.0-3.0 Baso % 1.5 % High 0.0-1.0 Immature Granulocyte % 0.2 % Normal 0-3.0 Nucleated Red Blood Cell % 0.0 % Normal 0-0 Neutrophils # 3.4 10 Normal 1.5-8.5 Lymph # 2.2 10 Normal 1.5-5.0 Hemphill # 0.6 10 Normal 0.0-0.8 Eos # 0.3 10 Normal 0.0-0.5 Baso # 0.1 10 Normal 0.0-0.2 Hemoglobin A1c 10/05/2020 [facility] Hemoglobin A1c 5.9 % Normal 2 Estimated Average Glucose 123 mg/dL High 60-110 Comprehensive Metabolic Profil 10/05/2020 [facility] Glucose, Fasting 110 mg/dL High 70-100 [...] Ratio 1.6 Normal 1.2-2.2 Lipid Panel 10/05/2020 [facility] Triglycerides Level 184 mg/dL High <150 Cholesterol Level 240 mg/dL High <200 HDL Cholesterol 63 mg/dL Normal >40 LDL Cholesterol 140 mg/dL High <100 Non-HDL-C 177 mg/dL Normal Cholesterol Risk Ratio 3.809 Normal <5 Laboratory test finding 10/05/2020 [facility] Thyroid Stimulating Hormone 2.690 uIU/ML Normal 0.358-3.740 Total 25(Oh) Vitamin D 34.4 NG/ML Normal 30.0-100.0 1 Performed at: RN - [facility] [address] [id number] L[employer] Teacher: Geraldine Martinez MD, Phone: [phone] 2 REFERENCE RANGES: <=5.6% NORMAL 5.7-6.4% SUGGESTS IMPAIRED GLUCOSE META BOLISM/PREDIABETIC >= 6.5% ABNORMAL 3 Units are mL/min/1.73 m2 Chronic Kidney Disease Staging per NKF: Stage I & II GFR >=60 Normal to Mildly Decreased Stage III GFR 30-59 Moderately Decreased Stage IV GFR 15-29 Severely Decreased Stage V GFR <15 Very Little GFR Left ESRD GFR <15 on PRINCIPAL ANDROID DEVELOPER Procedures Date Code Description Status 10/07/2020 22048 Admin Patient Focused Health Ris k Assessment [...] E03.9 Hypothyroidism, unspecified ELTON Presley, PNP 10/07/2020 N62 Hypertrophy of breast ELTON Presley, PNP 10/07/2020 Z79.899 Other assisted (current) drug t herapy ELTON Presley, PNP [...] to monitor through periodic blood work. * N62 Hypertrophy of breast* Comments:* She was given a referral to [facility], Dr. Pizano to evaluate further.We will continue to monitor. * Referral:* No Doctor Selected * Z79.899 Other assisted (current) drug therapy* [...]
--- OUTSIDE RECORDS SUMMARY | 2020-11-12 14:30 | CCD ---
Author Author [facility] Organization [facility] Address Unknown Phone Unavailable Care Team Providers Care Remote Advisor Name Role Phone Yovani Cook Unavailable Unavailable TricYovani singh Unavailable Unavailable Yovani Cook Unavailable Unavailable Yovani Cook Unavailable Unavailable Yovani Cook Unavailable Unavailable TricYovani singh Unavailable Unavailable TrickeyYovani Unavailable Unavailable TricYovani singh Unavailable Unavailable TricYovani singh Unavailable Unavailable Trickey, J Maryse PA Unavailable Unavailable Trickey, J Maryse PA Unavailable Unavailable Trickey, J Maryse PA Unavailable Unavailable Trickey, J Maryse PA Unavailable Unavailable Trickey, J Maryse PA Unavailable Unavailable Trickey, J Maryse PA Unavailable Unavailable Trickey, J Maryse PA Unavailable Unavailable Trickey, J Maryse PA Unavailable Unavailable Trickey, J Maryse PA Unavailable Unavailable Trickey, J Maryse PA Unavailable Unavailable Trickey, J Maryse PA Unavailable Unavailable Trickey, J Maryse PA Unavailable Unavailable Trickey, J Maryse PA Unavailable Unavailable Trickey, J Maryse PA Unavailable Unavailable Trickey, J Maryse PA Unavailable Unavailable Trickey, J Maryse PA Unavailable Unavailable Trickey, J Maryse PA Unavailable Unavailable Trickey, J Maryse PA Unavailable Unavailable Trickey, J Maryse PA Unavailable Unavailable Trickey, J Maryse PA Unavailable Unavailable Trickey, J Maryse PA Unavailable Unavailable Trickey, J Maryse PA Unavailable Unavailable Trickey, J Maryse PA Unavailable Unavailable Trickey, J Maryse PA Unavailable Unavailable Trickey, J Maryse PA Unavailable Unavailable Trickey, J Maryse PA Unavailable Unavailable Trickey, J Maryse PA Unavailable Unavailable Trickey, J Maryse PA Unavailable Unavailable Trickey, J Maryse PA Unavailable Unavailable Trickey, J Maryse PA Unavailable Unavailable Trickey, J Maryse PA Unavailable Unavailable Trickey, J Maryse PA Unavailable Unavailable Trickey, J Maryse PA Unavailable Unavailable Trickey, J Maryse PA Unavailable Unavailable Trickey, J Maryse PA Unavailable Unavailable Trickey, J Maryse PA Unavailable Unavailable Trickey, J Maryse PA Unavailable Unavailable Trickey, J Maryse PA Unavailable Unavailable Trickey, J Maryse PA Unavailable Unavailable GORGE NESS MD Unavailable Unavailable GORGE NESS MD Unavailable Unavailable GORGE NESS MD Unavailable Unavailable GORGE NESS MD Unavailable Unavailable GORGE NESS MD Unavailable Unavailable GORGE NESS MD Unavailable Unavailable GORGE NESS MD Unavailable Unavailable GORGE NESS MD Unavailable Unavailable GORGE NESS MD Unavailable Unavailable GORGE NESS MD Unavailable Unavailable GORGE NESS MD Unavailable Unavailable GORGE NESS MD Unavailable Unavailable GORGE NESS MD Unavailable Unavailable GORGE NESS MD Unavailable Unavailable GORGE NESS MD Unavailable Unavailable GORGE NESS MD Unavailable Unavailable GORGE NESS MD Unavailable Unavailable GORGE NESS MD Unavailable Unavailable GORGE NESS MD Unavailable Unavailable GORGE NESS MD Unavailable Unavailable GORGE NESS MD Unavailable Unavailable GORGE NESS MD Unavailable Unavailable GORGE NESS MD Unavailable Unavailable GORGE NESS MD Unavailable Unavailable GORGE NESS MD Unavailable Unavailable GORGE NESS MD Unavailable Unavailable GORGE NESS MD Unavailable Unavailable GORGE NESS MD Unavailable Unavailable GORGE NESS MD Unavailable Unavailable GORGE NESS MD Unavailable Unavailable GORGE NESS MD Unavailable Unavailable GORGE NESS MD Unavailable Unavailable GORGE NESS MD Unavailable Unavailable GORGE NESS MD Unavailable Unavailable GORGE NESS MD Unavailable Unavailable GORGE NESS MD Unavailable Unavailable GORGE NESS MD Unavailable Unavailable GORGE NESS MD Unavailable Unavailable GORGE NESS MD Unavailable Unavailable GORGE NESS MD Unavailable Unavailable Trickey, J Maryse PA Unavailable Unavailable Trickey, J Maryse PA Unavailable Unavailable Trickey, J Maryse PA Unavailable Unavailable Trickey, J Maryse PA Unavailable Unavailable Trickey, J Maryse PA Unavailable Unavailable Trickey, J Maryse PA Unavailable Unavailable Trickey, J Maryse PA Unavailable Unavailable Trickey, J Maryse PA Unavailable Unavailable Trickey, J Maryse PA Unavailable Unavailable Trickey, J Maryse PA Unavailable Unavailable Trickey, J Maryse PA Unavailable Unavailable Trickey, J Maryse PA Unavailable Unavailable Trickey, J Maryse PA Unavailable Unavailable Trickey, J Maryse PA Unavailable Unavailable Trickey, J Maryse PA Unavailable Unavailable Trickey, J Maryse PA Unavailable Unavailable Trickey, J Maryse PA Unavailable Unavailable Trickey, J Maryse PA Unavailable Unavailable Trickey, J Maryse PA Unavailable Unavailable Trickey, J Maryse PA Unavailable Unavailable Trickey, J Maryse PA Unavailable Unavailable Trickey, J Maryse PA Unavailable Unavailable Trickey, J Maryse PA Unavailable Unavailable Trickey, J Maryse PA Unavailable Unavailable Trickey, J Maryse PA Unavailable Unavailable Trickey, J Maryse PA Unavailable Unavailable Trickey, J Maryse PA Unavailable Unavailable Trickey, J Maryse PA Unavailable Unavailable Trickey, J Maryse PA Unavailable Unavailable Trickey, J Maryse PA Unavailable Unavailable Trickey, J Maryse PA Unavailable Unavailable Trickey, J Maryse PA Unavailable Unavailable Trickey, J Maryse PA Unavailable Unavailable Trickey, J Maryse PA Unavailable Unavailable Trickey, J Maryse PA Unavailable Unavailable Trickey, J Maryse PA Unavailable Unavailable Trickey, J Maryse PA Unavailable Unavailable Trickey, J Maryse PA Unavailable Unavailable Trickey, J Maryse PA Unavailable Unavailable Trickey, J Maryse PA Unavailable Unavailable Trickey, J Maryse PA Unavailable Unavailable Trickey, J Maryse PA Unavailable Unavailable Trickey, J Maryse PA Unavailable Unavailable Trickey, J Maryse PA Unavailable Unavailable Trickey, J Maryse PA Unavailable Unavailable Trickey, J Maryse PA Unavailable Unavailable Trickey, J Maryse PA Unavailable Unavailable Trickey, J Maryse PA Unavailable Unavailable RING, K NOEMÍ PA Unavailable Unavailable RING, K NOEMÍ PA Unavailable Unavailable RING, K NOEMÍ PA Unavailable Unavailable RING, K NOEMÍ PA Unavailable Unavailable RING, K NOEMÍ PA Unavailable Unavailable RING, K NOEMÍ PA Unavailable Unavailable RING, K NOEMÍ PA Unavailable Unavailable RING, K NOEMÍ PA Unavailable Unavailable RING, K NOEMÍ PA Unavailable Unavailable RING, K NOEMÍ PA Unavailable Unavailable RING, K NOEMÍ PA Unavailable Unavailable RING, K NOEMÍ PA Unavailable Unavailable RING, K NOEMÍ PA Unavailable Unavailable RING, K NOEMÍ PA Unavailable Unavailable RING, K NOEMÍ PA Unavailable Unavailable RING, K NOEMÍ PA Unavailable Unavailable RING, K NOEMÍ PA Unavailable Unavailable RING, K NOEMÍ PA Unavailable Unavailable RING, K NOEMÍ PA Unavailable Unavailable RING, K NOEMÍ PA Unavailable Unavailable RING, K NOEMÍ PA Unavailable Unavailable Lupe BOSWELL MD Unavailable Unavailable Lupe BOSWELL MD Unavailable Unavailable Lupe BOSWELL MD Unavailable Unavailable Lupe BOSWELL MD Unavailable Unavailable Lupe BOSWELL MD Unavailable Unavailable Lupe BOSWELL MD Unavailable Unavailable Lupe BOSWELL MD Unavailable Unavailable Lupe BOSWELL MD Unavailable Unavailable Lupe BOSWELL MD Unavailable Unavailable Lupe BOSWELL MD Unavailable Unavailable Lupe BOSWELL MD Unavailable Unavailable Lupe BOSWELL MD Unavailable Unavailable ANDREIA, K GRACIA SMITH Unavailable Unavailable ANDREIA, K GRACIA SMITH Unavailable Unavailable ANDREIA, K GRACIA SMITH Unavailable Unavailable ANDREIA, K GRACIA SMITH Unavailable Unavailable ANDREIA, K GRACIA SMITH Unavailable Unavailable ANDREIA, K GRACIA SMITH Unavailable Unavailable ANDREIA, K GRACIA SMITH Unavailable Unavailable ANDREIA, K GRACIA SMITH Unavailable Unavailable ANDREIA, K GRACIA SMITH Unavailable Unavailable ANDREIA, K GRACIA SMITH Unavailable Unavailable ANDREIA, K GRACIA SMITH Unavailable Unavailable ANDREIA, K GRACIA SMITH Unavailable Unavailable ANDREIA, K GRACIA SMITH Unavailable Unavailable ANDREIA, K GRACIA SMITH Unavailable Unavailable ANDREIA, K GRACIA SMITH Unavailable Unavailable ANDREIA, K GRACIA SMITH Unavailable Unavailable ANDREIA, K GRACIA SMITH Unavailable Unavailable ANDREIA, K GRACIA SMITH Unavailable Unavailable ANDREIA, K GRACIA SMITH Unavailable Unavailable ANDREIA, K GRACIA SMITH Unavailable Unavailable ANDREIA, K GRACIA SMITH Unavailable Unavailable ANDREIA, K GRACIA SMITH Unavailable Unavailable ANDREIA, K GRACIA SMITH Unavailable Unavailable ANDREIA, K GRACIA SMITH Unavailable Unavailable ANDREIA, K GRACIA SMITH Unavailable Unavailable ANDREIA, K GRACIA SMITH Unavailable Unavailable ANDREIA, K GRACIA SMITH Unavailable Unavailable ANDREIA, K GRACIA SMITH Unavailable Unavailable ANDREIA, K GRACIA SMITH Unavailable Unavailable ANDREIA, K GRACIA SMITH Unavailable Unavailable ANDREIA, K GRACIA SMITH Unavailable Unavailable ANDREIA, K GRACIA SMITH Unavailable Unavailable ANDREIA, K GRACIA SMITH Unavailable Unavailable ANDREIA, K GRACIA SMITH Unavailable Unavailable ANDREAI, K GRACIA SMITH Unavailable Unavailable ANDREIA, K GRACIA SMITH Unavailable Unavailable ANDREIA, K GRACIA SMITH Unavailable Unavailable ANDREIA, K GRACIA SMITH Unavailable Unavailable ANDREIA, K GRACIA SMITH Unavailable Unavailable ANDREIA, K GRACIA SMITH Unavailable Unavailable ANDREIA, K GRACIA SMITH Unavailable Unavailable ANDREIA, K GRACIA MD Unavailable Unavailable Anthony, Alley Emilee ANP-BC Unavailable Unavailable Anthony, Alley Emilee ANP-BC Unavailable Unavailable Anthony, Alley Emilee ANP-BC Unavailable Unavailable Anthony, Alley Emilee ANP-BC Unavailable Unavailable Anthony, Alley Emilee ANP-BC Unavailable Unavailable Anthony, Alley Emilee ANP-BC Unavailable Unavailable Anthony, Alley Emilee ANP-BC Unavailable Unavailable Anthony, Alley Emilee ANP-BC Unavailable Unavailable Anthony, Alley Emilee ANP-BC Unavailable Unavailable Anthony, Alley Emilee ANP-BC Unavailable Unavailable Anthony, Alley Emilee ANP-BC Unavailable Unavailable Anthony, Alley Emilee ANP-BC Unavailable Unavailable Anthony, Alley Emilee ANP-BC Unavailable Unavailable Anthony, Alley Emilee ANP-BC Unavailable Unavailable Anthony, Alley Emilee ANP-BC Unavailable Unavailable Anthony, Alley Emilee ANP-BC Unavailable Unavailable Anthony, Alley Emilee ANP-BC Unavailable Unavailable Anthony, Alley Emilee ANP-BC Unavailable Unavailable Anthony, Alley Emilee ANP-BC Unavailable Unavailable Anthony, Alley Emilee ANP-BC Unavailable Unavailable Anthony, Alley Emilee ANP-BC Unavailable Unavailable Anthony, Alley Emilee ANP-BC Unavailable Unavailable Anthony, Alley Emilee ANP-BC Unavailable Unavailable Anthony, Alley Emilee ANP-BC Unavailable Unavailable Anthony, Alley Emilee ANP-BC Unavailable Unavailable Anthony, Alley Emilee ANP-BC Unavailable Unavailable Anthony, Alley Emilee ANP-BC Unavailable Unavailable Anthony, Alley Emilee ANP-BC Unavailable Unavailable Anthony, Alley Emilee ANP-BC Unavailable Unavailable Anthony, Alley Emilee ANP-BC Unavailable Unavailable Anthony, Alley Emilee ANP-BC Unavailable Unavailable Anthony, Alley Emilee ANP-BC Unavailable Unavailable Anthony, Alley Emilee ANP-BC Unavailable Unavailable Anthony, Alley Emilee ANP-BC Unavailable Unavailable Anthony, Alley Emilee ANP-BC Unavailable Unavailable Anthony, Alley Emilee ANP-BC Unavailable Unavailable Anthony, Alley Emilee ANP-BC Unavailable Unavailable Anthony, Alley Emilee ANP-BC Unavailable Unavailable Anthony, Alley Emilee ANP-BC Unavailable Unavailable Anthony, Alley Emilee ANP-BC Unavailable Unavailable Anthony, Alley Emilee ANP-BC Unavailable Unavailable Anthony, Alley Emilee ANP-BC Unavailable Unavailable Anthony, Alley Emilee ANP-BC Unavailable Unavailable Anthony, Alley Emilee ANP-BC Unavailable Unavailable Anthony, Alley Emilee ANP-BC Unavailable Unavailable Anthony, Alley Emilee ANP-BC Unavailable Unavailable Anthony, Alley Emilee ANP-BC Unavailable Unavailable Anthony, Alley Emilee ANP-BC Unavailable Unavailable Anthony, Alley Emilee ANP-BC Unavailable Unavailable Anthony, Alley Emilee ANP-BC Unavailable Unavailable Anthony, Alley Emilee ANP-BC Unavailable Unavailable Anthony, Alley Emilee ANP-BC Unavailable Unavailable Anthony, Alley Emilee ANP-BC Unavailable Unavailable Anthony, Alley Emilee ANP-BC Unavailable Unavailable Anthony, Alley Emilee ANP-BC Unavailable Unavailable Anthony, Alley Emilee ANP-BC Unavailable Unavailable Anthony, Alley Emilee ANP-BC Unavailable Unavailable Anthony, Alley Emilee ANP-BC Unavailable Unavailable Anthony, Alley Emilee ANP-BC Unavailable Unavailable Anthony, Alley Emilee ANP-BC Unavailable Unavailable Anthony, Alley Emilee ANP-BC Unavailable Unavailable Anthony, Alley Emilee ANP-BC Unavailable Unavailable Anthony, Alley Emilee ANP-BC Unavailable Unavailable Anthony, Alley Emilee ANP-BC Unavailable Unavailable Navarrete, Loly TOMBSTONE CARVER Unavailable Unavailable Navarrete, Loly TOMBSTONE CARVER Unavailable Unavailable Navarrete, Loly TOMBSTONE CARVER Unavailable Unavailable Navarrete, Loly TOMBSTONE CARVER Unavailable Unavailable Navarrete, Loly TOMBSTONE CARVER Unavailable Unavailable Navarrete, Loly TOMBSTONE CARVER Unavailable Unavailable Navarrete, Loly TOMBSTONE CARVER Unavailable Unavailable Navarrete, Loly TOMBSTONE CARVER Unavailable Unavailable Navarrete, Loly TOMBSTONE CARVER Unavailable Unavailable Navarrete, Loly TOMBSTONE CARVER Unavailable Unavailable Navarrete, Loly TOMBSTONE CARVER Unavailable Unavailable Anthony, Alley Emilee ANP-BC Unavailable Unavailable Anthony, Alley Emilee ANP-BC Unavailable Unavailable Anthony, Alley Emilee ANP-BC Unavailable Unavailable Anthony, Alley Emilee ANP-BC Unavailable Unavailable Anthony, Alley Emilee ANP-BC Unavailable Unavailable Anthony, Alley Emilee ANP-BC Unavailable Unavailable Anthony, Alley Emilee ANP-BC Unavailable Unavailable Anthony, Alley Emilee ANP-BC Unavailable Unavailable Anthony, Alley Emilee ANP-BC Unavailable Unavailable Anthony, Alley Emilee ANP-BC Unavailable Unavailable Anthony, Alley Emilee ANP-BC Unavailable Unavailable Anthony, Alley Emilee ANP-BC Unavailable Unavailable Anthony, Alley Emilee ANP-BC Unavailable Unavailable Anthony, Alley Emilee ANP-BC Unavailable Unavailable Anthony, Laley Emilee ANP-BC Unavailable Unavailable Anthony, Alley Emilee ANP-BC Unavailable Unavailable Anthony, Alley Emilee ANP-BC Unavailable Unavailable Anthony, Alley Emilee ANP-BC Unavailable Unavailable Anthony, Alley Emilee ANP-BC Unavailable Unavailable Anthony, Alley Emilee ANP-BC Unavailable Unavailable Anthony, Alley Emilee ANP-BC Unavailable Unavailable Anthony, Alley Emilee ANP-BC Unavailable Unavailable Anthony, Alley Emilee ANP-BC Unavailable Unavailable Anthony, Alley Emilee ANP-BC Unavailable Unavailable Anthony, Alley Emilee ANP-BC Unavailable Unavailable Anthony, Alley Emilee ANP-BC Unavailable Unavailable Anthony, Alley Emilee ANP-BC Unavailable Unavailable Anthony, Alley Emilee ANP-BC Unavailable Unavailable Anthony, Alley Emilee ANP-BC Unavailable Unavailable Anthony, Alley Emilee ANP-BC Unavailable Unavailable Anthony, Alley Emilee ANP-BC Unavailable Unavailable Anthony, Alley Emilee ANP-BC Unavailable Unavailable Anthony, Alley Emilee ANP-BC Unavailable Unavailable Anthony, Alley Emilee ANP-BC Unavailable Unavailable Anthony, Alley Emilee ANP-BC Unavailable Unavailable Anthony, Alley Emilee ANP-BC Unavailable Unavailable Anthony, Alley Emilee ANP-BC Unavailable Unavailable Anthony, Alley Emilee ANP-BC Unavailable Unavailable Anthony, Alley Emilee ANP-BC Unavailable Unavailable Anthony, Alley Emilee ANP-BC Unavailable Unavailable Anthony, Alley Emilee ANP-BC Unavailable Unavailable Anthony, Alley Emilee ANP-BC Unavailable Unavailable Anthony, Alley Emilee ANP-BC Unavailable Unavailable Anthony, Alley Emilee ANP-BC Unavailable Unavailable Anthony, Alley Emilee ANP-BC Unavailable Unavailable Anthony, Alley Emilee ANP-BC Unavailable Unavailable Anthony, Alley Emilee ANP-BC Unavailable Unavailable Anthony, Alley Emilee ANP-BC Unavailable Unavailable Anthony, Alley Emilee ANP-BC Unavailable Unavailable Anthony, Alley Emilee ANP-BC Unavailable Unavailable Anthony, Alley Emilee ANP-BC Unavailable Unavailable Anthony, Alley Emilee ANP-BC Unavailable Unavailable Anthony, Alley Emilee ANP-BC Unavailable Unavailable Anthony, Alley Emilee ANP-BC Unavailable Unavailable Anthony, Alley Emilee ANP-BC Unavailable Unavailable Anthony, Alley Emilee ANP-BC Unavailable Unavailable Anthony, Alley Emilee ANP-BC Unavailable Unavailable Anthony, Alley Emilee ANP-BC Unavailable Unavailable Anthony, Alley Emilee ANP-BC Unavailable Unavailable Anthony, Alley Emilee ANP-BC Unavailable Unavailable Anthony, Alley Emilee ANP-BC Unavailable Unavailable Anthony, Alley Emilee ANP-BC Unavailable Unavailable Anthony, Alley Emilee ANP-BC Unavailable Unavailable Anthony, Alley Emilee ANP-BC Unavailable Unavailable Anthony, Alley Emilee ANP-BC Unavailable Unavailable Anthony, Alley Emilee ANP-BC Unavailable Unavailable Anthony, Alley Emilee ANP-BC Unavailable Unavailable Anthony, Alley Emilee ANP-BC Unavailable Unavailable Anthony, Alley Emilee ANP-BC Unavailable Unavailable Anthony, Alley Emilee ANP-BC Unavailable Unavailable Anthony, Alley Emilee ANP-BC Unavailable Unavailable Anthony, Alley Meilee ANP-BC Unavailable Unavailable Anthony, Alley Emilee ANP-BC Unavailable Unavailable Anthony, Alley Emilee ANP-BC Unavailable Unavailable Anthony, Alley Emilee ANP-BC Unavailable Unavailable Anthony, Alley Emilee ANP-BC Unavailable Unavailable Anthony, Alley Emilee ANP-BC Unavailable Unavailable Anthony, Alley Emilee ANP-BC Unavailable Unavailable Anthony, Alley Emilee ANP-BC Unavailable Unavailable Anthony, Alley Emilee ANP-BC Unavailable Unavailable Anthony, Alley Emilee ANP-BC Unavailable Unavailable Anthony, Alley Emilee ANP-BC Unavailable Unavailable Anthony, Alley Emilee ANP-BC Unavailable Unavailable Anthony, Alley Emilee ANP-BC Unavailable Unavailable Anthony, Alley Emilee ANP-BC Unavailable Unavailable Anthony, Alley Emilee ANP-BC Unavailable Unavailable Anthony, Alley Emilee ANP-BC Unavailable Unavailable Anthony, Alley Emilee ANP-BC Unavailable Unavailable Anthony, Alley Emilee ANP-BC Unavailable Unavailable Anthony, Alley Emilee ANP-BC Unavailable Unavailable Anthony, Alley Emilee ANP-BC Unavailable Unavailable Anthony, Alley Emilee ANP-BC Unavailable Unavailable Anthony, Alley Emilee ANP-BC Unavailable Unavailable Anthony, Alley Emilee ANP-BC Unavailable Unavailable Anthony, Alley Emilee ANP-BC Unavailable Unavailable Anthony, Alley Emilee ANP-BC Unavailable Unavailable Anthony, Alley Emilee ANP-BC Unavailable Unavailable Anthony, Alley Emilee ANP-BC Unavailable Unavailable Anthony, Alley Emilee ANP-BC Unavailable Unavailable Anthony, Alley Emilee ANP-BC Unavailable Unavailable Anthony, Alley Emilee ANP-BC Unavailable Unavailable Anthony, Alley Emilee ANP-BC Unavailable Unavailable Anthony, Alley Emilee ANP-BC Unavailable Unavailable Anthony, Alley Emilee ANP-BC Unavailable Unavailable Anthony, Alley Emilee ANP-BC Unavailable Unavailable Anthony, Alley Emilee ANP-BC Unavailable Unavailable Anthony, Alley Emilee ANP-BC Unavailable Unavailable Anthony, Alley Emilee ANP-BC Unavailable Unavailable Anthony, Alley Emilee ANP-BC Unavailable Unavailable Anthony, Alley Emilee ANP-BC Unavailable Unavailable Anthony, Alley Emilee ANP-BC Unavailable Unavailable Anthony, Alley Emilee ANP-BC Unavailable Unavailable Anthony, Alley Emilee ANP-BC Unavailable Unavailable Anthony, Alley Emilee ANP-BC Unavailable Unavailable Anthony, Alley Emilee ANP-BC Unavailable Unavailable Anthony, Alley Emilee ANP-BC Unavailable Unavailable Anthony, Alley Emilee ANP-BC Unavailable Unavailable Anthony, Alley Emilee ANP-BC Unavailable Unavailable Anthony, Alley Emilee ANP-BC Unavailable Unavailable Anthony, Alley Emilee ANP-BC Unavailable Unavailable Anthony, Alley Emilee ANP-BC Unavailable Unavailable Anthony, Alley Emilee ANP-BC Unavailable Unavailable Anthony, Alley Emilee ANP-BC Unavailable Unavailable Anthony, Alley Emilee ANP-BC Unavailable Unavailable Anthony, Alley Emilee ANP-BC Unavailable Unavailable Anthony, Alley Emilee ANP-BC Unavailable Unavailable Anthony, Alley Emilee ANP-BC Unavailable Unavailable Antohny, Alley Emilee ANP-BC Unavailable Unavailable Philly Garcia Unavailable Unavailable Philly Garcia PA Unavailable Unavailable Philly Garcia Unavailable Unavailable Philly Garcia PA Unavailable Unavailable Philly Garcia Unavailable Unavailable Philly Garcia PA Unavailable Unavailable Philly Garcia PA Unavailable Unavailable Garcia, Philly MatthewsElisabeth PA Unavailable Unavailable Garcia, Philly Rodriguezmoi LONGORIA Unavailable Unavailable Garcia, Philly Rodriguezmoi LONGORIA Unavailable Unavailable Re-disclosure Warning The records that you are about to access may contain information from federally-assisted alcohol or drug abuse programs. If such information is present, then the following federally mandated warning applies: This information has been disclosed to you from records protected by federal confidentiality rules (42 CFR part 2). The federal rules prohibit you from making any further disclosure of this information unless further disclosure is expressly permitted by the written consent of the person to whom it pertains or as otherwise permitted by 42 CFR part 2. A general authorization for the release of medical or other information is NOT sufficient for this purpose. The Federal rules restrict any use of the information to criminally investigate or prosecute any alcohol or drug abuse patient.The records that you are about to access may contain highly sensitive health information, the redisclosure of which is protected by Article 27-F of the [facility] Public Health law. If you continue you may have access to information: Regarding HIV / AIDS; Provided by facilities licensed or operated by the [facility] Office of Mental Health; or Provided by the [facility] Office for People With Developmental Disabilities. If such information is present, then the following [facility] mandated warning applies: This information has been disclosed to you from confidential records which are protected by state law. State law prohibits you from making any further disclosure of this information without the specific written consent of the person to whom it pertains, or as otherwise permitted by law. Any unauthorized further disclosure in violation of state law may result in a fine or residential sentence or both. A general authorization for the release of medical or other information is NOT sufficient authorization for further disc losure. Allergies and Adverse Reactions Type Description Substance Reaction Status Data Source(s ) Drug Allergy NKDA NKDA [facility] ([facility], [facility]) Family History Family Member Name Family Member Gender Family Member Status Date o f Status Description Data Source(s) Unknown Unknown Problem [facility] ([facility], [facility]) mother,mgf,pgm Encounters Encounter Providers Location Date Indications Data Source(s ) Outpatient Attender: GRACIA B[facility]WELL [facility]: NO[facility] Smart Primary 10/31/2020 09:35:00 AM EST [facility] ([facility]) Outpatient Attender: Emilee Cruz ANP- 09/18 09:58:00 AM EST - 10/07/2020 09:58:00 AM EST [facility] Outpatient Attender: Elisabeth Smart Prim darrin 09/08/2020 04:45:00 PM EST [facility] ([facility]) Office Visit Attender: Maryse LONGORIA Main office - [facility] 08/30/2020 09:45:00 AM EST [facility] ([facility]) Outpatient [address] [facility] [id number] 08/17/2020 12:00:00 AM EST eCW1 ([facility]) Outpatient Attender: Loly Smart [facility] 07/09/2020 12:50:00 PM EDT [facility] ([facility]) Outpatient Attender: Maryse LONGORIA Main office - [facility] 05/31/2020 02:15:00 PM EDT [facility] ([facility], PC) ( GYNANN) [facility] Yearly FINANCIAL AID Exam [address] [place] [address] 04/08/2020 12:00:00 AM EDT eCW1 ([facility]) Unknown [address] [facility] [address] 03/08/2020 12:00:00 AM EDT eCW1 ([facility]) Outpatient Attender: GORGE NESS MD Main Office 02/24/2020 10:45:00 AM EDT MED[facility] ([facility]) Office Visit Attender: Maryse LONGORIA Main office - [facility] 02/20/2020 09:30:00 AM EDT MEDENT ([facility]) Outpatient Attender: GORGE NESS MD Main Office 02/16/2020 09:30:00 AM EDT [facility] ([facility]) [facility] [address] [place] [id number] 01/23/2020 12:00:00 AM EDT eCW1 (Count includes the [facility]) Outpatient Referrer: Emilee CONDE 12/31/2019 01:12:00 PM EDT [facility] Outpatient Referrer: Emilee CONDE 12/31/2019 01:10:00 PM EDT [facility] Outpatient Referrer: Emilee CONDE 12/31/2019 10:22:00 AM EDT [facility] Outpatient Referrer: Emilee CONDE 12/31/2019 09:20:00 AM EDT [facility] Outpatient Referrer: Emilee CONDE 12/30/2019 03:10:00 PM EDT [facility] Outpatient Referrer: Maryse LONGORIA 12/30/2019 03:08:00 P M EDT [facility] Imaging Outpatient Attender: Emilee CONDE 12/16 01:48:00 PM EDT - 12/29/2019 01:48:00 PM EDT [facility] Outpatient Attender: Maryse LONGORIA [facility] 10/30/2019 12:00:00 PM EST MEDENT ([facility] ) Outpatient Attender: Emilee CONDE 10/18 09:38:00 AM EST - 10/30/2019 09:38:00 AM EST [facility] Outpatient Attender: Emilee CONDE Family [facility] 10/18 08:40:00 AM EST [facility] ([facility]) [facility] [address] [place] [address] 10/28/2019 12:00:00 AM EST eCW1 (Count includes the [facility]) [address] [address] 10/28/2019 12:00:00 AM EST eCW1 ([facility]) Outpatient Attender: NOEMÍ [place] 10/02/2019 05:15:00 PM EST MEDENT ([facility]) Medications Medication Brand Name Start Date Product Form Dose Route Admi nistrative Instructions Pharmacy Instructions Status Indications Reaction Description Data Source(s) Sulfamethoxazole 800 MG / Trimethoprim 160 MG Oral Tablet [B actrim] Bactrim DS 10/31/2020 12:00:00 AM EST ORAL active MEDENT ([facility]) Prednisone 20 MG Oral Tablet Prednisone 10/31/2020 12:00:00 AM EST ORAL active MEDENT ([facility]) Fluconazole 150 MG Oral Tablet [Diflucan] Diflucan 10/31/2020 1 2:00:00 AM EST ORAL active MEDENT ([facility]) Sulfamethoxazole 800 MG / Trimethoprim 160 MG Oral Tab let Sulfamethoxazole/Trimethoprim DS 09/08/2020 12:00:00 AM EST ORAL completed MEDENT ([facility]) Sulfamethoxazole 800 MG / Trimethoprim 160 MG Oral Tab let 800-160 mg SULFAMETHOXAZOLE/TRIMETHOPRIM 09/08/2020 12:00:00 AM EST tablet 14 TAKE ONE TABLET BY MOUTH TWICE A DAY FOR 7 DAYS TAKE ONE TABLET BY MOUTH TWICE A DAY FOR 7 DAYS SOLD: 09/08/2020 [facility] 20 mg 09/08/2020 12:00:00 AM EST tablet 10 TAKE ONE TABLET BY MOUTH TWICE A DAY FOR 5 DAYS TAKE ONE TABLET BY MOUTH TWICE A DAY FOR 5 DAYS SOLD: 2019 [facility] Prednisone 20 MG Oral Tablet Prednisone 09/08/2020 12:00:00 AM EST completed MEDENT ([facility]) Ergocalciferol 18506 UNT Oral Capsule Vitamin D (Ergocalcife rol) 09/03/2020 12:00:00 AM EST ORAL active M EDENT ([facility]) Polymyxin B 29917 UNT/ML / Trimethoprim 1 MG/ML Ophtha lmic Solution Polymyxin B Sulfate/Trimethoprim Sulfate 07/09/2020 12:00:00 AM EDT completed MEDENT ([facility]) Ketorolac Tromethamine 5 MG/ML Ophthalmic Solution Ketorolac Tromethamine 07/09/2020 12:00:00 AM EDT completed MEDENT ([facility]) Xray Left Foot And Ankle 05/31/2020 12:00:00 AM EDT completed MEDENT ([facility]) Amoxicillin 875 MG / Clavulanate 125 MG Oral Tablet Am oxicillin/Clavulanate Potassium 05/31/2020 12:00:00 AM EDT ORAL completed MEDENT ([facility]) Fluconazole 150 MG Oral Tablet [Diflucan] Diflucan 05/31/2020 1 2:00:00 AM EDT ORAL completed MEDENT ([facility] ) Triamcinolone Acetonide 1 MG/ML Topical Cream Triamcin olone Acetonide 0.1 % Triamcinolone Acetonide 0.1 % 03/11/2020 12:00:00 AM EDT active Triamcinolone Acetonide 0.1 % eCW1 ([facility]) Ergocalciferol 18018 UNT Oral Capsule [Drisdol] Drisdol 12/29/2019 12:00:00 AM EDT ORAL active MEDENT ([facility]) Prednisone 10 MG Oral Tablet Prednisone 12/29/2019 12:00:00 AM EDT active MEDENT ([facility]) Sulfamethoxazole 800 MG / Trimethoprim 160 MG Oral Tab let Sulfamethoxazole/Trimethoprim DS 12/29/2019 12:00:00 AM EDT ORAL active MEDENT ([facility]) Sucralfate 100 MG/ML Oral Suspension Sucralfate 11/04/2019 12:00:00 A M EST ORAL active MEDENT ([facility]) Sumatriptan 100 MG Oral Tablet [Imitrex] Imitrex 10/30/2019 12:00: 00 AM EST ORAL active MEDENT ([facility]) Fluconazole 150 MG Oral Tablet [Diflucan] Diflucan 10/02/2019 1 2:00:00 AM EST ORAL active MEDENT ([facility]) Sulfamethoxazole 800 MG / Trimethoprim 160 MG Oral Tablet [B actrim] Bactrim DS 10/02/2019 12:00:00 AM EST ORAL active MEDENT ([facility]) Prednisone 20 MG Oral Tablet Prednisone 10/02/2019 12:00:00 AM EST ORAL active MEDENT ([facility]) Meclizine Hydrochloride 25 MG Oral Tablet Meclizine HCL 06/18/2019 12:00:00 AM EDT ORAL completed MEDENT ([facility]) Zithromax Z-Cam Zithromax Z-Cam 06/18/2019 12:00:00 AM EDT ORAL completed MEDENT ([facility]) Anxiety active Anxiety MEDENT ([facility]) Insurance Providers Payer name Policy type / Coverage type Policy ID Covered democrat ID Covered democrat's relationship to tejeda Policy Tejeda Plan Information [place]/307 [id number] SP [id number] EXCELLUS C [id number] Self [id number] EXCELLUS Y [facility] BS [id number] [place] P[place] 302/307 [id number] SP [id number] EXCELLUS BCBS B [id number] S [id number] [place] PPO 302/307 [id number] SP [id number] BC/BS Of [place] Commercial [id number] Self [id number] [place] PPO 302/307 [id number] SP [id number] BC/BS Of [place] Commercial [id number] Self [id number] ANSI-Commercial [id number] BCBS/[employer] Commercial [id number] Self [id number] [employer] U/W Commercial [id number] Self [id number] ANSI-Commercial [id number] BC/BS Of [place] Commercial [id number] Self [id number] BC/BS Of [place] Commercial [id number] Self [id number] [facility] U[facility] Commercial [id number] Self [id number] BC/BS Of [place] Commercial [id number] Self [id number] BCBS/[employer] Commercial [id number] Self [id number] [place] 302/307 [id number] SP [id number] [place] 302/307 [id number] SP [id number] BC/BS Of [place] Commercial [id number] Self [id number] [employer] [facility] U/W Commercial [id number] Self [id number] [employer] [facility] U/W Commercial [id number] Self [id number] BC/BS Of [place] Commercial [id number] Self [id number] BCBS/[employer] Commercial [id number] Self [id number] BCBS/[employer] Commercial Self BC/BS Of [place] Commercial Self [facility] U/W Commercial Self EXCELLUS H [id number] Self [id number] No Ins/Self Pay Commercial Self SELF PAY UNAVAILABLE SP UNAVAILA BLE BC/BS Of [place] Commercial Self [place] P[place] 302/307 [id number] SP [id number] BCBS [place] 304/804 [id number] SP [id number] [place] PPO 302/307 [id number] SP [id number] [place] PPO 302/307 [id number] SP [id number] [place] PPO 302/307 [id number] SP [id number] [place] PPO 302/307 [id number] SP [id number] [employer] [id number] SP [id number] [employer] [id number] SP [id number] [employer] [id number] SP [id number] [employer]OM[employer] [id number] SP [id number] EXCELLUS BCBS P [id number] S [id number] Problems, Conditions, and Diagnoses Code Display Name Description Problem Type Effective Dates Data Source(s) Z86.018 [id number] Hx of dysplastic nevus Problem 03/12/2020 12:00:00 AM EDT eCW1 ([facility]) 75795186 Allergic rhinitis due to pollen Allergic rhiniti s due to pollen Problem 02/24/2020 12:00:00 AM EDT [facility] ([facility]) [id number] Chronic sinusitis Chronic sinusitis Problem 02/16/2020 12:00:00 AM EDT [facility] ([facility]) [id number] Allergic rhinitis due to house dust mite Allergic rhinitis due to house dust mite Problem 02/16/2020 12:00:00 AM EDT [facility] ([facility]) 57931044 Allergic rhinitis due to animals Allergic rhinit is due to animals Problem 02/16/2020 12:00:00 AM EDT [facility] ([facility]) L80 [id number] Vitiligo Problem 10/28/2019 12:00:00 AM ES T eCW1 ([facility]) L80 [id number] Vitiligo Problem 10/28/2019 12:00:00 AM ES T eCW1 ([facility]) Q03989 Other lobsterman (current) drug therapy O ther alf (current) drug therapy Diagnosis 10/30/2019 09:38:00 AM [facility] E559 Vitamin D deficiency, unspecified Vitamin D defi ciency, unspecified Diagnosis 10/30/2019 09:38:00 AM [facility] E039 Hypothyroidism, unspecified Hypothyroidism, unspecifie d Diagnosis 10/30/2019 09:38:00 AM [facility] [id number] Epigastric abdominal tenderness Epigastric abdom inal tenderness Diagnosis 10/30/2019 09:38:00 AM [facility] E7800 Pure hypercholesterolemia, unspecified P ure hypercholesterolemia, unspecified Diagnosis 10/30/2019 09:38:00 AM [facility] R7303 Prediabetes Prediabetes Diagnosis 10/30/2019 09:38:00 AM [facility] Surgeries/Procedures Procedure Description Date Indications Data Source(s) Admin Patient Focused Health Risk Assessment Instrument 10/07/2020 12:00:00 AM EST MEDENT ([facility]) MRI SPINAL CANAL LUMBAR W/O CONTRAST MATERIAL 06/22/20 12:00:00 AM EDT MEDENT ([facility] ) MRI SPINAL CANAL LUMBAR W/O CONTRAST MATERIAL 06/22/20 12:00:00 AM EDT MEDENT ([facility] ) PERCUTANEOUS TESTS W/ALLERGENIC EXTRACTS 02/24/2020 12 :00:00 AM EDT MEDENT ([facility]) INTRACUTANEOUS TESTS W/ALLERGENIC EXTRACTS 02/24/2020 12:00:00 AM EDT MEDENT ([facility]) Brief Emotional/Behav Assessment W/ Scoring Doc Per Standard Inst 12/29/2019 12:00:00 AM EDT MEDENT ([facility]) Results ID Date Data Source [id number] 10/31/2020 12:00:00 AM EST [facility] Name Value Range Interpretation Code Description Data Kendal rce(s) Supporting Document(s) SARS-CoV2 Rapid Antigen Negative [facility] This lab was reported by John Paul encinas. ID Date Data Source [id number] 10/05/2020 07:34:00 AM EST MEDENT ([facility]) Name Value Range Interpretation Code Description Data Kendal rce(s) Supporting Document(s) Antinuclear Antibodies Direct Laboratory test result Normal (applies to non- numeric results) MEDENT ([facility]) Performed at: RN - [facility] [address] [id number] Track Patrol: Geraldine Martinez MD, Phone: [phone] ID Date Data Source [id number] 10/05/2020 07:34:00 AM EST MEDENT ([facility]) Name Value Range Interpretation Code Description Data Kendal rce(s) Supporting Document(s) Erythrocyte sedimentation rate by Westergren method 6 mm/hr 0-30 Normal (applies to non-numeric results) [facility] ([facility]) Rheumatoid factor [Units/volume] in Serum or Plasma Laboratory t est result Normal (applies to non-numeric results) MEDENT ([facility]) ID Date Data Source [id number] 10/05/2020 07:34:00 AM EST MEDENT ([facility]) Name Value Range Interpretation Code Description Data Kendal rce(s) Supporting Document(s) Antinuclear Antibodies Direct Laboratory test result MEDENT ([facility]) Performed at: - [facility] [address] [id number] Track Patrol: Geraldine Martinez MD, Phone: [phone] ID Date Data Source [id number] 10/05/2020 07:34:00 AM EST MEDENT ([facility]) Name Value Range Interpretation Code Description Data Kendal rce(s) Supporting Document(s) Erythrocyte sedimentation rate by 2H Westergren method 6 mm/hr 0-3 0 MEDENT ([facility]) Rheumatoid factor [Units/volume] in Serum or Plasma Laboratory test result MEDENT ([facility] ) ID Date Data Source [id number] 10/05/2020 07:30:00 AM EST MEDENT ([facility]) Name Value Range Interpretation Code Description Data Kendal rce(s) Supporting Document(s) Thyrotropin [Units/volume] in Serum or Plasma 2.690 uIU/ML 0. 358-3.740 Normal (applies to non-numeric results) MEDENT ([facility]) Calcidiol [Mass/volume] in Serum or Plasma 34.4 ng/mL 30.0- 100.0 Normal (applies to non-numeric results) [facility] ([facility]) ID Date Data Source [id number] 10/05/2020 07:30:00 AM EST MEDENT ([facility]) Name Value Range Interpretation Code Description Data Kendal rce(s) Supporting Document(s) Triglycerides Level 184 mg/dL Above high normal MEDENT ([facility]) Cholesterol Level 240 mg/dL Above high normal MEDENT ([facility]) HDL Cholesterol 63 mg/dL Normal (applies to non-numeric results) MED[facility] ([facility]) LDL Cholesterol 140 mg/dL Above high normal ME D[facility] ([facility]) Cholesterol Risk Ratio 3.809 Normal (applies to non-n umeric results) MEDENT ([facility]) Non-HDL-C 177 mg/dL Normal (applies to non-numeric resul ts) MEDENT ([facility]) ID Date Data Source [id number] 10/05/2020 07:30:00 AM EST MEDENT ([facility]) Name Value Range Interpretation Code Description Data Kendal rce(s) Supporting Document(s) Glucose, Fasting 110 mg/dL 70-100 Above high normal M EDENT ([facility]) Blood Urea Nitrogen 15 mg/dL 7-18 Normal (applies to non-nume kevin results) [facility] ([facility]) Glomerular Filtration Rate Laboratory test result Normal (applies to non- numeric results) [facility] ([facility]) <content>Units are mL/min/1.73 m2</content>
<content></content>
<content>Chronic Kidney Disease Staging per NKF:</content>
<content></content>
<content>Stage I & II GFR >=60 Normal to Mildly Decreased</content>
<content>Stage III GFR 30- 59 Moderately Decreased</content>
<content>Stage IV GFR 15-29 Severely Decreased</content>
<content>Stage V GFR <15 Very Little GFR Left</content>
<content>ESRD GFR <15 on RESOURCE AGENT</content>
<content></content> Creatinine For GFR 0.96 mg/dL 0.55-1.30 Normal (applies to non -numeric results) MEDENT ([facility]) Chloride Level 107 meq/L 98-107 Normal (applies to non-numeric r esults) [facility] ([facility]) Potassium Serum 4.4 meq/L 3.5-5.1 Normal (applies to non-numeric results) MED[facility] ([facility]) Sodium Level 140 meq/L 136-145 Normal (applies to non-numeric res ults) [facility] ([facility]) Anion Gap 8 meq/L 8-16 Normal (applies to non-numeric resul ts) MED[facility] ([facility]) Carbon Dioxide Level 25 meq/L 21-32 Normal (applies to non-num keyana results) MED[facility] ([facility]) Calcium Level 9.3 mg/dL 8.5-10.1 Normal (applies to non-numeric re sults) MED[facility] ([facility]) Ast/Sgot 21 U/L 7-37 Normal (applies to non-numeric resul ts) [facility] ([facility]) Alt/SGPT 33 U/L 12-78 Normal (applies to non-numeric resul ts) MEDENT ([facility]) Total Protein 6.4 GM/DL 6.4-8.2 Normal (applies to non-numeric re sults) MED[facility] ([facility]) Alkaline Phosphatase 45 U/L 45-117 Normal (applies to non-num keyana results) [facility] ([facility]) Bilirubin,Total 0.3 mg/dL 0.2-1.0 Normal (applies to non-numeric results) [facility] ([facility]) Albumin/Globulin Ratio 1.6 1.2-2.2 Normal (applies to non-n umeric results) [facility] ([facility]) Albumin 3.9 GM/DL 3.2-5.2 Normal (applies to non-numeric resul ts) MED[facility] ([facility]) ID Date Data Source [id number] 10/05/2020 07:30:00 AM [facility] Name Value Range Interpretation Code Description Data Kendal rce(s) Supporting Document(s) Estimated Average Glucose 123 mg/dL 60-110 Above high normal MEDENT ([facility]) Hemoglobin A1c 5.9 % Normal (applies to non-numeric r esults) [facility] ([facility]) <content>REFERENCE RANGES:</content><br/ ><content></content>
<content><=5.6% NORMAL</content>
<content>5.7-6.4% SUGGESTS IMPAIRED GLUCOSE METABOLISM/PREDIABETIC</content>
<content>>= 6.5% ABNORMAL</content>
<content></content> ID Date Data Source [id number] 10/05/2020 07:30:00 AM EST MEDENT ([facility]) Name Value Range Interpretation Code Description Data Kendal rce(s) Supporting Document(s) Red Blood Count 4.75 10 4.00-5.40 Normal (applies to non-numeric results) MED[facility] ([facility]) White Blood Count 6.6 10 4.0-10.0 Normal (applies to non-numeri c results) [facility] ([facility]) Hemoglobin 13.3 g/dL 12.0-15.5 Normal (applies to non-numeric resul ts) [facility] ([facility]) Mean Corpuscular Volume 86.9 fl 80.0-96.0 Normal ( applies to non-numeric results) [facility] ([facility]) Hematocrit 41.3 % 36.0-47.0 Normal (applies to non-numeric resul ts) [facility] ([facility]) Red Cell Distribution Width 12.5 % 11.5-14.5 Norm al (applies to non-numeric results) [facility] ([facility]) Mean Corpuscular Hemoglobin 28.0 pg 27.0-33.0 Norm al (applies to non-numeric results) [facility] ([facility]) Mean Corpuscular HGB Conc 32.2 g/dL 32.0-36.5 Normal (applies to non-numeric results) [facility] ([facility]) Platelet Count, Automated 352 10 150-450 Normal (applies to non-numeric results) [facility] ([facility]) Lymph % 33.9 % 24.0-44.0 Normal (applies to non-numeric resul ts) [facility] ([facility]) Neutrophils % 52.0 % 36.0-66.0 Normal (applies to non-numeric re sults) [facility] ([facility]) Baso % 1.5 % 0.0-1.0 Above high normal MED[facility] ([facility]) [place] % 8.3 % 0.0-5.0 Above high normal MED[facility] ([facility]) Eos % 4.1 % 0.0-3.0 Above high normal MED[facility] ([facility]) Immature Granulocyte % 0.2 % 0-3.0 Normal (applies to non-n umeric results) [facility] ([facility]) Nucleated Red Blood Cell % 0.0 % 0-0 Normal (applies to n on-numeric results) [facility] ([facility]) Neutrophils # 3.4 10 1.5-8.5 Normal (applies to non-numeric re sults) [facility] ([facility]) Lymph # 2.2 10 1.5-5.0 Normal (applies to non-numeric resul ts) [facility] ([facility]) [place] # 0.6 10 0.0-0.8 Normal (applies to non-numeric resul ts) [facility] ([facility]) Eos # 0.3 10 0.0-0.5 Normal (applies to non-numeric resul ts) [facility] ([facility]) Baso # 0.1 10 0.0-0.2 Normal (applies to non-numeric resul ts) [facility] ([facility]) ID Date Data Source [id number] 12/31/2019 12:00:00 AM EDT [facility] Emilee Cruz Np Patient Name: NAYLA [id number] Date of : 1970[place] [address] Date of Exam: 12/31/2019PH#: Fax: [phone] EXAM: CT MAXILLOFACIAL WITHOUT CONTRASTCLINICAL INFORMATION: Sinusitis.There is rtee-ej-zsklsvrl focal mucosal thickening in theposterior/inferior left maxillary sinus. No other abnormal sinusopacification is seen. 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 Infundibula are patent. There is noosteomeatal complex obstruction. There is mild deviation of the nasalseptum to the right. No abnormal soft tissue is seen in the nasal cavity.Visualized osseous structures are unremarkable.IMPRESSION:Iune-oc-efuvdgos focal mucosal thickening posteriorly and inferiorly in theleft maxillary sinus. No other evidence of sinusitis. No osteomeatalcomplex obstruction. Mild deviation of the nasal septum to the right.Accredited by the [employer] in [place].HARDEEP Harris/Ko you for referring NAYLA KIM to our office. Electronically Signed - ARACELI KELLY MD 01/02/20 16:56 Name Value Range Interpretation Code Description Data Kendal rce(s) Supporting Document(s) ID Date Data Source [id number] 12/31/2019 12:00:00 AM EDT [facility] Emilee Cruz Np Patient Name: NAYLA [id number] Date of : 1970[place] [address] Date of Exam: 12/31/2019#: Fax: [phone] EXAM: SINUSES (3 OR 4 VIEWS) XRAYCLINICAL INFORMATION: History of chronic sinusitis.Four views.Multiple views of the paranasal sinuses show no abnormal soft tissuedensities within any of the visualized paranasal sinuses. There are no airfluid levels. There is no lysis or sclerosis of the bony architecturesurrounding the paranasal sinuses. There is no significant nasal septaldeviation. The adenoidal soft tissues are within normal limits. There isno evidence of airway compromise.IMPRESSION:Unremarkable paranasal sinuses.Consider CT due to its heightened sensitivity in detecting chronicparanasal sinus disorders.Wilner Garcia, ANALI/Ko you for referring NAYLA KIM to our office. Electronically Signed - WILNER GARCIA DO 12/31/19 11:14 Name Value Range Interpretation Code Description Data Kendal rce(s) Supporting Document(s) ID Date Data Source [id number] 10/30/2019 01:46:00 PM EST MED[facility] ([facility]) Name Value Range Interpretation Code Description Data [facility] rce(s) Supporting Document(s) Gastrointestinal (GI) Panel This Gastrointes <SEE NOTE> MEDENT ([facility]) This Gastrointestinal PCR Panel detects the following bacteria, parasites and viruses: Campylobacter (jejuni, coli and upsaliensis), Clostridium difficile (toxin A/B), Plesiomonas shigelloides, Salmonella, Yersinia enterocolitica, Vibrio (parahaemolyticus, vulnificus and cholerae), Vibrio clolerae, Enteroaggregative E. coli (EAEC), Enteropathogenis E. coli (EPEC), Enterotoxigenic E. coli (ETEC) it/st, Shiga-like producing E. coli (STEC) stx1/stc2, E.coli O157, Shigella/Enteroinvasive E. coli (EIEC), Cryptosporidium, Cyclospora cayetanensis, Entamoeba histolytica, Giardia lamblia, Adenovirus F 40/41, Astrovirus, Norovirus GI/GII, Rotavirus A and Sapovirus (I, II, IV, V). NEGATIVE by MULTIPLEXED NUCLEIC ACID PCR ID Date Data Source [id number] 10/30/2019 01:46:00 PM EST MED[facility] ([facility]) Name Value Range Interpretation Code Description Data Kendal rce(s) Supporting Document(s) Fats Neutral Normal Normal (applies to non-numeric res ults) [facility] ([facility]) <content>Normal (<60 Droplets/HPF)</cont ent>
<content></content> Fats Total Normal Normal (applies to non-numeric resul ts) [facility] ([facility]) <content>Normal (<100 Droplets/HPF)</con tent>
<content>Performed at: [facility]</content>
<content>[address], [place] [id number]</content>
<content>[employer] Patrol: Geraldine Martinez MD, Phone: [phone]</content>
<content></content> ID Date Data Source [id number] 10/30/2019 01:46:00 PM EST MED[facility] ([facility]) Name Value Range Interpretation Code Description Data Kendal rce(s) Supporting Document(s) Fat [Mass] in Stool <pending> [facility] ([facility]) ID Date Data Source [id number] 10/30/2019 10:32:00 AM EST [facility] ([facility]) Name Value Range Interpretation Code Description Data Kendal rce(s) Supporting Document(s) Hemoglobin A1c/Hemoglobin.total in Blood 6.1 % 4.4-6.1 [facility] ([facility]) Is patient fasting? N ID Date Data Source [id number] 10/30/2019 10:32:00 AM EST [facility] ([facility]) Name Value Range Interpretation Code Description Data Kendal rce(s) Supporting Document(s) Cholesterol 262 mg/dL 131-200 Above high normal [facility] ([facility]) Is patient fasting? N Cve Panel (SEE NOTE) [facility] ([facility]) Is patient fasting? N Triglycerides 286 mg/dL 35-160 Above high normal MEDE NT ([facility]) Is patient fasting? N LDL 172 mg/dL 65-175 [facility] ([facility]) Is patient fasting? N HDL 64 mg/dL 29-86 [facility] ([facility]) Is patient fasting? N LDL/HDL 2.69 1.47-3.22 [facility] ([facility]) Is patient fasting? N Risk Factor 4.1 3.2-4.4 [facility] ([facility]) Is patient fasting? N ID Date Data Source [id number] 10/30/2019 10:32:00 AM EST [facility] ([facility]) Name Value Range Interpretation Code Description Data Kendal rce(s) Supporting Document(s) Calcidiol [Mass/volume] in Serum or Plasma 25 ng/mL [facility] ([facility]) Is patient fasting? N Thyrotropin [Units/volume] in Serum or Plasma 1.76 uIU/mL 0.47-5.01 [facility] ([facility]) Is patient fasting? N ID Date Data Source [id number] 10/30/2019 10:32:00 AM EST [facility] ([facility]) Name Value Range Interpretation Code Description Data Kendal rce(s) Supporting Document(s) Sodium 138 meq/L 134-153 MED[facility] ([facility]) Is patient fasting? N Comprehensive Metabo (SEE NOTE) [facility] ( [facility]) Is patient fasting? N Chloride 102 meq/L 98-107 [facility] ([facility]) Is patient fasting? N Potassium 4.6 meq/L 3.6-5.0 [facility] ([facility]) Is patient fasting? N Co2 23 meq/L 22-30 [facility] ([facility]) Is patient fasting? N Glucose 104 mg/dL 65-110 [facility] ([facility]) Is patient fasting? N BUN/Creat 18 8-27 [facility] ([facility]) Is patient fasting? N Creatinine 0.9 mg/dL 0.7-1.5 [facility] ([facility]) Is patient fasting? N BUN 16 mg/dL 7-21 [facility] ([facility]) Is patient fasting? N Albumin 4.9 g/dL 3.9-5.0 [facility] ([facility]) Is patient fasting? N Total Protein 7.1 g/dL 6.3-8.2 [facility] ([facility]) Is patient fasting? N A/G Ratio 2.2 0.8-2.0 Above high normal [facility] ([facility]) Is patient fasting? N Globulin 2.2 GM/DL 2.4-3.2 Below low normal [facility] ( [facility]) Is patient fasting? N Calcium 10.1 mg/dL 8.4-10.2 [facility] ([facility]) Is patient fasting? N Total Bili <0.7 mg/dL 0.2-1.3 [facility] ([facility]) Is patient fasting? N Alkaline Phos 44 U/L 38-126 [facility] ([facility]) Is patient fasting? N Sgot/Ast 23 U/L 5-40 [facility] ([facility]) Is patient fasting? N SGPT/Alt 24 U/L 7-56 [facility] ([facility]) Is patient fasting? N Anion Gap 13.0 mmol/L 8.0-16.0 [facility] ([facility]) Is patient fasting? N Age 49 yrs [facility] ([facility]) Is patient fasting? N Non-Aa GFR >60 mL/min [facility] ([facility]) Is patient fasting? N Afr Amer GFR >60 mL/min [facility] ([facility]) Is patient fasting? N ID Date Data Source [id number] 10/30/2019 10:32:00 AM EST [facility] ([facility]) Name Value Range Interpretation Code Description Data Kendal rce(s) Supporting Document(s) CBC W/Automated Diff (SEE NOTE) [facility] ( [facility]) Is patient fasting? N WBC 8.8 10^3/uL 4.2-11.0 [facility] ([facility]) Is patient fasting? N RBC 4.78 10^6/uL 4.20-5.40 [facility] ([facility]) Is patient fasting? N Hematocrit 41.9 % 37.0-47.0 [facility] ([facility]) Is patient fasting? N Hemoglobin 13.3 g/dL 12.0-16.0 [facility] ([facility]) Is patient fasting? N MCHC 31.7 g/dL 31.0-36.0 [facility] ([facility]) Is patient fasting? N MCH 27.8 pg 27.0-34.0 [facility] ([facility]) Is patient fasting? N MCV 87.7 fL 81.0-101 [facility] ([facility]) Is patient fasting? N Platelets 339 10^3/uL 150-450 [facility] ([facility]) Is patient fasting? N RDW 13.0 % 11.5-14.5 [facility] ([facility]) Is patient fasting? N MPV 10.1 fL 7.4-10.4 [facility] ([facility]) Is patient fasting? N Neut 62.6 % 37.0-80.0 [facility] ([facility]) Is patient fasting? N Lymph 26.4 % 25.0-40.0 [facility] ([facility]) Is patient fasting? N [place] 7.4 % 3.0-8.0 [facility] ([facility]) Is patient fasting? N Eos 2.6 % 0.0-7.0 [facility] ([facility]) Is patient fasting? N Baso 0.7 % 0.0-2.5 [facility] ([facility]) Is patient fasting? N %Ig 0.3 % 0.0-0.0 Above high normal [facility] ([facility]) Is patient fasting? N #Neut 5.48 10^3/uL 2.00-6.90 [facility] ([facility]) Is patient fasting? N #Lymph 2.31 10^3/uL 0.60-3.40 [facility] ([facility]) Is patient fasting? N %NRBC 0.0 % 0.0-0.0 [facility] ([facility]) Is patient fasting? N #[place] 0.65 10^3/uL 0.00-0.90 [facility] ([facility]) Is patient fasting? N #Eos 0.23 10^3/uL 0.00-0.70 [facility] ([facility]) Is patient fasting? N #Ig 0.03 10^3/uL 0.00-0.10 [facility] ([facility]) Is patient fasting? N #Baso 0.06 10^3/uL 0.00-0.20 [facility] ([facility]) Is patient fasting? N #NRBC 0.00 10^3/uL 0.00-0.00 [facility] ([facility]) Is patient fasting? N Manual Diff NOT INDICATED [facility] ([facility]) Is patient fasting? N RBC Morph NOT INDICATED [facility] ([facility]) Is patient fasting? N ID Date Data Source [id number] 10/30/2019 07:45:00 PM [facility] Name Value Range Interpretation Code Description Data Kendal rce(s) Supporting Document(s) Thyrotropin [Units/volume] in Serum or Plasma by Detec tion limit <= 0.05 mIU/L 1.76 uIU/mL 0.47 - 5.01 [facility] ID Date Data Source [id number] 10/30/2019 07:45:00 PM [facility] Name Value Range Interpretation Code Description Data Kendal rce(s) Supporting Document(s) Calcidiol [Moles/volume] in Serum or Plasma 25 NG/ML [facility] VITAMIN-D(2 [id number]) Deficiency: <=20 ng/ml Insufficiency: 21-29 ng/ml Preferred level: => 30 ng/ml ID Date Data Source [id number] 10/30/2019 07:41:00 PM [facility] Name Value Range Interpretation Code Description Data Kendal rce(s) Supporting Document(s) COMPREHENSIVE METABOLIC PANEL [facility] COMPREHENSIVE METABOLIC PANEL Sodium [Moles/volume] in Serum or Plasma 138 mEq/L 134 - 153 [facility] Potassium [Moles/volume] in Serum or Plasma 4.6 mEq/L 3.6 - 5.0 [facility] Chloride [Moles/volume] in Serum or Plasma 102 mEq/L 98 - 107 [facility] Carbon dioxide, total [Moles/volume] in Serum or Plasma 23 MEQ/L 22 - 30 [facility] Glucose [Mass/volume] in Serum or Plasma 104 MG/DL 65 - 110 [facility] BUN 16 MG[facility]DL 7 - [facility] Creatinine [Mass/volume] in Serum or Plasma 0.9 MG/DL 0.7 - 1.5 [facility] BUN/CREAT 18 8 - 27 [facility] Protein [Mass/volume] in Serum or Plasma 7.1 G/DL 6.3 - 8.2 [facility] Albumin [Mass/volume] in Serum or Plasma 4.9 G/DL 3.9 - 5.0 [facility] Globulin [Mass/volume] in Serum by calculation 2.2 GM/DL 2.4 - 3.2 L [facility] A/G RATIO 2.2 0.8 - 2.0 H [facility] Calcium [Mass/volume] in Serum or Plasma 10.1 MG/DL 8.4 - 10.2 [facility] Bilirubin.total [Mass/volume] in Serum or Plasma <0.7 MG/DL 0.2 - 1.3 [facility] Alkaline phosphatase [Enzymatic activity/volume] in Serum or Plasma 44 U/L 38 - 126 [facility] Aspartate aminotransferase [Enzymatic activity/volume] in Serum or Plasma 23 U/L 5 - 40 [facility] Alanine aminotransferase [Enzymatic activity/volume] in Seru m or Plasma 24 U/L 7 - 56 [facility] Anion gap 3 in Serum or Plasma 13.0 mmol/L 8.0 - 16.0 [facility] AGE 49 yrs [facility] NON-AA GFR >60 mL/min [facility] AFR AMER GFR >60 mL/min [facility] Male GFR In terprentation 20-49 yrs >60 mL/min Normal 50-59 yrs >56 mL/min Normal 60-69 yrs >49 mL/min Normal 70-79yrs >42 mL/min Normal 80 and above >35 mL/min Normal Female GFR Interpretation 20-39 yrs >60 mL/min Normal 40-49 yrs >58 mL/min Normal 50-59 yrs >51 mL/min Normal 60-69 yrs >45 mL/min Normal 70-79 yrs >39 mL/min Normal 80 and above >32 mL/min Normal ID Date Data Source [id number] 10/30/2019 07:41:00 PM EST [facility] Name Value Range Interpretation Code Description Data Kendal rce(s) Supporting Document(s) C[facility] PANEL [facility] LIPID PAN[facility] Cholesterol [Mass/volume] in Serum or Plasma 262 MG/DL 131 - 200 H [facility] Deprecated Triglyceride [Mass/volume] in Serum or Plasma 286 MG/DL 3 5 - 160 [facility] HDL 64 MG/DL 29 - 86 [facility] Cholesterol in LDL/Cholesterol in HDL [Mass Ratio] in Serum or Plasma 172 mg/dL 65 - 175 [facility] Cholesterol.total/Cholesterol in HDL [Mass Ratio] in Serum o r Plasma 4.1 3.2 - 4.4 [facility] LDL/HDL 2.69 1.47 - 3.22 [facility] CVE RISK CHOL/HDL LDL/HDLMEN: 1/2 AVERAGE 3.43 1.00 AVERAGE 4.97 3.55 2X AVERAGE 9.55 6.25 3X AVERAGE 23.99 7.99WOMEN: 1/2 AVERAGE 3.27 1.47 AVERAGE 4.44 3.22 2X AVERAGE 7.05 5.03 3X AVERAGE 11.04 6.14 ID Date Data Source [id number] 10/30/2019 07:24:00 PM EST [facility] Name Value Range Interpretation Code Description Data Kendal e(s) Supporting Document(s) Hemoglobin A1c/Hemoglobin.total in Blood 6.1 % 4.4 - 6.1 [facility] {A1]{HB] ID Date Data Source [id number] 10/30/2019 07:15:00 PM [facility] Name Value Range Interpretation Code Description Data [facility](s) Supporting Document(s) CBC W/AUTOMATED DIFF [facility] COMPLETE BLOOD COUNT Leukocytes [#/volume] in Blood by Automated count 8.8 10^3/uL 4.2 - 1 1.0 [facility] Erythrocytes [#/volume] in Blood by Automated count 4.78 10^6/uL 4. 20 - 5.40 [facility] Hemoglobin [Mass/volume] in Blood 13.3 g/dL 12.0 - 16.0 [facility] Hematocrit [Volume Fraction] of Blood by Automated count 41.9 % 3 7.0 - 47.0 [facility] Erythrocyte mean corpuscular volume [Entitic volume] by Auto mated count 87.7 fL 81.0 - 101 [facility] Erythrocyte mean corpuscular hemoglobin [Entitic mass] by Automated count 27.8 pg 27.0 - 34.0 [facility] Erythrocyte mean corpuscular hemoglobin concentration [Mass/volume] by Automated count 31.7 g/dL 31.0 - 36.0 [facility] Erythrocyte distribution width [Ratio] by Automated count 13.0 % 11.5 - 14.5 [facility] Platelets [#/volume] in Blood by Automated count 339 10^3/uL 150 - 45 0 [facility] Platelet mean volume [Entitic volume] in Blood by Automated count 10.1 fL 7.4 - 10.4 [facility] Neutrophils/100 leukocytes in Blood by Automated count 62.6 % 37. 0 - 80.0 [facility] Lymphocytes/100 leukocytes in Blood by Manual count 26.4 % 25.0 - 40.0 [facility] Monocytes/100 leukocytes in Blood by Automated count 7.4 % 3.0 - 8.0 [facility] Eosinophils/100 leukocytes in Blood by Automated count 2.6 % 0.0 - 7.0 [facility] Basophils/100 leukocytes in Blood by Automated count 0.7 % 0.0 - 2.5 [facility] %IG 0.3 % 0.0 - 0.0 H [facility] %NRBC 0.0 % 0.0 - 0.0 [facility] Neutrophils [#/volume] in Blood by Automated count 5.48 10^3/uL 2.00 - 6.90 [facility] Lymphocytes [#/volume] in Blood by Automated count 2.31 10^3/uL 0.60 - 3.40 [facility] Monocytes [#/volume] in Blood by Automated count 0.65 10^3/uL 0.00 - 0.90 [facility] Eosinophils [#/volume] in Blood by Automated count 0.23 10^3/uL 0.00 - 0.70 [facility] Basophils [#/volume] in Blood by Automated count 0.06 10^3/uL 0.00 - 0.20 [facility] #IG 0.03 10^3/uL 0.00 - 0.10 [facility] #NRBC 0.00 10^3/uL 0.00 - 0.00 [facility] MANUAL DIFF NOT INDICATED [facility] RBC MORPH NOT INDICATED [facility] Procedure Social History Code Duration Value Status Description Data Source(s ) Smoking 10/31/2020 12:00:00 AM EST Patient is a former smoker completed Patient is a former smoker [facility]) Smoking 02/16/2020 12:00:00 AM EDT Patient is a former smoker completed Patient is a former smoker [facility] ([facility] ) Vital Signs ID Date Data Source UNK Name Value Range Interpretation Code Description Data Source(s) Body mass index (BMI) [Ratio] 30.0 kg/m2 30.0 k g/m2 [facility] ([facility]) Body height 62 [in_i] 62 [in_i] [facility] ([facility]) 5'2" Body weight 164.00 [lb_av] 164.00 [lb_av] MED[facility] T ([facility]) Body temperature 95.7 [degF] 95.7 [degF] [facility] ([facility]) Oxygen saturation in Arterial blood by Pulse oximetry 98 % 98 % [facility] ([facility]) Respiratory rate 13 /min 13 /min [facility] ( [facility]) Heart rate 94 /min 94 /min [facility] ([facility]) Diastolic blood pressure 85 mm[Hg] 85 mm[Hg] [facility] ([facility]) Systolic blood pressure 124 mm[Hg] 124 mm[Hg] M [facility]) Body surface area Derived from formula 1.76 m2 1.76 m2 [facility] ([facility]) Body mass index (BMI) [Ratio] 29.8 kg/m2 29.8 k g/m2 [facility] ([facility]) Body height 62.25 [in_i] 62.25 [in_i] [facility] ([facility]) 5'2.25" Body weight 74.617 kg 74.617 kg [facility] ([facility]) Body weight 164.50 [lb_av] 164.50 [lb_av] MEDEN T ([facility]) Oxygen saturation in Arterial blood by Pulse oximetry 98 % 98 % [facility] ([facility]) Respiratory rate 18 /min 18 /min [facility] ( [facility]) Body temperature 97.2 [degF] 97.2 [degF] [facility] ([facility]) Heart rate 82 /min 82 /min [facility] ([facility]) Diastolic blood pressure 80 mm[Hg] 80 mm[Hg] [facility] ([facility]) Systolic blood pressure 130 mm[Hg] 130 mm[Hg] M EDENT ([facility]) Body mass index (BMI) [Ratio] 30.0 kg/m2 30.0 k g/m2 [facility] ([facility]) Body height 62 [in_i] 62 [in_i] [facility] ([facility]) 5'2" Body weight 164.00 [lb_av] 164.00 [lb_av] MEDEN T ([facility], [facility]) Body temperature 97.7 [degF] 97.7 [degF] [facility] ([facility], [facility]) Oxygen saturation in Arterial blood by Pulse oximetry 98 % 98 % [facility] ([facility], [facility]) Respiratory rate 18 /min 18 /min [facility] ( [facility], [facility]) Heart rate 85 /min 85 /min [facility] ([facility], [facility]) Diastolic blood pressure 84 mm[Hg] 84 mm[Hg] [facility] ([facility], [facility]) Systolic blood pressure 124 mm[Hg] 124 mm[Hg] M EDENT ([facility], [facility]) Diastolic blood pressure 88 mm[Hg] 88 mm[Hg] eCW1 ([facility]) Systolic blood pressure 128 mm[Hg] 128 mm[Hg] e CW1 ([facility]) Body mass index (BMI) [Ratio] 31.21 kg/m2 31.21 kg/m2 eCW1 ([facility]) Body height 61 [in_i] 61 [in_i] W1 ([facility]) Body weight 165.2 [lb_av] 165.2 [lb_av] eCW1 ([facility]) Body mass index (BMI) [Ratio] 30.0 kg/m2 30.0 k g/m2 [facility] ([facility], [facility]) Body height 62 [in_i] 62 [in_i] [facility] ([facility], [facility]) 5'2" Body weight 164.00 [lb_av] 164.00 [lb_av] MEDEN T ([facility], [facility]) Body temperature 98.1 [degF] 98.1 [degF] [facility] ([facility], [facility]) Oxygen saturation in Arterial blood by Pulse oximetry 97 % 97 % [facility] ([facility], [facility]) Respiratory rate 12 /min 12 /min MED[facility] ( [facility], [facility]) Heart rate 89 /min 89 /min [facility] ([facility], [facility]) Diastolic blood pressure 86 mm[Hg] 86 mm[Hg] [facility] ([facility], [facility]) Systolic blood pressure 127 mm[Hg] 127 mm[Hg] M EDENT ([facility], [facility]) Body weight 164.00 [lb_av] 164.00 [lb_av] MEDEN T ([facility], ) Respiratory rate 16 /min 16 /min MED[facility] ( [facility], ) Heart rate 76 /min 76 /min [facility] ([facility], ) Diastolic blood pressure 80 mm[Hg] 80 mm[Hg] [facility] ([facility], ) Systolic blood pressure 140 mm[Hg] 140 mm[Hg] M EDENT ([facility], ) Diastolic blood pressure 82 mm[Hg] 82 mm[Hg] eCW1 ([facility]) Systolic blood pressure 128 mm[Hg] 128 mm[Hg] e CW1 ([facility]) Body mass index (BMI) [Ratio] 29.85 kg/m2 29.85 kg/m2 [facility] ([facility]) Body height 61 [in_i] 61 [in_i] eCW1 ([facility]) Body weight 71.67 kg 71.67 kg eCW1 ([facility]) Body weight 158 [lb_av] 158 [lb_av] eCW1 ([facility]) Body mass index (BMI) [Ratio] 30.4 kg/m2 30.4 k g/m2 [facility] ([facility]) Diastolic blood pressure 80 mm[Hg] 80 mm[Hg] [facility] ([facility]) Systolic blood pressure 124 mm[Hg] 124 mm[Hg] M EDENT ([facility]) Respiratory rate 18 /min 18 /min [facility] ( [facility]) Heart rate 89 /min 89 /min [facility] ([facility] Body height 61.5 [in_i] 61.5 [in_i] [facility] ([facility] 5'1.50" Body weight 163.50 [lb_av] 163.50 [lb_av] MEDEN T ([facility]) Body mass index (BMI) [Ratio] 30.2 kg/m2 30.2 k g/m2 [facility] ([facility]) Diastolic blood pressure 81 mm[Hg] 81 mm[Hg] [facility] ([facility]) Systolic blood pressure 125 mm[Hg] 125 mm[Hg] M EDENT ([facility]) Respiratory rate 18 /min 18 /min [facility] ( [facility]) Heart rate 80 /min 80 /min [facility] ([facility] Body height 62 [in_i] 62 [in_i] [facility] ([facility] 5'2" Body weight 165.38 [lb_av] 165.38 [lb_av] MEDEN T ([facility]) Body surface area Derived from formula 1.77 m2 1.77 m2 [facility] ([facility]) Systolic blood pressure 126 mm[Hg] 126 mm[Hg] M EDENT ([facility]) Oxygen saturation in Arterial blood by Pulse oximetry 97 % 97 % [facility] ([facility]) Respiratory rate 18 /min 18 /min [facility] ( [facility]) Body temperature 98.2 [degF] 98.2 [degF] [facility] ([facility]) Heart rate 94 /min 94 /min [facility] ([facility]) Diastolic blood pressure 82 mm[Hg] 82 mm[Hg] [facility] ([facility]) Body mass index (BMI) [Ratio] 29.9 kg/m2 29.9 k g/m2 [facility] ([facility]) Body height 62.25 [in_i] 62.25 [in_i] [facility] ([facility]) 5'2.25" Body weight 74.844 kg 74.844 kg [facility] ([facility]) Body weight 165.00 [lb_av] 165.00 [lb_av] MEDEN T ([facility]) Body surface area 1.77 m2 1.77 m2 [facility] ([facility]) Body surface area 1.77 m2 1.77 m2 [facility] ([facility]) Body mass index (BMI) [Ratio] 30.0 kg/m2 30.0 k g/m2 [facility] ([facility]) Body height 62.25 [in_i] 62.25 [in_i] [facility] ([facility]) 5'2.25" Body weight 74.901 kg 74.901 [facility] Body weight 165.12 [lb_av] 165.12 [lb_av] MEDEN T ([facility]) Oxygen saturation in Arterial blood by Pulse oximetry 97 % 97 % [facility] ([facility]) Respiratory rate 16 /min 16 /min [facility] ( [facility]) Body temperature 97.9 [degF] 97.9 [degF] [facility] ([facility]) Heart rate 88 /min 88 /min [facility] ([facility]) Diastolic blood pressure 76 mm[Hg] 76 mm[Hg] [facility] ([facility]) Systolic blood pressure 132 mm[Hg] 132 mm[Hg] M EDENT ([facility]) Respiratory rate 16 /min 16 /min MEDENT ( [facility], ) Heart rate 80 /min 80 /min MEDENT ([facility], ) Diastolic blood pressure 78 mm[Hg] 78 mm[Hg] MEDENT ([facility], ) Systolic blood pressure 110 mm[Hg] 110 mm[Hg] M EDENT ([facility], ) Body mass index (BMI) [Ratio] 28.5 kg/m2 28.5 k g/m2 MEDENT ([facility], [facility]) Body height 62 [in_i] 62 [in_i] MEDENT ([facility], [facility]) 5'2" Body weight 156.00 [lb_av] 156.00 [lb_av] MEDEN T ([facility], [facility]) Body temperature 98.3 [degF] 98.3 [degF] MEDENT ([facility], [facility]) Oxygen saturation in Arterial blood by Pulse oximetry 99 % 99 % [facility] ([facility], [facility]) Respiratory [facility] 16 /min 16 /min [facility] ( [facility], [facility]) Heart rate 60 [facility]min 60 /min [facility] ([facility], [facility]) Diastolic blood pressure 83 mm[Hg] 83 mm[Hg] [facility] ([facility], [facility]) Systolic blood pressure 139 mm[Hg] 139 mm[Hg] [facility] ([facility], [facility])
--- OUTSIDE RECORDS SUMMARY | 2020-11-12 14:37 | CCD ---
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 Role Phone Yovani Cook Unavailable Unavailable [...] Alley Emilee ANP-BC Unavailable Unavailable Navarrete, Loly SAMPLE COLOR MAKER Unavailable Unavailable Navarrete, Loly SAMPLE COLOR MAKER Unavailable Unavailable Navarrete, Loly SAMPLE COLOR MAKER Unavailable Unavailable Navarrete, Loly SAMPLE COLOR MAKER Unavailable Unavailable Navarrete, Loly SAMPLE COLOR MAKER Unavailable Unavailable Navarrete, Loly SAMPLE COLOR MAKER Unavailable Unavailable Navarrete, Loly SAMPLE COLOR MAKER Unavailable Unavailable Navarrete, Loly SAMPLE COLOR MAKER Unavailable Unavailable Navarrete, Loly SAMPLE COLOR MAKER Unavailable Unavailable Navarrete, Loly SAMPLE COLOR MAKER Unavailable Unavailable Navarrete, Loly SAMPLE COLOR MAKER Unavailable Unavailable Anthony, Alley Emilee ANP-BC Unavailable [...] Unavailable Anthony, Alley Emilee ANP-BC Unavailable Unavailable Atnhony, Alley Emilee ANP-BC Unavailable Unavailable Anthony, Alley [...] Unavailable Anthony, Alley Emilee ANP-BC Unavailable Unavailable Philly Garcia [...] is protected by Article 27-F of the [facility] Public Health law. If you continue you may have access to information: Regarding HIV / AIDS; Provided by facilities licensed or operated by the [facility] Office of Mental Health; or Provided by the [facility] Office for People With Developmental Disabilities. If such information is present, then the following [facility] mandated warning applies: This information has been [...] law may result in a fine or mcc sentence or both. A general authorization for the release of medical or other information is NOT sufficient authorization for further disc losure. Allergies and Adverse Reactions Type Description Substance Reaction Status Data Source(s ) Drug Allergy NKDA NKDA [facility] ([facility]) Family History Family Member Name Family Member Gender Family Member Status Date o f Status Description Data Source(s) Unknown Unknown Problem [facility] ([facility], [facility]) mother,mgf,pgm Encounters Encounter Providers Location Date Indications Data Source(s ) Outpatient Attender: RGACIA BOSWELL [facility]: NOEM[facility] Smart Primary 10/31/2020 09:35:00 AM EST [facility] ([facility]) Outpatient Attender: Emilee Cruz ANP- 09/18 09:58:00 AM EST - 10/07/2020 09:58:00 AM EST [facility] Outpatient Attender: Elisabeth Smart Prim darrin 09/08/2020 04:45:00 PM EST [facility] ([facility]) Office Visit Attender: Maryse LONGORIA Main office - [facility] 08/30/2020 09:45:00 AM EST [facility] ([facility]) [place] [address] [address] 08/17/2020 12:00:00 AM EST eCW1 ([facility]) Outpatient Attender: Loly Smart [facility] 07/09/2020 12:50:00 PM EDT MED[facility] ([facility]) Outpatient Attender: Maryse LONGORIA Main office - [facility] 05/31/2020 02:15:00 PM EDT MED[facility] ([facility]) ( GYNANN) [facility] Yearly CORN PICKER Exam [address] [place] [address] 04/08/2020 12:00:00 AM EDT eCW1 ([facility]) [place] [address] [address] 03/08/2020 12:00:00 AM EDT eCW1 ([facility]) Outpatient Attender: GORGE NESS MD Main Office 02/24/2020 10:45:00 AM EDT [facility] ([facility]) Office Visit Attender: Maryse LONGORIA Main office - [facility] 02/20/2020 09:30:00 AM EDT [facility] ([facility]) Outpatient Attender: GORGE NESS MD Main Office 02/16/2020 09:30:00 AM EDT [facility] [address] [place] [phone] 01/23/2020 12:00:00 AM EDT eCW1 (On license of [facility]) Outpatient Referrer: Emilee CONDE 12/31/2019 01:12:00 PM [...] Maryse LONGORIA 12/30/2019 03:08:00 P M EDT [facility] Outpatient Attender: Emilee CONDE 12/16 01:48:00 PM EDT - 12/29/2019 01:48:00 PM EDT [facility] Outpatient Attender: Maryse LONGORIA [facility] 10/30/2019 12:00:00 PM EST [facility] ([facility] Outpatient Attender: Emilee CONDE 10/18 09:38:00 AM EST - 10/30/2019 09:38:00 AM EST [facility] Outpatient Attender: Emilee CONDE Family [facility] 10/18 08:40:00 AM EST [facility] ([facility] [address] [place] [id number] 10/28/2019 12:00:00 AM EST eCW1 (On license of [facility]) [address] [address] 10/28/2019 12:00:00 AM EST eCW1 ([facility]) Outpatient Attender: NOEMÍ [place] 10/02/2019 05:15:00 PM EST [facility] ([facility] Medications Medication Brand Name Start Date Product Form Dose Route Admi nistrative Instructions Pharmacy Instructions Status Indications Reaction Description Data Source(s) Sulfamethoxazole 800 MG / Trimethoprim 160 MG Oral Tablet [B actrim] Bactrim DS 10/31/2020 12:00:00 AM EST ORAL active MED[facility] ([facility]) Prednisone 20 MG Oral Tablet Prednisone 10/31/2020 12:00:00 AM EST ORAL active [facility] ([facility]) Fluconazole 150 MG Oral Tablet [Diflucan] Diflucan 10/31/2020 1 2:00:00 AM EST ORAL active [facility] ([facility]) Sulfamethoxazole 800 MG / Trimethoprim 160 MG Oral Tab let Sulfamethoxazole/Trimethoprim DS 09/08/2020 12:00:00 AM EST ORAL completed [facility] ([facility]) Sulfamethoxazole 800 MG / Trimethoprim 160 [...] Prednisone 09/08/2020 12:00:00 AM EST completed [facility] ([facility]) Ergocalciferol 55643 UNT Oral Capsule Vitamin D (Ergocalcife rol) 09/03/2020 12:00:00 AM EST ORAL active M EDENT ([facility]) Polymyxin B 59054 UNT/ML / Trimethoprim 1 MG/ML Ophtha lmic Solution Polymyxin B Sulfate/Trimethoprim Sulfate 07/09/2020 12:00:00 AM EDT completed MED[facility] ([facility]) Ketorolac Tromethamine 5 MG/ML Ophthalmic Solution Ketorolac Tromethamine 07/09/2020 12:00:00 AM EDT completed [facility] ([facility]) Xray Left Foot And Ankle 05/31/2020 12:00:00 AM EDT completed MED[facility] ([facility]) Amoxicillin 875 MG / Clavulanate 125 MG Oral Tablet Am oxicillin/Clavulanate Potassium 05/31/2020 12:00:00 AM EDT ORAL completed MED[facility] ([facility]) Fluconazole 150 MG Oral Tablet [Diflucan] Diflucan 05/31/2020 1 2:00:00 AM EDT ORAL completed [facility] ([facility] ) Triamcinolone Acetonide 1 MG/ML Topical Cream Triamcin olone Acetonide 0.1 % Triamcinolone Acetonide 0.1 % 03/11/2020 12:00:00 AM EDT active Triamcinolone Acetonide 0.1 % eCW1 ([facility]) Ergocalciferol 93394 UNT Oral Capsule [Drisdol] Drisdol 12/29/2019 12:00:00 AM EDT ORAL active MEDENT ([facility]) Prednisone 10 MG Oral Tablet Prednisone 12/29/2019 12:00:00 AM EDT active MED[facility] ([facility]) Sulfamethoxazole 800 MG / Trimethoprim 160 MG Oral Tab let Sulfamethoxazole/Trimethoprim DS 12/29/2019 12:00:00 AM EDT ORAL active MED[facility] ([facility]) Sucralfate 100 MG/ML Oral Suspension Sucralfate 11/04/2019 12:00:00 A M EST ORAL active MED[facility] ([facility]) Sumatriptan 100 MG Oral Tablet [Imitrex] Imitrex 10/30/2019 12:00: 00 AM EST ORAL active [facility] ([facility]) Fluconazole 150 MG Oral Tablet [Diflucan] Diflucan 10/02/2019 1 2:00:00 AM EST ORAL active MED[facility] ([facility]) Sulfamethoxazole 800 MG / Trimethoprim 160 MG Oral Tablet [B actrim] Bactrim DS 10/02/2019 12:00:00 AM EST ORAL active [facility] ([facility]) Prednisone 20 MG Oral Tablet Prednisone 10/02/2019 12:00:00 AM EST ORAL active [facility] ([facility]) Meclizine Hydrochloride 25 MG Oral Tablet Meclizine HCL 06/18/2019 12:00:00 AM EDT ORAL completed MED[facility] ([facility]) Zithromax Z-Cam Zithromax Z-Cam 06/18/2019 12:00:00 AM EDT ORAL completed [facility] ([facility]) Anxiety active Anxiety MED[facility] ([facility]) Insurance Providers Payer name Policy type / Coverage type Policy ID Covered alliance party ID Covered alliance party's relationship to tejeda Policy Tejeda Plan Information [place]/307 [id number] SP [id number] EXCELLUS C [id number] Self [id number] [facility]LLUS Y [facility] [id number] 18 [id number] [place] P[place] 302/307 [id number] SP [id number] EXCELLUS BCBS B [id number] S [id number] [place] P[place] 302/307 [id number] SP [id number] BC/[place] Of [place] Commercial [id number] Self [id number] [place] 302/307 [id number] SP [id number] BC/[place] Of [place] Commercial [id number] Self [id number] ANSI-Commercial [id number] BCBS/Excellus Commercial [id number] Self [id number] Excell[employer] U/W Commercial [id number] Self [id number] ANSI-Commercial [id number] BC/[place] Of [place] Commercial [id number] Self [id number] BC/BS Of [place] Commercial [id number] Self [id number] [facility] U/W Commercial [id number] Self [id number] BC/BS Of [place] Commercial [id number] Self [id number] BCBS/[employer]cell[employer] Commercial [id number] Self [id number] [place] 302/307 [id number] SP [id number] [place] 302/307 [id number] SP [id number] BC/BS Of [place] Commercial [id number] Self [id number] [employer] [facility] U/W Commercial [id number] Self [id number] Excell[employer] [facility] U/W Commercial [id number] Self [id number] BC/BS Of [place] Commercial [id number] Self [id number] BCBS/Excell[employer] Commercial [id number] Self [id number] [id number] BCBS/Excellus Commercial Self BC/BS Of [place] Commercial Self [facility] U/W Commercial Self EXCELLUS H [id number] Self [id number] No Ins/Self Pay Commercial Self SELF PAY UNAVAILABLE SP UNAVAILA BLE BC/BS Of [place] Commercial Self [place] P[place] 302/307 [id number] SP [id number] BCBS [place] 304/804 [id number] SP [id number] BC[place] P[place] 302/307 [id number] SP [id number] BCBS [place] P[place] 302/307 [id number] SP [id number] BC[place] P[place] 302/307 [id number] SP [id number] BC[place] P[place] 302/307 [id number] SP [id number] [employer] [id number] SP [id number] [employer] [id number] SP [id number] [employer] [id number] SP [id number] [employer] [id number] SP [id number] EXCELLUS BCBS P [id number] S [id number] Problems, Conditions, and Diagnoses Code Display Name Description Problem Type Effective Dates Data Source(s) Z86.018 [id number] Hx of dysplastic nevus Problem 03/12/2020 12:00:00 AM EDT eCW1 ([facility]) 03445685 Allergic rhinitis due to pollen Allergic rhiniti s due to pollen Problem 02/24/2020 12:00:00 AM EDT [facility] ([facility]) 56316350 Chronic sinusitis Chronic sinusitis Problem 02/16/2020 12:00:00 AM EDT [facility] ([facility]) 990200039 Allergic rhinitis due to house dust mite Allergic rhinitis due to house dust mite Problem 02/16/2020 12:00:00 AM EDT [facility] ([facility]) 81273044 Allergic rhinitis due to animals Allergic rhinit is due to animals Problem 02/16/2020 12:00:00 AM EDT [facility] ([facility]) L80 [id number] Vitiligo Problem 10/28/2019 12:00:00 AM ES T eCW1 ([facility]) L80 [id number] Vitiligo Problem 10/28/2019 12:00:00 AM ES T eCW1 ([facility]) 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 halfway (current) drug therapy Diagnosis 10/30/2019 09:38:00 AM [facility] E559 Vitamin D deficiency, unspecified Vitamin D defi ciency, unspecified Diagnosis 10/30/2019 09:38:00 AM [facility] E039 Hypothyroidism, unspecified Hypothyroidism, unspecifie d Diagnosis 10/30/2019 09:38:00 AM [facility] V59798 Epigastric abdominal tenderness Epigastric abdom inal tenderness Diagnosis 10/30/2019 09:38:00 AM [facility] E7800 Pure hypercholesterolemia, unspecified P ure hypercholesterolemia, unspecified Diagnosis 10/30/2019 09:38:00 AM [facility] R7303 Prediabetes Prediabetes Diagnosis 10/30/2019 09:38:00 AM [facility] Surgeries/Procedures Procedure Description Date Indications Data Source(s) Admin Patient Focused Health Risk Assessment Instrument 10/07/2020 12:00:00 AM EST MED[facility] ([facility]) MRI SPINAL CANAL LUMBAR W/O CONTRAST MATERIAL 06/22/20 12:00:00 AM EDT [facility] ([facility] MRI SPINAL CANAL LUMBAR W/O CONTRAST MATERIAL 06/22/20 12:00:00 AM EDT MED[facility] ([facility] ) PERCUTANEOUS TESTS W/ALLERGENIC EXTRACTS 02/24/2020 12 :00:00 AM EDT [facility] ([facility] INTRACUTANEOUS TESTS W/ALLERGENIC EXTRACTS 02/24/2020 12:00:00 AM EDT [facility] ([facility]) Brief Emotional/Behav Assessment W/ Scoring Doc Per Standard Inst 12/29/2019 12:00:00 AM EDT MED[facility] ([facility]) Results ID Date Data Source [id number] 10/31/2020 12:00:00 AM EST [facility] Name Value Range Interpretation Code Description Data Kendal rce(s) Supporting Document(s) SARS-CoV2 Rapid Antigen Negative [facility] This lab was reported by John Paul encinas. ID Date Data Source [id number] 10/05/2020 07:34:00 AM EST [facility] ([facility]) Name Value Range Interpretation Code Description Data Kendal rce(s) Supporting Document(s) Antinuclear Antibodies Direct Laboratory test result Normal (applies to non- numeric results) [facility] ([facility]) Performed at: RN - [facility] [address] [id number] Turner Splitter Machine Operator: Geraldine Martinez MD, Phone: [phone] ID Date Data Source [id number] 10/05/2020 07:34:00 AM EST MED[facility] ([facility]) Name Value Range Interpretation Code Description Data Kendal rce(s) Supporting Document(s) Erythrocyte sedimentation rate by Westergren method 6 mm/hr 0-30 Normal (applies to non-numeric results) [facility] ([facility]) Rheumatoid factor [Units/volume] in Serum or Plasma Laboratory t est result Normal (applies to non-numeric results) [facility] ([facility]) ID Date Data Source [id number] 10/05/2020 07:34:00 AM EST MED[facility] ([facility]) Name Value Range Interpretation Code Description Data Kendal rce(s) Supporting Document(s) Antinuclear Antibodies Direct Laboratory test result [facility] ([facility]) Performed at: - [facility] [address] [id number] [employer] Splitter Machine Operator: Geraldine Martinez MD, Phone: [phone] ID Date Data Source [id number] 10/05/2020 07:34:00 AM EST MED[facility] ([facility]) Name Value Range Interpretation Code Description Data Kendal rce(s) Supporting Document(s) Erythrocyte sedimentation rate by 2H Westergren method 6 mm/hr 0-3 0 MED[facility] ([facility]) Rheumatoid factor [Units/volume] in Serum or Plasma Laboratory test result [facility] ([facility] ) ID Date Data Source [id number] 10/05/2020 07:30:00 AM EST [facility] ([facility]) Name Value Range Interpretation Code Description Data Kendal rce(s) Supporting Document(s) Thyrotropin [Units/volume] in Serum or Plasma 2.690 uIU/ML 0. 358-3.740 Normal (applies to non-numeric results) MED[facility] ([facility]) Calcidiol [Mass/volume] in Serum or Plasma 34.4 ng/mL 30.0- 100.0 Normal (applies to non-numeric results) [facility] ([facility]) ID Date Data Source [id number] 10/05/2020 07:30:00 AM EST MED[facility] ([facility]) Name Value Range Interpretation Code Description Data Kendal rce(s) Supporting Document(s) Triglycerides Level 184 mg/dL Above high normal [facility] ([facility]) Cholesterol Level 240 mg/dL Above high normal [facility] ([facility]) HDL Cholesterol 63 mg/dL Normal (applies to non-numeric results) [facility] ([facility]) LDL Cholesterol 140 mg/dL Above high normal [facility] ([facility]) Cholesterol Risk Ratio 3.809 Normal (applies to non-n umeric results) [facility] ([facility]) Non-HDL-C 177 mg/dL Normal (applies to non-numeric resul ts) [facility] ([facility]) ID Date Data Source [id number] 10/05/2020 07:30:00 AM EST [facility] ([facility]) Name Value Range Interpretation Code Description Data Kendal rce(s) Supporting Document(s) Glucose, Fasting 110 mg/dL 70-100 Above high normal M EDENT ([facility]) Blood Urea Nitrogen 15 mg/dL 7-18 Normal (applies to non-nume keivn results) [facility] Glomerular Filtration Rate Laboratory test result Normal (applies to non- numeric results) [facility] ([facility]) <content>Units are mL/min/1.73 m2</content>
<content></content>
<content>Chronic Kidney Disease Staging per NKF:</content>
<content></content>
<content>Stage I & II GFR >=60 Normal to Mildly Decreased</content>
<content>Stage III GFR 30- 59 Moderately Decreased</content>
<content>Stage IV GFR 15-29 Severely Decreased</content>
<content>Stage V GFR <15 Very Little GFR Left</content>
<content>ESRD GFR <15 on HOTEL SERVICES SUPERVISOR</content>
<content></content> Creatinine For GFR 0.96 mg/dL 0.55-1.30 Normal (applies to non -numeric results) [facility] ([facility]) Chloride Level 107 meq/L 98-107 Normal (applies to non-numeric r esults) [facility] Potassium Serum 4.4 meq/L 3.5-5.1 Normal (applies to non-numeric results) [facility] ([facility]) Sodium Level 140 meq/L 136-145 Normal (applies to non-numeric res ults) [facility] ([facility]) Anion Gap 8 meq/L 8-16 Normal (applies to non-numeric resul ts) [facility] ([facility]) Carbon Dioxide Level 25 meq/L 21-32 Normal (applies to non-num keyana results) [facility] ([facility]) Calcium Level 9.3 mg/dL 8.5-10.1 Normal (applies to non-numeric re sults) [facility] ([facility]) Ast/Sgot 21 U/L 7-37 Normal (applies to non-numeric resul ts) [facility] ([facility]) Alt/SGPT 33 U/L 12-78 Normal (applies to non-numeric resul ts) [facility] ([facility]) Total Protein 6.4 GM/DL 6.4-8.2 Normal (applies to non-numeric re sults) [facility] ([facility]) Alkaline Phosphatase 45 U/L 45-117 Normal (applies to non-num keyana results) [facility] Bilirubin,Total 0.3 mg/dL 0.2-1.0 Normal (applies to non-numeric results) [facility] Albumin/Globulin Ratio 1.6 1.2-2.2 Normal (applies to non-n umeric results) [facility] Albumin 3.9 GM/DL 3.2-5.2 Normal (applies to non-numeric resul ts) [facility] ([facility]) ID Date Data Source [id number] 10/05/2020 07:30:00 AM [facility] Name Value Range Interpretation Code Description Data Kendal rce(s) Supporting Document(s) Estimated Average Glucose 123 mg/dL 60-110 Above high normal [facility] ([facility]) Hemoglobin A1c 5.9 % Normal (applies to non-numeric r esults) [facility] <content>REFERENCE RANGES:</content><br/ ><content></content>
<content><=5.6% NORMAL</content>
<content>5.7-6.4% SUGGESTS IMPAIRED GLUCOSE METABOLISM/PREDIABETIC</content>
<content>>= 6.5% ABNORMAL</content>
<content></content> ID Date Data Source [id number] 10/05/2020 07:30:00 AM EST [facility] ([facility]) Name Value Range Interpretation Code Description Data Kendal rce(s) Supporting Document(s) Red Blood Count 4.75 10 4.00-5.40 Normal (applies to non-numeric results) [facility] ([facility]) White Blood Count 6.6 10 4.0-10.0 Normal (applies to non-numeri c results) [facility] ([facility]) Hemoglobin 13.3 g/dL 12.0-15.5 Normal (applies to non-numeric resul ts) [facility] ([facility]) Mean Corpuscular Volume 86.9 fl 80.0-96.0 Normal ( applies to non-numeric results) [facility] ([facility]) Hematocrit 41.3 % 36.0-47.0 Normal (applies to non-numeric resul ts) [facility] ([facility]) Red Cell Distribution Width 12.5 % 11.5-14.5 Norm al (applies to non-numeric results) [facility] ([facility]) Mean Corpuscular Hemoglobin 28.0 pg 27.0-33.0 Norm al (applies to non-numeric results) [facility] ([facility]) Mean Corpuscular HGB Conc 32.2 g/dL 32.0-36.5 Normal (applies to non-numeric results) [facility] ([facility]) Platelet Count, Automated 352 10 150-450 Normal (applies to non-numeric results) [facility] ([facility]) Lymph % 33.9 % 24.0-44.0 Normal (applies to non-numeric resul ts) [facility] ([facility]) Neutrophils % 52.0 % 36.0-66.0 Normal (applies to non-numeric re sults) [facility] ([facility]) Baso % 1.5 % 0.0-1.0 Above high normal [facility] ([facility]) [place] % 8.3 % 0.0-5.0 Above high normal [facility] ([facility]) Eos % 4.1 % 0.0-3.0 Above high normal [facility] ([facility]) Immature Granulocyte % 0.2 % 0-3.0 Normal (applies to non-n umeric results) [facility] ([facility]) Nucleated Red Blood Cell % 0.0 % 0-0 Normal (applies to n on-numeric results) [facility] ([facility]) Neutrophils # 3.4 10 1.5-8.5 Normal (applies to non-numeric re sults) [facility] ([facility]) Lymph # 2.2 10 1.5-5.0 Normal (applies to non-numeric resul ts) [facility] ([facility]) [place] # 0.6 10 0.0-0.8 Normal (applies to non-numeric resul ts) [facility] ([facility]) Eos # 0.3 10 0.0-0.5 Normal (applies to non-numeric resul ts) [facility] ([facility]) Baso # 0.1 10 0.0-0.2 Normal (applies to non-numeric resul ts) [facility] ([facility]) ID Date Data Source [id number] 12/31/2019 12:00:[address] [facility] oly Imaging Emilee Cruz Np Patient Name: NAYLA [id number] [address] Date of : 1970[place] [id number] Date of Exam: 12/31/2019PH#: Fax: [phone] EXAM: CT MAXILLOFACIAL WITHOUT CONTRASTCLINICAL INFORMATION: Sinusitis.There is fhia-ez-sdaspsew focal mucosal thickening in theposterior/inferior left maxillary sinus. No other abnormal sinusopacification is seen. 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 Infundibula are patent. There is noosteomeatal complex obstruction. There is mild deviation of the nasalseptum to the right. No abnormal soft tissue is seen in the nasal cavity.Visualized osseous structures are unremarkable.IMPRESSION:Rkxo-qw-nfyocpws focal mucosal thickening posteriorly and inferiorly in theleft maxillary sinus. No other evidence of sinusitis. No osteomeatalcomplex obstruction. Mild deviation of the nasal septum to the right.Accredited by the [employer] in [place].HARDEEP Harris/Ko you for referring NAYLA KIM to our office. Electronically Signed - ARACELI KELLY MD 01/02/20 16:56 Name Value Range Interpretation Code Description Data Kendal rce(s) Supporting Document(s) ID Date Data Source [id number] 12/31/2019 12:00:00 AM EDT [facility] Emilee Cruz Np Patient Name: NAYLA [id number] Date [place] : 1970[place] [address] Date of Exam: 12/31/2019#: Fax: [phone] EXAM: [...] rce(s) Supporting Document(s) ID Date Data Source [id number] 10/30/2019 01:46:00 PM EST [facility] ([facility]) Name Value Range Interpretation Code Description Data [facility] rce(s) Supporting Document(s) Gastrointestinal (GI) Panel This Gastrointes <SEE NOTE> [facility] ([facility]) This Gastrointestinal PCR Panel detects the following [...] NUCLEIC ACID PCR ID Date Data Source [id number] 10/30/2019 01:46:00 PM EST [facility] ([facility]) Name Value Range Interpretation Code Description Data Kendal rce(s) Supporting Document(s) Fats Neutral Normal Normal (applies to non-numeric res ults) [facility] ([facility]) <content>Normal (<60 Droplets/HPF)</cont ent>
<content></content> Fats Total Normal Normal (applies to non-numeric resul ts) [facility] ([facility]) <content>Normal (<100 Droplets/HPF)</con tent>
<content>Performed at: [facility]</content>
<content>[address] [place], [place] [id number]</content>
<content>[employer]: Geraldine Martinez MD, Phone: [phone]</content>
<content></content> ID Date Data Source [id number] 10/30/2019 01:46:00 PM EST [facility] ([facility]) Name Value Range Interpretation Code Description Data Kendal rce(s) Supporting Document(s) Fat [Mass] in Stool <pending> [facility] ([facility]) ID Date Data Source [id number] 10/30/2019 10:32:00 AM EST [facility] ([facility]) Name Value Range Interpretation Code Description Data Kendal rce(s) Supporting Document(s) Hemoglobin A1c/Hemoglobin.total in Blood 6.1 % 4.4-6.1 [facility] ([facility]) Is patient fasting? N ID Date Data Source [id number] 10/30/2019 10:32:00 AM EST [facility] ([facility]) Name Value Range Interpretation Code Description Data Kendal rce(s) Supporting Document(s) Cholesterol 262 mg/dL 131-200 Above high normal [facility] ([facility]) Is patient fasting? N Cve Panel (SEE NOTE) [facility]) Is patient fasting? N Triglycerides 286 mg/dL 35-160 Above high normal MEDE NT ([facility]) Is patient fasting? N LDL 172 mg/dL 65-175 [facility] ([facility]) Is patient fasting? N HDL 64 mg/dL 29-86 [facility] ([facility]) Is patient fasting? N LDL/HDL 2.69 1.47-3.22 [facility] ([facility]) Is patient fasting? N Risk Factor 4.1 3.2-4.4 [facility] ([facility]) Is patient fasting? N ID Date Data Source [id number] 10/30/2019 10:32:00 AM EST [facility] ([facility]) Name Value Range Interpretation Code Description Data Kendal rce(s) Supporting Document(s) Calcidiol [Mass/volume] in Serum or Plasma 25 ng/mL [facility] ([facility]) Is patient fasting? N Thyrotropin [Units/volume] in Serum or Plasma 1.76 uIU/mL 0.47-5.01 [facility] ([facility]) Is patient fasting? N ID Date Data Source [id number] 10/30/2019 10:32:00 AM EST [facility] ([facility]) Name Value Range Interpretation Code Description Data Kendal rce(s) Supporting Document(s) Sodium 138 meq/L 134-153 [facility] ([facility]) Is patient fasting? N Comprehensive Metabo (SEE NOTE) [facility] ( [facility]) Is patient fasting? N Chloride 102 meq/L 98-107 [facility] ([facility]) Is patient fasting? N Potassium 4.6 meq/L 3.6-5.0 [facility] ([facility]) Is patient fasting? N Co2 23 meq/L 22-30 [facility] ([facility]) Is patient fasting? N Glucose 104 mg/dL 65-110 [facility] ([facility]) Is patient fasting? N BUN/Creat 18 8-27 [facility] ([facility]) Is patient fasting? N Creatinine 0.9 mg/dL 0.7-1.5 [facility] ([facility]) Is patient fasting? N BUN 16 mg/dL 7-21 [facility] ([facility]) Is patient fasting? N Albumin 4.9 g/dL 3.9-5.0 [facility] ([facility]) Is patient fasting? N Total Protein 7.1 g/dL 6.3-8.2 [facility] ([facility]) Is patient fasting? N A/G Ratio 2.2 0.8-2.0 Above high normal [facility] ([facility]) Is patient fasting? N Globulin 2.2 GM/DL 2.4-3.2 Below low normal [facility] ( [facility]) Is patient fasting? N Calcium 10.1 mg/dL 8.4-10.[address] [facility] Is patient fasting? N Total Bili <0.7 mg/dL 0.2-1.3 [facility] ([facility]) Is patient fasting? N Alkaline Phos 44 U/L 38-126 [facility] ([facility]) Is patient fasting? N Sgot/Ast 23 U/L 5-40 [facility] ([facility]) Is patient fasting? N SGPT/Alt 24 U/L 7-56 [facility] ([facility]) Is patient fasting? N Anion Gap 13.0 mmol/L 8.0-16.[facility] Is patient fasting? N Age 49 yrs [facility] ([facility]) Is patient fasting? N Non-Aa GFR >60 mL/min [facility] Is patient fasting? N Afr Amer GFR >60 mL/min [facility]) Is patient fasting? N ID Date Data Source [id number] 10/30/2019 10:32:00 AM EST [facility] ([facility]) Name Value Range Interpretation Code Description Data Kendal rce(s) Supporting Document(s) CBC W/Automated Diff (SEE NOTE) [facility] ( [facility]) Is patient fasting? N WBC 8.8 10^3/uL 4.2-11.0 [facility] ([facility]) Is patient fasting? N RBC 4.78 10^6/uL 4.20-5.40 [facility] ([facility]) Is patient fasting? N Hematocrit 41.9 % 37.0-47.0 [facility] ([facility]) Is patient fasting? N Hemoglobin 13.3 g/dL 12.0-16.0 [facility] ([facility]) Is patient fasting? N MCHC 31.7 g/dL 31.0-36.0 [facility] ([facility]) Is patient fasting? N MCH 27.8 pg 27.0-34.0 [facility] ([facility]) Is patient fasting? N MCV 87.7 fL 81.0-101 [facility] ([facility]) Is patient fasting? N Platelets 339 10^3/uL 150-450 [facility] ([facility]) Is patient fasting? N RDW 13.0 % 11.5-14.5 [facility] ([facility]) Is patient fasting? N MPV 10.1 fL 7.4-10.4 [facility] ([facility]) Is patient fasting? N Neut 62.6 % 37.0-80.0 [facility] ([facility]) Is patient fasting? N Lymph 26.4 % 25.0-40.0 [facility] ([facility]) Is patient fasting? N [place] 7.4 % 3.0-8.0 [facility] ([facility]) Is patient fasting? N Eos 2.6 % 0.0-7.0 [facility] ([facility]) Is patient fasting? N Baso 0.7 % 0.0-2.5 [facility] ([facility]) Is patient fasting? N %Ig 0.3 % 0.0-0.0 Above high normal [facility] ([facility]) Is patient fasting? N #Neut 5.48 10^3/uL 2.00-6.90 [facility] ([facility]) Is patient fasting? N #Lymph 2.31 10^3/uL 0.60-3.40 [facility] ([facility]) Is patient fasting? N %NRBC 0.0 % 0.0-0.0 [facility] ([facility]) Is patient fasting? N #[place] 0.65 10^3/uL 0.00-0.90 [facility] ([facility]) Is patient fasting? N #Eos 0.23 10^3/uL 0.00-0.70 [facility] ([facility]) Is patient fasting? N #Ig 0.03 10^3/uL 0.00-0.10 [facility] ([facility]) Is patient fasting? N #Baso 0.06 10^3/uL 0.00-0.20 [facility] ([facility]) Is patient fasting? N #NRBC 0.00 10^3/uL 0.00-0.00 [facility] ([facility]) Is patient fasting? N Manual Diff NOT INDICATED [facility] ([facility]) Is patient fasting? N RBC Morph NOT INDICATED [facility] ([facility]) Is patient fasting? N ID Date Data Source [id number] 10/30/2019 07:45:00 PM [facility] Name Value Range Interpretation Code Description Data Kendal rce(s) Supporting Document(s) Thyrotropin [Units/volume] in Serum or Plasma by Detec tion limit <= 0.05 mIU/L 1.76 uIU/mL 0.47 - 5.01 [facility] ID Date Data Source [id number] 10/30/2019 07:45:00 PM [facility] Name Value Range Interpretation Code Description Data Kendal rce(s) Supporting Document(s) Calcidiol [Moles/volume] in Serum or Plasma 25 NG/ML [facility] VITAMIN-D(2 5HYDROXY) Deficiency: <=20 ng/ml Insufficiency: 21-29 ng/ml Preferred level: => 30 ng/ml ID Date Data Source [id number] 10/30/2019 07:41:00 PM [facility] Name Value Range Interpretation Code Description Data Kendal rce(s) Supporting Document(s) COMPREHENSIVE METABOLIC PANEL [facility] COMPREHENSIVE METABOLIC PANEL Sodium [Moles/volume] in Serum or Plasma 138 mEq/L 134 - 153 [facility] Potassium [Moles/volume] in Serum or Plasma 4.6 mEq/L 3.6 - 5.0 [facility] Chloride [Moles/volume] in Serum or Plasma 102 mEq/L 98 - 107 [facility] Carbon dioxide, total [Moles/volume] in Serum or Plasma 23 MEQ/L 22 - 30 [facility] Glucose [Mass/volume] in Serum or Plasma 104 MG/DL 65 - 110 [facility] BUN 16 MG/DL 7 - [facility] Creatinine [Mass/volume] in Serum or Plasma 0.9 MG/DL 0.7 - 1.5 [facility] BUN/CREAT 18 8 - 27 [facility] Protein [Mass/volume] in Serum or Plasma 7.1 G/DL 6.3 - 8.2 [facility] Albumin [Mass/volume] in Serum or Plasma 4.9 G/DL 3.9 - 5.0 [facility] Globulin [Mass/volume] in Serum by calculation 2.2 GM/DL 2.4 - 3.2 L [facility] A/G RATIO 2.2 0.8 - 2.[address] [facility] Calcium [Mass/volume] in Serum or Plasma 10.1 MG/DL 8.4 - 10.2 [facility] Bilirubin.total [Mass/volume] in Serum or Plasma <0.7 MG/DL 0.2 - 1.3 [facility] Alkaline phosphatase [Enzymatic activity/volume] in Serum or Plasma 44 U/L 38 - 126 [facility] Aspartate aminotransferase [Enzymatic activity/volume] in Serum or Plasma 23 U/L 5 - 40 [facility] Alanine aminotransferase [Enzymatic activity/volume] in Seru m or Plasma 24 U/L 7 - 56 [facility] Anion gap 3 in Serum or Plasma 13.0 mmol/L 8.0 - 16.0 [facility] AGE 49 yrs [facility] NON-AA GFR >60 mL/min [facility] AFR AMER GFR >60 mL/min [facility] Male GFR In terprentation 20-49 [...] >32 mL/min Normal ID Date Data Source [id number] 10/30/2019 07:41:00 PM EST [facility] Name Value Range Interpretation Code Description Data Kendal rce(s) Supporting Document(s) [facility] LIP[facility] PAN[facility] Cholesterol [Mass/volume] in Serum or Plasma 262 MG/DL 131 - 200 [facility] Deprecated Triglyceride [Mass/volume] in Serum or Plasma 286 MG/DL 3 5 - 160 [facility] HDL 64 MG/DL 29 - 86 [facility] Cholesterol in LDL/Cholesterol in HDL [Mass Ratio] in Serum or Plasma 172 mg/dL 65 - 175 [facility] Cholesterol.total/Cholesterol in HDL [Mass Ratio] in Serum o r Plasma 4.1 3.2 - 4.4 [facility] LDL/HDL 2.69 1.47 - 3.22 [facility] CVE RISK CHOL/HDL LDL/HDLMEN: 1/2 AVERAGE 3.43 1.00 AVERAGE 4.97 3.55 2X AVERAGE 9.55 6.25 3X AVERAGE 23.99 7.99WOMEN: 1/2 AVERAGE 3.27 1.47 AVERAGE 4.44 3.22 2X AVERAGE 7.05 5.03 3X AVERAGE 11.04 6.14 ID Date Data Source [id number] 10/30/2019 07:24:00 PM EST [facility] Name Value Range Interpretation Code Description Data Kendal e(s) Supporting Document(s) Hemoglobin A1c/Hemoglobin.total in Blood 6.1 % 4.4 - 6.1 [facility] {A1]{HB] ID Date Data Source [id number] 10/30/2019 07:15:00 PM [facility] Name Value Range Interpretation Code Description Data [facility](s) Supporting Document(s) CBC W/AUTOMATED DIFF [facility] COMPLETE BLOOD COUNT Leukocytes [#/volume] in Blood by Automated count 8.8 10^3/uL 4.2 - 1 1.0 [facility] Erythrocytes [#/volume] in Blood by Automated count 4.78 10^6/uL 4. 20 - 5.40 [facility] Hemoglobin [Mass/volume] in Blood 13.3 g/dL 12.0 - 16.0 [facility] Hematocrit [Volume Fraction] of Blood by Automated count 41.9 % 3 7.0 - 47.0 [facility] Erythrocyte mean corpuscular volume [Entitic volume] by Auto mated count 87.7 fL 81.0 - 101 [facility] Erythrocyte mean corpuscular hemoglobin [Entitic mass] by Automated count 27.8 pg 27.0 - 34.0 [facility] Erythrocyte mean corpuscular hemoglobin concentration [Mass/volume] by Automated count 31.7 g/dL 31.0 - 36.0 [facility] Erythrocyte distribution width [Ratio] by Automated count 13.0 % 11.5 - 14.5 [facility] Platelets [#/volume] in Blood by Automated count 339 10^3/uL 150 - 45 0 [facility] Platelet mean volume [Entitic volume] in Blood by Automated count 10.1 fL 7.4 - 10.4 [facility] Neutrophils/100 leukocytes in Blood by Automated count 62.6 % 37. 0 - 80.0 [facility] Lymphocytes/100 leukocytes in Blood by Manual count 26.4 % 25.0 - 40.0 [facility] Monocytes/100 leukocytes in Blood by Automated count 7.4 % 3.0 - 8.0 [facility] Eosinophils/100 leukocytes in Blood by Automated count 2.6 % 0.0 - 7.0 [facility] Basophils/100 leukocytes in Blood by Automated count 0.7 % 0.0 - 2.5 [facility] %IG 0.3 % 0.0 - 0.0 H [facility] al %NRBC 0.0 % 0.0 - 0.0 [facility] Neutrophils [#/volume] in Blood by Automated count 5.48 10^3/uL 2.00 - 6.90 [facility] Lymphocytes [#/volume] in Blood by Automated count 2.31 10^3/uL 0.60 - 3.40 [facility] Monocytes [#/volume] in Blood by Automated count 0.65 10^3/uL 0.00 - 0.90 [facility] Eosinophils [#/volume] in Blood by Automated count 0.23 10^3/uL 0.00 - 0.70 [facility] Basophils [#/volume] in Blood by Automated count 0.06 10^3/uL 0.00 - 0.20 [facility] #IG 0.03 10^3/uL 0.00 - 0.10 [facility] #NRBC 0.00 10^3/uL 0.00 - 0.00 [facility] MANUAL DIFF NOT INDICATED [facility] RBC MORPH NOT INDICATED [facility] Procedure Social History Code Duration Value Status Description Data Source(s ) Smoking 10/31/2020 12:00:00 AM EST Patient is a former smoker completed Patient is a [facility] Smoking 02/16/2020 12:00:00 AM EDT Patient is a former smoker completed Patient is a former smoker [facility] ([facility] ) Vital Signs ID Date Data Source UNK Name Value Range Interpretation Code Description Data Source(s) Body mass index (BMI) [Ratio] 30.0 kg/m2 30.0 k g/m2 [facility] ([facility] Body height 62 [in_i] 62 [in_i] [facility] ([facility]) 5'2" Body weight 164.00 [lb_av] 164.00 [lb_av] [facility] T ([facility] Body temperature 95.7 [degF] 95.7 [degF] [facility] ([facility]) Oxygen saturation in Arterial blood by Pulse oximetry 98 % 98 % [facility] ([facility]) Respiratory rate 13 /min 13 /min [facility] ( [facility] Heart rate 94 /min 94 /min [facility] ([facility]) Diastolic blood pressure 85 mm[Hg] 85 mm[Hg] [facility] ([facility]) Systolic blood pressure 124 mm[Hg] 124 mm[Hg] [facility] Body surface area Derived from formula 1.76 m2 1.76 m2 [facility] ([facility]) Body mass index (BMI) [Ratio] 29.8 kg/m2 29.8 k g/m2 [facility] ([facility]) Body height 62.25 [in_i] 62.25 [in_i] [facility] ([facility]) 5'2.25" Body weight 74.617 kg 74.617 kg [facility] ([facility]) Body weight 164.50 [lb_av] 164.50 [lb_av] MED[facility] T ([facility]) Oxygen saturation in Arterial blood by Pulse oximetry 98 % 98 % [facility] ([facility]) Respiratory rate 18 /min 18 /min [facility] ( [facility]) Body temperature 97.2 [degF] 97.2 [degF] [facility] ([facility]) Heart rate 82 /min 82 /min [facility] ([facility]) Diastolic blood pressure 80 mm[Hg] 80 mm[Hg] [facility] ([facility]) Systolic blood pressure 130 mm[Hg] 130 mm[Hg] M [facility] ([facility]) Body mass index (BMI) [Ratio] 30.0 kg/m2 30.0 k g/m2 [facility] ([facility], [facility]) Body height 62 [in_i] 62 [in_i] [facility] ([facility], [facility]) 5'2" Body weight 164.00 [lb_av] 164.00 [lb_av] MED[facility] T ([facility], [facility]) Body temperature 97.7 [degF] 97.7 [degF] [facility] ([facility], [facility]) Oxygen saturation in Arterial blood by Pulse oximetry 98 % 98 % [facility] ([facility], [facility]) Respiratory rate 18 /min 18 /min [facility] ( [facility], [facility]) Heart rate 85 /min 85 /min [facility] ([facility], [facility]) Diastolic blood pressure 84 mm[Hg] 84 mm[Hg] [facility] ([facility], [facility]) Systolic blood pressure 124 mm[Hg] 124 mm[Hg] M EDENT ([facility], [facility]) Diastolic blood pressure 88 mm[Hg] 88 mm[Hg] eCW1 ([facility]) Systolic blood pressure 128 mm[Hg] 128 mm[Hg] e CW1 ([facility]) Body mass index (BMI) [Ratio] 31.21 kg/m2 31.21 kg/m2 eCW1 ([facility]) Body height 61 [in_i] 61 [in_i] W1 ([facility]) Body weight 165.2 [lb_av] 165.2 [lb_av] eCW1 ([facility]) Body mass index (BMI) [Ratio] 30.0 kg/m2 30.0 k g/m2 [facility] ([facility], [facility]) Body height 62 [in_i] 62 [in_i] [facility] ([facility], [facility]) 5'2" Body weight 164.00 [lb_av] 164.00 [lb_av] MEDEN T ([facility], [facility]) Body temperature 98.1 [degF] 98.1 [degF] [facility] ([facility], [facility]) Oxygen saturation in Arterial blood by Pulse oximetry 97 % 97 % [facility] ([facility], [facility]) Respiratory rate 12 /min 12 /min [facility] ( [facility], [facility]) Heart rate 89 /min 89 /min [facility] ([facility], [facility]) Diastolic blood pressure 86 mm[Hg] 86 mm[Hg] [facility] ([facility], [facility]) Systolic blood pressure 127 mm[Hg] 127 mm[Hg] M EDENT ([facility], [facility]) Body weight 164.00 [lb_av] 164.00 [lb_av] MEDEN T ([facility], ) Respiratory rate 16 /min 16 /min [facility] ( [facility], ) Heart rate 76 /min 76 /min [facility] ([facility], ) Diastolic blood pressure 80 mm[Hg] 80 mm[Hg] [facility] ([facility], ) Systolic blood pressure 140 mm[Hg] 140 mm[Hg] M EDENT ([facility], ) Diastolic blood pressure 82 mm[Hg] 82 mm[Hg] eCW1 ([facility]) Systolic blood pressure 128 mm[Hg] 128 mm[Hg] e CW1 ([facility]) Body mass index (BMI) [Ratio] 29.85 kg/m2 29.85 kg/m2 [facility] ([facility]) Body height 61 [in_i] 61 [in_i] eCW1 ([facility]) Body weight 71.67 kg 71.67 kg eCW1 ([facility]) Body weight 158 [lb_av] 158 [lb_av] eCW1 ([facility]) Body mass index (BMI) [Ratio] 30.4 kg/m2 [...] from formula 1.77 m2 1.77 m2 [facility] ([facility]) Systolic blood pressure 126 mm[Hg] 126 mm[Hg] M EDENT ([facility]) Oxygen saturation in Arterial blood by Pulse oximetry 97 % 97 % [facility] ([facility]) Respiratory rate 18 /min 18 /min [facility] ( [facility]) Body temperature 98.2 [degF] 98.2 [degF] [facility] ([facility]) Heart rate 94 /min 94 /min [facility]) Diastolic blood pressure 82 mm[Hg] 82 mm[Hg] [facility] ([facility]) Body mass index (BMI) [Ratio] 29.9 kg/m2 29.9 k g/m2 [facility] ([facility]) Body height 62.25 [in_i] 62.25 [in_i] [facility] ([facility]) 5'2.25" Body weight 74.844 kg 74.8[address] [facility] ([facility]) Body weight 165.00 [lb_av] 165.00 [lb_av] MEDEN T ([facility]) Body surface area 1.77 m2 1.77 m2 [facility] ([facility]) Body surface area 1.77 m2 1.77 m2 [facility] ([facility]) Body mass index (BMI) [Ratio] 30.0 kg/m2 30.0 k g/m2 [facility] ([facility]) Body height 62.25 [in_i] 62.25 [in_i] [facility] ([facility]) 5'2.25" Body weight 74.901 kg [facility].901 [facility] Body weight 165.12 [lb_av] 165.12 [lb_av] MED[facility] T ([facility]) Oxygen saturation in Arterial blood by Pulse oximetry 97 % 97 % [facility] Respiratory rate 16 /min 16 /min [facility] ( [facility]) Body temperature 97.9 [degF] 97.9 [degF] [facility] ([facility]) Heart rate 88 /min 88 /min [facility]) Diastolic blood pressure 76 mm[Hg] 76 mm[Hg] [facility] ([facility]) Systolic blood pressure 132 mm[Hg] 132 mm[Hg] [facility] ([facility]) Respiratory rate 16 /min 16 /min [facility] ( [facility], ) Heart rate 80 /min 80 /min [facility] ([facility], ) Diastolic blood pressure 78 mm[Hg] 78 mm[Hg] [facility] ([facility], ) Systolic blood pressure 110 mm[Hg] 110 mm[Hg] [facility] ([facility], ) Body mass index (BMI) [Ratio] 28.5 kg/m2 28.5 k g/m2 [facility] ([facility], [facility]) Body height 62 [in_i] 62 [in_i] [facility] ([facility], [facility]) 5'2" Body weight 156.00 [lb_av] 156.00 [lb_av] [facility] ([facility], [facility]) Body temperature 98.3 [degF] 98.3 [degF] [facility] ([facility], [facility]) Oxygen saturation in Arterial blood by Pulse oximetry 99 % 99 % [facility] ([facility], [facility]) Respiratory rate 16 /min 16 /min [facility] ( [facility], [facility]) Heart rate 60 /min 60 /min [facility] ([facility], [facility]) Diastolic blood pressure 83 mm[Hg] 83 mm[Hg] [facility] ([facility], [facility]) Systolic blood pressure 139 mm[Hg] 139 mm[Hg] [facility] ([facility], [facility])
[2020-11-12 14:46] LABS: BASO # 0.1 10^3/uL (0.0-0.2); BASO % 0.5 % (0.0-1.0); EOS # 0.1 10^3/uL (0.0-0.5); EOS % 0.6 % (0.0-3.0); HEMATOCRIT 43.5 % (36.0-47.0); HEMOGLOBIN 14.3 g/dl (12.0-15.5); LYMPH # 2.6 10^3/uL (1.5-5.0); LYMPH % 16.7 % (24.0-44.0); MEAN CORPUSCULAR HEMOGLOBIN 27.6 pg (27.0-33.0); MEAN CORPUSCULAR HGB CONC 32.9 g/dl (32.0-36.5); MONO % 6.6 % (2.0-8.0); NEUTROPHILS # 11.7 10^3/uL (1.5-8.5); NEUTROPHILS % 75.2 % (36.0-66.0); PLATELET COUNT, AUTOMATED 345 10^3/uL (150-450); RED BLOOD COUNT 5.18 10^6/uL (4.00-5.40); WHITE BLOOD COUNT 15.5 10^3/uL (4.0-10.0)
[2020-11-12] MEDS ORDERED: MORPHINE 4 MG/ML 1ML VIAL/SYRINGE (J2270) IV PRN (14:50)
[2020-11-12] MEDS ORDERED: ONDANSETRON 4MG/2ML VIAL IV ONE (14:50)
[2020-11-12] MEDS ORDERED: ISOVUE-370 76% 100ML VIAL As Ordered ONE (15:12)
[2020-11-12 15:13] LABS: ALBUMIN 4.1 GM/DL (3.2-5.2); BILIRUBIN,DIRECT 0.1 MG/DL (0.0-0.2); BILIRUBIN,TOTAL 0.5 MG/DL (0.2-1.0); TOTAL PROTEIN 7.3 GM/DL (6.4-8.2)
--- NOTE | 2020-11-12 15:57 | REP ---
INDICATION: abd pain. COMPARISON: 08/12/2019. TECHNIQUE: Bolus of 100 mL Isovue 370 scanning through the abdomen pelvis with coronal and sagittal reconstructions provided. FINDINGS: CT abdomen: Of the lung bases are clear the heart is not enlarged there is no pericardial thickening or effusion. No hiatal hernia. Stomach unremarkable. Liver, spleen, gallbladder, pancreas, adrenal glands, aorta and its branches as well as the kidneys are unremarkable. Small bowel loops and colon in the abdomen proper were unremarkable. Lung window review shows no evidence of perforation or free air in the abdomen. Adrenal glands are normal pancreas intact kidneys show function without obstruction stone or mass. Bone windows show lumbar and lower thoracic vertebral bodies without compression deformity. There is disc space narrowing at L5-S1 with anterior posterior osteophytes. There is a right hemilaminectomy at L5-S1. Visualized ribs are intact. CT pelvis: Bony sacrum shows prominent marginal osteophyte along the right lateral aspect the L5-S1 joint. SI joints without erosion or fracture. Sacral ala, iliac bones, acetabular the, ischia and hips are without fracture. There is a bone island in the left femoral head. The kidneys show no hydronephrosis, solid mass or perinephric fluid. There is a peripelvic cyst in the lower pole on the left with disc extending into the cortex. No solid renal mass or stone. There is a segment of sigmoid colon in its mid to distal course with thickened edematous judd and inflammatory changes in the adjacent fat I do not see a definite perforation. There are a few diverticula evident. There is thickening of the rectal wall as well. There is no pelvic lymphadenopathy or significant ascites. No abscess. Small bowel loops grossly intact. Appendix is seen and normal. Its takeoff and course extend to the midline presacral region. IMPRESSION: There is evidence of diverticulitis in the mid to distal sigmoid without evidence of perforation. There are inflammatory changes in the fat adjacent to this portion of colon. There is no free fluid or abscess noted. No perforation or free air. There are no other significant findings in the abdomen pelvis. <Electronically signed by Shahid Alonso > 11/12/20 1920
[2020-11-12] MEDS ORDERED: CIPR-249 PO (16:10)
[2020-11-12] MEDS ORDERED: FLAG500T PO (16:11)
[2020-11-12 16:45] VITALS: BP 104/62
== END 2020-11-12 16:57 | disposition home or self-care (01) ==
LOC: M ED 13:54
DX: K57.32 Diverticulitis of large intestine without perforation or abscess without bleeding (principal); J45.909 Unspecified asthma, uncomplicated; Z87.891 Personal history of nicotine dependence; Z88.6 Allergy status to analgesic agent; Z88.8 Allergy status to other drugs, medicaments and biological substances
CPT/HCPCS: 74177; 80047; 80076; 83690; 85025; 96374; 99284; J2270; J2405; Q9967

== ENCOUNTER → 2020-11-15 | Outpatient (CLI) | payer BC ==
[~2020-11-15] MED LIST changes: +CIPR-249 PO; +FLAG500T PO; +GASTROGRAFIN SOLUTION 30ML (Q9963) As Ordered ONE; +PROHANCE 279.3MG/ML 15ML VIAL As Ordered ONE; +SULF1TAB93 PO
--- NOTE | 2020-11-16 09:00 | REP ---
INDICATION: FAM HX OF BREAST CA, DENSE BREAST. COMPARISON: Mammogram 04/08/2020. TECHNIQUE: Three [place] MRI imaging was performed with a dedicated breast coil. Axial, coronal, and sagittal T1 and T2 weighted scans were obtained with and without fat saturation in the usual fashion. The study includes dynamically acquired post gadolinium-enhanced imaging with image subtraction. Maximum intensity projection and multi planar reformation imaging is included as well. This study is interpreted with the aid of AMS VariCode, an FDA approved computer aided detection (CAD) software program, on a dedicated breast MRI workstation. The gadolinium enhancement dose is 14 mL of intravenous ProHance. FINDINGS: There is mild scattered fibroglandular tissue bilaterally. No significant cystic changes seen in either breast. There is no evidence of axillary adenopathy. There is very mild background parenchymal enhancement bilaterally. There is no suspicious enhancing mass or morphologic abnormality. IMPRESSION: BI-RADS category 1, negative bilateral breast MRI. No suspicious enhancing mass or morphologic abnormality. Yearly supplemental screening MRI of the breasts is recommended for patients with an elevated lifetime risk of breast cancer of 20% or greater, in addition to annual screening mammography, staggered every 6 months. <Electronically signed by Daniel Ford > 11/16/20 [id number]
== END ==
LOC: M RAD 15:12
PROVIDERS: ATTEND Nurse Practitioner Women's Health
DX: R92.2 Inconclusive mammogram (principal); Z91.89 Other specified personal risk factors, not elsewhere classified; Z80.3 Family history of malignant neoplasm of breast
CPT/HCPCS: A9576; C8908

== ENCOUNTER → 2020-12-14 | Outpatient (REF) | payer BC ==
[~2020-12-14] MED LIST changes: -GASTROGRAFIN SOLUTION 30ML (Q9963) As Ordered ONE; -PROHANCE 279.3MG/ML 15ML VIAL As Ordered ONE
== END ==
LOC: M LAB REF 13:48
PROVIDERS: ATTEND Dermatology
DX: D23.62 Other benign neoplasm of skin of left upper limb, including shoulder (principal)

== ENCOUNTER → 2021-03-12 | Outpatient (CLI) | payer BC ==
[~2021-03-12] MED LIST changes: +BACTDSTA PO; +D31000TA2 PO; +ERGO500029; +FLON1SPR NARES; +HYDR-4514; -SULF1TAB93 PO; +SUMA100T2; +VITMTA PO; +ZYRTTAB8 PO
== END ==
LOC: M LABSMTC 08:17
PROVIDERS: ATTEND Anesthesiology
DX: Z01.818 Encounter for other preprocedural examination (principal); Z11.52 Encounter for screening for COVID-19

== ENCOUNTER 2021-03-17 10:35 | Day surgery (SDC) | payer BC ==
[~2021-03-17] VITALS: Ht 157.5 cm; Wt 72.6 kg
[~2021-03-17 10:35] MED LIST changes: +NS 1,000 ML IV ONE
[2021-03-17] MEDS ORDERED: LIDOCAINE 2% MDV 20ML VIAL As Ordered ONE ×3 (10:57→11:59)
[2021-03-17] MEDS ORDERED: propofoL 200 MG/20 ML VIAL As Ordered ONE ×3 (10:57→11:59)
--- NOTE | 2021-03-17 12:14 | ROOR ---
Patient Name: Ashlee Christine Procedure Date: 03/17/2021 11:54 AM Date of : 1970 Age: 51 Room: [facility] Gender: Female Note Status: Finalized Procedure: Colonoscopy Indications: Abnormal CT of the GI tract Providers: Cholo Gordillo Jr, MD Referring MD: GAYATHRI LEWIS NP Requesting Provider: Medicines: Propofol per Anesthesia Complications: No immediate complications. Procedure: Pre-Anesthesia Assessment: - Prior to the procedure, a History and Physical was performed, and patient medications and allergies were reviewed. The patient is competent. The risks and benefits of the procedure and the sedation options and risks were discussed with the patient. All questions were answered and informed consent was obtained. Patient identification and proposed procedure were verified by the physician and the nurse in the pre-procedure area and in the procedure room. Mental Status Examination: alert and oriented. Airway Examination: normal oropharyngeal airway and neck mobility. Respiratory Examination: clear to auscultation. CV Examination: normal. ASA Grade Assessment: II - A patient with mild systemic disease. After reviewing the risks and benefits, the patient was deemed in satisfactory condition to undergo the procedure. The anesthesia plan was to use moderate sedation / analgesia (conscious sedation). Immediately prior to administration of medications, the patient was re-assessed for adequacy to receive sedatives. The heart rate, respiratory rate, oxygen saturations, blood pressure, adequacy of pulmonary ventilation, and response to care were monitored throughout the procedure. The physical status of the patient was re-assessed after the procedure. The Colonoscope was introduced through the anus and advanced to the cecum, identified by appendiceal orifice and ileocecal valve. The colonoscopy was performed without difficulty. The quality of the bowel preparation was adequate. Findings: A few small-mouthed diverticula were found in the ascending colon and cecum. The rectum, recto-sigmoid colon, descending colon and transverse colon appeared normal. Scattered small-mouthed diverticula were found in the sigmoid colon. A small polyp was found in the sigmoid colon. The polyp was removed with a jumbo cold forceps. Resection and retrieval were complete. Impression: - Diverticulosis in the ascending colon and in the cecum. - The rectum, recto-sigmoid colon, descending colon and transverse colon are normal. - Diverticulosis in the sigmoid colon. - One small polyp in the sigmoid colon, removed with a jumbo cold forceps. Resected and retrieved. Recommendation: - Discharge patient to home (ambulatory). - Repeat colonoscopy in 5-10 years for surveillance. Procedure Code(s): --- Professional --- 10870, Colonoscopy, flexible; with biopsy, single or multiple Diagnosis Code(s): --- Professional --- K63.5, Polyp of colon K57.30, Diverticulosis of large intestine without perforation or abscess without bleeding R93.3, Abnormal findings on diagnostic imaging of other parts of digestive tract CPT copyright 2019 [employer]. All rights reserved. The codes documented in this report are preliminary and upon gas or petroleum operator review may be revised to meet current compliance requirements. Cholo Gordillo MD Cholo Gordillo Jr, MD 03/17/2021 12:14:01 PM Electronically signed by Cholo Gordillo Jr, MD Number of Addenda: 0 Note Initiated On: 03/17/2021 11:54 AM Estimated Blood Loss: Estimated blood loss: none.
[2021-03-17 12:35] VITALS: BP 140/77
== END 2021-03-17 12:41 | disposition home or self-care (01) ==
LOC: M OPP 10:35
PROVIDERS: ATTEND Surgery
DX: K63.5 Polyp of colon (principal); K57.30 Diverticulosis of large intestine without perforation or abscess without bleeding; R93.3 Abnormal findings on diagnostic imaging of other parts of digestive tract; R10.84 Generalized abdominal pain; Z79.891 Long term (current) use of opiate analgesic; Z79.899 Other long term (current) drug therapy; Z88.5 Allergy status to narcotic agent

== ENCOUNTER → 2021-04-10 | Outpatient (REF) | payer BC ==
[~2021-04-10] MED LIST changes: -NS 1,000 ML IV ONE
== END ==
LOC: M LAB REF 18:43
PROVIDERS: ATTEND Physician Assistant Medical
DX: J02.9 Acute pharyngitis, unspecified (principal)

== ENCOUNTER → 2021-05-25 | Outpatient (REF) | payer BC ==
[2021-05-25 22:40] LABS: AMORPHOUS SEDIMENT SMALL (NEGATIVE); APPEARANCE, URINE CLOUDY (CLEAR); BACTERIA, URINE AUTO NEGATIVE (NEGATIVE); BILIRUBIN, URINE AUTO NEGATIVE (NEGATIVE); BLOOD, URINE BLOOD NEGATIVE (NEGATIVE); COLOR, URINE YELLOW (YELLOW); GLUCOSE, URINE (UA) AUTO NEGATIVE (NEGATIVE); KETONE, URINE AUTO NEGATIVE (NEGATIVE); LEUKOCYTE ESTERASE, URINE AUTO NEGATIVE (NEGATIVE); NITRITE, URINE AUTO NEGATIVE (NEGATIVE); PROTEIN, URINE AUTO NEGATIVE (NEGATIVE); RBC, URINE AUTO 2 /HPF (0-3); SPECIFIC GRAVITY URINE AUTO 1.016 (1.002-1.035); SQUAMOUS EPITHELIAL CELL UR AU 3 /HPF (0-6); UROBILINOGEN, URINE AUTO 0.2 mg/dL (0.0-2.0); WBC, URINE AUTO 2 /HPF (0-3)
== END ==
LOC: M LAB REF 22:12
PROVIDERS: ATTEND Physician Assistant
DX: R30.0 Dysuria (principal)

== ENCOUNTER → 2021-07-27 | Outpatient (CLI) | payer BC ==
[~2021-07-27] MED LIST changes: -FENO48TA7 PO; +FENO48TA8 PO
[2021-07-27 10:00] LABS: HEMATOCRIT 40.3 % (36.0-47.0); HEMOGLOBIN 13.1 g/dl (12.0-15.5); MEAN CORPUSCULAR HEMOGLOBIN 27.3 pg (27.0-33.0); MEAN CORPUSCULAR HGB CONC 32.5 g/dl (32.0-36.5); MEAN CORPUSCULAR VOLUME 84.1 fl (80.0-96.0); PLATELET COUNT, AUTOMATED 383 10^3/uL (150-450); RED BLOOD COUNT 4.79 10^6/uL (4.00-5.40); WHITE BLOOD COUNT 10.8 10^3/uL (4.0-10.0)
== END ==
LOC: M LAB 09:20
PROVIDERS: ATTEND Surgery
DX: Z12.11 Encounter for screening for malignant neoplasm of colon (principal)

== ENCOUNTER → 2021-08-01 | Outpatient (REF) | payer BC ==
[2021-08-01 22:24] LABS: APPEARANCE, URINE CLEAR (CLEAR); BACTERIA, URINE AUTO NEGATIVE (NEGATIVE); BILIRUBIN, URINE AUTO NEGATIVE (NEGATIVE); BLOOD, URINE BLOOD 1+ (NEGATIVE); COLOR, URINE YELLOW (YELLOW); GLUCOSE, URINE (UA) AUTO NEGATIVE (NEGATIVE); KETONE, URINE AUTO NEGATIVE (NEGATIVE); LEUKOCYTE ESTERASE, URINE AUTO NEGATIVE (NEGATIVE); MUCUS, URINE SMALL (NEGATIVE); NITRITE, URINE AUTO NEGATIVE (NEGATIVE); PROTEIN, URINE AUTO NEGATIVE (NEGATIVE); RBC, URINE AUTO 1 /HPF (0-3); SQUAMOUS EPITHELIAL CELL UR AU 1 /HPF (0-6); UROBILINOGEN, URINE AUTO 0.2 mg/dL (0.0-2.0); WBC, URINE AUTO 1 /HPF (0-3)
== END ==
LOC: M LAB REF 21:40
PROVIDERS: ATTEND Physician Assistant
DX: N39.0 Urinary tract infection, site not specified (principal)

== ENCOUNTER → 2021-08-17 | Outpatient (REF) | payer BC ==
[2021-08-19 09:11] LABS: LDL DIRECT 109 mg/dL (0-99)
== END ==
LOC: M LAB REF 16:24
PROVIDERS: ATTEND Internal Medicine
DX: R19.7 Diarrhea, unspecified (principal); E78.00 Pure hypercholesterolemia, unspecified

== ENCOUNTER → 2021-08-18 | Outpatient (REF) | payer BC | LOC: M LAB REF 18:40 | PROVIDERS: ATTEND Internal Medicine | DX: R19.7 Diarrhea, unspecified (principal) ==

== ENCOUNTER → 2021-12-15 | Outpatient (CLI) | payer OTHER ==
[~2021-12-15] MED LIST changes: -D31000TA2 PO; +VITA100093 PO
== END ==
LOC: M RAD 10:55
PROVIDERS: ATTEND Otolaryngology
DX: J31.0 Chronic rhinitis (principal)

== ENCOUNTER 2022-08-17 07:55 | Emergency (ER) | payer OTHER ==
[~2022-08-17] VITALS: Ht 160 cm; Wt 74.1 kg
[~2022-08-17 07:55] MED LIST changes: -DOXY-350 PO; +DOXY-444 PO
[2022-08-17] MEDS ORDERED: FENO45CA3 (08:05)
[2022-08-17] MEDS ORDERED: SUMA100T2 (08:05)
[2022-08-17] MEDS ORDERED: TIZA10TA (08:05)
[2022-08-17 08:38] LABS: BASO % 0.3 % (0.0-1.0); EOS # 0.1 10^3/uL (0.0-0.5); EOS % 1.3 % (0.0-3.0); HEMATOCRIT 41.6 % (36.0-47.0); HEMOGLOBIN 13.7 g/dl (12.0-15.5); LYMPH # 1.1 10^3/uL (1.5-5.0); LYMPH % 17.2 % (24.0-44.0); MEAN CORPUSCULAR HEMOGLOBIN 27.5 pg (27.0-33.0); MEAN CORPUSCULAR HGB CONC 32.9 g/dl (32.0-36.5); MEAN CORPUSCULAR VOLUME 83.5 fl (80.0-96.0); MONO # 0.5 10^3/uL (0.0-0.8); MONO % 8.5 % (2.0-8.0); NEUTROPHILS # 4.6 10^3/uL (1.5-8.5); NEUTROPHILS % 72.5 % (36.0-66.0); PLATELET COUNT, AUTOMATED 314 10^3/uL (150-450); RED BLOOD COUNT 4.98 10^6/uL (4.00-5.40); WHITE BLOOD COUNT 6.4 10^3/uL (4.0-10.0)
[2022-08-17 09:01] LABS: BILIRUBIN,DIRECT 0.1 MG/DL (<0.4)
[2022-08-17] MEDS ORDERED: ONDANSETRON 4MG 2ML VIAL IV ONE (09:05)
[2022-08-17] MEDS ORDERED: NS 1,000 ML IV ONE (09:05)
[2022-08-17 09:09] LABS: ALBUMIN 4.1 G/DL (3.2-5.2); BILIRUBIN,TOTAL 0.5 MG/DL (0.3-1.2); CALCIUM LEVEL 9.3 MG/DL (8.5-10.1); CREATININE FOR GFR 1.44 MG/DL (0.55-1.30); GLOMERULAR FILTRATION RATE 40.4 (>51); POTASSIUM SERUM 4.3 MMOL/L (3.5-5.1); TOTAL PROTEIN 6.8 G/DL (5.7-8.2)
[2022-08-17 10:14] LABS: RSV AMPLIFICATION NEGATIVE (NEGATIVE)
[2022-08-17 11:17] LABS: APPEARANCE, URINE MANUAL CLEAR (CLEAR); COLOR, URINE MANUAL YELLOW (YELLOW); SPECIFIC GRAVITY,URINE MANUAL 1.015 (1.002-1.035)
[2022-08-17 11:18] LABS: BILIRUBIN, URINE MANUAL NEGATIVE (NEGATIVE); BLOOD URINE MANUAL TRACE (NEGATIVE); GLUCOSE, URINE (UA) MANUAL NEGATIVE (NEGATIVE); KETONE, URINE MANUAL NEGATIVE (NEGATIVE); LEUKOCYTE ESTERASE, URINE MAN NEGATIVE (NEGATIVE); NITRITE, URINE MANUAL NEGATIVE (NEGATIVE); PROTEIN, URINE MANUAL NEGATIVE (NEGATIVE); UROBILINOGEN, URINE MANUAL NORMAL (NORMAL)
[2022-08-17 11:27] LABS: BACTERIA, URINE SMALL AMOUNT; MUCUS, URINE SMALL AMOUNT (NEGATIVE); RBC, URINE 0-1 /hpf (0-3); SQUAMOUS EPITHELIAL CELL URINE SMALL AMOUNT /hpf (SMALL AMT)
[2022-08-17 12:06] VITALS: BP 122/73
[2022-08-17] MEDS ORDERED: ONDA4TAB6 PO (12:19)
[2022-08-17] MEDS ORDERED: PROT1TAB2 PO (12:19)
== END 2022-08-17 12:36 | disposition home or self-care (01) ==
LOC: M ED 07:55
DX: R10.11 Right upper quadrant pain (principal); R19.7 Diarrhea, unspecified; R11.2 Nausea with vomiting, unspecified; K76.0 Fatty (change of) liver, not elsewhere classified; J45.909 Unspecified asthma, uncomplicated; R51.9 Headache, unspecified; Z88.5 Allergy status to narcotic agent; Z79.899 Other long term (current) drug therapy
CPT/HCPCS: 36415; 74176; 76705; 80048; 80076; 81000; 81015; 83690; 85025; 87631; 96361; 96374; 99284; J2405

== ENCOUNTER → 2023-01-16 | Outpatient (CLI) | payer BC, SELFPAY ==
[~2023-01-16] MED LIST changes: +FENO45CA3; +MONT-5 PO; -SING10TA32 PO; +TIZA10TA
== END ==
LOC: M WHC 16:12
PROVIDERS: ATTEND Internal Medicine
DX: Z12.31 Encounter for screening mammogram for malignant neoplasm of breast (principal)

== ENCOUNTER 2023-01-18 04:31 | Emergency (ER) | payer BC ==
[~2023-01-18] VITALS: Ht 160 cm; Wt 76.9 kg
[2023-01-18] MEDS ORDERED: ALLE180T33 PO (04:42)
[2023-01-18 05:19] LABS: BASO # 0.1 10^3/uL (0.0-0.2); BASO % 1.4 % (0.0-1.0); EOS # 0.4 10^3/uL (0.0-0.5); EOS % 4.6 % (0.0-3.0); HEMATOCRIT 41.2 % (36.0-47.0); HEMOGLOBIN 13.6 g/dl (12.0-15.5); LYMPH # 2.6 10^3/uL (1.5-5.0); LYMPH % 33.1 % (24.0-44.0); MEAN CORPUSCULAR HEMOGLOBIN 27.1 pg (27.0-33.0); MEAN CORPUSCULAR VOLUME 82.1 fl (80.0-96.0); MONO # 0.5 10^3/uL (0.0-0.8); MONO % 6.8 % (2.0-8.0); NEUTROPHILS # 4.3 10^3/uL (1.5-8.5); NEUTROPHILS % 53.8 % (36.0-66.0); PLATELET COUNT, AUTOMATED 356 10^3/uL (150-450); RED BLOOD COUNT 5.02 10^6/uL (4.00-5.40)
[2023-01-18 05:29] LABS: INR 0.89; PROTHROMBIN TIME 12.2 SECONDS (12.5-14.5)
[2023-01-18 05:50] LABS: CK-MB VALUE MASS < 1.0 NG/ML (<3.6); LIPASE 47 U/L (12-53)
[2023-01-18 05:51] LABS: AMYLASE 43 U/L (30-118); CPK CREATINE PHOSPHOKINASE 90 U/L (34-145); MB/CK RELATIVE INDEX 1.11 (< OR =4)
[2023-01-18 05:52] LABS: ALBUMIN 4.2 G/DL (3.2-5.2); ALKALINE PHOSPHATASE 52 U/L (46-116); ALT/SGPT 30 U/L (7.0-40); AST/SGOT 19 U/L (<34); BILIRUBIN,DIRECT < 0.1 MG/DL (<0.4); BILIRUBIN,TOTAL 0.2 MG/DL (0.3-1.2); BLOOD UREA NITROGEN 15 MG/DL (9-23); CALCIUM LEVEL 9.6 MG/DL (8.5-10.1); CARBON DIOXIDE LEVEL 25 MMOL/L (20-31); CHLORIDE LEVEL 104 MMOL/L (98-107); CREATININE FOR GFR 0.87 MG/DL (0.55-1.30); GLOMERULAR FILTRATION RATE > 60.0 (>51); GLUCOSE, FASTING 145 MG/DL (60-100); POTASSIUM SERUM 4.3 MMOL/L (3.5-5.1); SODIUM LEVEL 138 MMOL/L (136-145); TOTAL PROTEIN 6.7 G/DL (5.7-8.2)
[2023-01-18] MEDS ORDERED: ISOVUE-370 76% 100ML VIAL As Ordered ONE (07:11)
[2023-01-18 09:21] VITALS: BP 153/94
== END 2023-01-18 09:29 | disposition home or self-care (01) ==
LOC: M ED 04:31
DX: R10.11 Right upper quadrant pain (principal); R11.2 Nausea with vomiting, unspecified; R19.7 Diarrhea, unspecified; K57.92 Diverticulitis of intestine, part unspecified, without perforation or abscess without bleeding; J45.909 Unspecified asthma, uncomplicated; Z87.891 Personal history of nicotine dependence; Z88.5 Allergy status to narcotic agent; Z79.899 Other long term (current) drug therapy
CPT/HCPCS: 74174; 80048; 80076; 81001; 82150; 82550; 82553; 83690; 84484; 85025; 85610; 93005; 99284; Q9967

== ENCOUNTER → 2024-05-29 | Outpatient (CLI) | payer BC ==
[~2024-05-29] MED LIST changes: +DOXY-440 PO; -DOXY-444 PO; +ONDA-282 PO; -ONDA4TAB6 PO
== END ==
LOC: M PLAIMG 07:41
PROVIDERS: ATTEND Internal Medicine
DX: R93.0 Abnormal findings on diagnostic imaging of skull and head, not elsewhere classified (principal)

== ENCOUNTER → 2024-06-06 | Outpatient (CLI) | payer BC | LOC: M WHC 08:15 | PROVIDERS: ATTEND Internal Medicine | DX: Z12.31 Encounter for screening mammogram for malignant neoplasm of breast (principal) ==

== ENCOUNTER → 2024-09-02 | Outpatient (REF) | payer BC | LOC: M LAB REF 13:12 | PROVIDERS: ATTEND Internal Medicine | DX: R10.13 Epigastric pain (principal) ==

== ENCOUNTER → 2024-09-08 | Outpatient (CLI) | payer BC | LOC: M WHC 09-03 08:19 | PROVIDERS: ATTEND Internal Medicine | DX: K76.0 Fatty (change of) liver, not elsewhere classified (principal) ==

== ENCOUNTER → 2024-09-19 | Outpatient (REF) | payer BC ==
[2024-09-21 02:42] LABS: LDL DIRECT 119 mg/dL (<100)
== END ==
LOC: M LAB REF 16:14
PROVIDERS: ATTEND Internal Medicine
DX: E78.00 Pure hypercholesterolemia, unspecified (principal)

== ENCOUNTER → 2024-11-28 | Outpatient (REF) | payer BC | LOC: M LAB REF 18:13 | PROVIDERS: ATTEND Internal Medicine Gastroenterology | DX: A04.71 Enterocolitis due to Clostridium difficile, recurrent (principal); R19.7 Diarrhea, unspecified ==

== ENCOUNTER → 2024-12-24 | Outpatient (CLI) | payer BC | LOC: M LAB 17:58 | PROVIDERS: ATTEND Surgery | DX: R19.7 Diarrhea, unspecified (principal) ==

== ENCOUNTER → 2025-01-23 | Outpatient (CLI) | payer BC ==
[~2025-01-23] MED LIST changes: +E-Z-GAS II EFFERVESCENT PACKET (SODIUM BICARB./CITRIC ACID/SIMETHICONE) As Ordered ONE; +E-Z-HD 98% w/w 340GM SUSP BTL As Ordered ONE; +E-Z-PAQUE 96% w/w SUSP 176GM BTL As Ordered ONE
== END ==
LOC: M RAD 10:00
PROVIDERS: ATTEND Surgery
DX: R19.7 Diarrhea, unspecified (principal)

== ENCOUNTER → 2025-05-28 | Outpatient (CLI) | payer BC ==
[~2025-05-28] MED LIST changes: -E-Z-GAS II EFFERVESCENT PACKET (SODIUM BICARB./CITRIC ACID/SIMETHICONE) As Ordered ONE; -E-Z-HD 98% w/w 340GM SUSP BTL As Ordered ONE; -E-Z-PAQUE 96% w/w SUSP 176GM BTL As Ordered ONE; +FENO45CA; -FENO45CA3
== END ==
LOC: M WHC 13:52
PROVIDERS: ATTEND Nurse Practitioner Family
DX: Z12.31 Encounter for screening mammogram for malignant neoplasm of breast (principal); Z53.9 Procedure and treatment not carried out, unspecified reason

== ENCOUNTER → 2025-05-28 | Outpatient (REF) | payer BC ==
[2025-06-04 12:57] LABS: HPV VAGINAL Not Detected (NOT DETECT)
== END ==
LOC: M SFHCWAGY 16:46
PROVIDERS: ATTEND Nurse Practitioner Family
DX: Z12.72 Encounter for screening for malignant neoplasm of vagina (principal); Z11.51 Encounter for screening for human papillomavirus (HPV); N94.10 Unspecified dyspareunia
CPT/HCPCS: 87070; 87624; G0123

== ENCOUNTER → 2025-07-13 | Outpatient (CLI) | payer BC | LOC: M PLALAB 13:56 | PROVIDERS: ATTEND Surgery | DX: Z91.89 Other specified personal risk factors, not elsewhere classified (principal); Z80.3 Family history of malignant neoplasm of breast ==

== ENCOUNTER → 2025-09-02 | Outpatient (CLI) | payer BC ==
[~2025-09-02] MED LIST changes: -BACTDSTA PO; +SULF-8 PO
== END ==
LOC: M RAD 13:58
PROVIDERS: ATTEND Otolaryngology
DX: J31.0 Chronic rhinitis (principal)